=== PATIENT | male | born 1980 | race Caucasian/White ===

== ENCOUNTER 2017-08-26 16:59 | Emergency (ER) | payer SELFPAY ==
[~2017-08-26] VITALS: Ht 193 cm; Wt 111.1 kg
[~2017-08-26 16:59] MED LIST: ALBU0.632 IH; CLIN-62 PO; CODE-54 PO; DOXY-233 PO; DOXY100C2 PO; HYDR-3583 PO; HYDR1TAB PO; PIRB14AE4 IH
--- OUTSIDE RECORDS SUMMARY | 2017-08-26 17:05 | XMS REPORT ---
Author Author HERIBERTO BRO [facility] Address [address] [place] [address] Care Team Providers Care Sales Department Clerk Name Role Phone HERIBERTO BRO Unavailable PROBLEMS Type Condition ICD9-CM Code [id number] Code Onset Dates Condition Status SNOMED Code Problem Uncontrolled type 2 diabetes mellitus without complication, without long-term current use of insulin E11.65 Active 493049707 Problem Diabetes type 2, uncontrolled E11.65 Active 860817167 Problem Diabetes type 2, controlled E11.9 Active 28437146 Problem Hypertension, benign I10 Active 30918510 Problem Hyperlipemia, mixed E78.2 Active 842090249 ALLERGIES Substance Reaction Event Type Date Status Penicillin V Potassium Unknown Drug Allergy October, Active SOCIAL HISTORY Never Assessed PLAN OF CARE Activity Details Follow Up 4 Weeks Reason:dm2 ooc VITAL SIGNS Height 76 in 2016-10-26 Weight 230 lbs 2016-10-26 Temperature 98.3 degrees Fahrenheit 2016-10-26 Heart Rate 74 bpm 2016-10-26 Respiratory Rate 18 2016-10-26 BMI 27.99 kg/m2 2016-10-26 Blood pressure systolic 126 mmHg 2016-10-26 Blood pressure diastolic 68 mmHg 2016-10-26 MEDICATIONS Medication Instructions Dosage Frequency Start Date End Date Duration Status MetFORMIN HCl ER 500 mg Orally twice a day 2 tablets 12h Sep, 30 day(s) Active Proventil HFA 108 (90 Base) MCG/ACT Inhalation 4 times a day 2 puffs as needed 6h Jul, Active Glucocard Expression Test 1 In Vitro Once a day test blood sugar 24h October Active RESULTS Name Result Date Reference Range A1C (IN HOUSE) 2016-10-26 A1C IN HOUSE 13.5 4.3 - 5.6 % Previous A1c 12.5 Lot [id number] Exp date 06/2018 MICROALBUMIN, URINE (IN HOUSE) 2016-10-26 MICROALBUMIN normal Lot # [id number] Exp date 09/2017 Clarity clear Color orange ALB 10 CRE 100 A:C (IN HOUSE) <30 Control + Control Lot # Exp date PROCEDURES Procedure Date Ordered Result Body Site GLYCATED HEMOGLOBIN TEST October 26, 2016 MICROALBUMIN, SEMIQUANT October 26, 2016 IMMUNIZATIONS No Known Immunizations MEDICAL (GENERAL) HISTORY Type Description Date Medical History diabetes Medical History asthma Hospitalization History pneumonia 1990
--- OUTSIDE RECORDS SUMMARY | 2017-08-26 17:05 | XMS REPORT ---
Author Author HERIBERTO BRO Organization [employer] Address Unknown Phone Unavailable Care Team Providers Care Dry Cell Sealer Name Role Phone HERIBERTO BRO CP Unavailable Allergies, Adverse Reactions, Alerts Substance Reaction Event Type Penicillin V Potassium Info Not Available Drug Allergy Problems Problem Type Condition Code Onset Dates Condition Status Problem Diabetes type 2, controlled E11.9 Active Problem Hyperlipemia, mixed E78.2 Active Problem Hypertension, benign I10 Active Assessment Diabetes type 2, controlled E11.9 Active Assessment Hypertension, benign I10 Active Medications Medication Code System Code Instructions Start Date End Date Status Dosage Proventil HFA [facility] [address]-08 108 (90 Base) MCG/ACT Inhalation 4 times a day Jul 08, 2015 2 puffs as needed Procedures Procedure Coding System Code Date Office Visit, Est Pt., Level 3 CPT-4 48859 Jul 08, 2015 Vital Signs Date/Time: Jul 08, 2015 Temperature 97.5 F Weight 263 lbs Height 76 in BMI 32.01 Index Blood Pressure Diastolic 84 mmHg Blood Pressure Systolic 132 mmHg Cardiac Monitoring Heart Rate 84 bpm Results No Known Results Summary Purpose [employer] Submission
--- OUTSIDE RECORDS SUMMARY | 2017-08-26 17:06 | XMS REPORT ---
Author Author HERIBERTO BRO Organization [employer] Address Unknown Phone Unavailable Care Team Providers Care Bed Control Specialist Name Role Phone HERIBERTO BRO CP Unavailable Allergies, Adverse Reactions, Alerts Substance Reaction Event Type Penicillin V Potassium Info Not Available Drug Allergy Problems Problem Type Condition Code Onset Dates Condition Status Problem Hypertension, benign I10 Active Problem Diabetes type 2, controlled E11.9 Active Problem Diabetes type 2, uncontrolled E11.65 Active Problem Hyperlipemia, mixed E78.2 Active Assessment Diabetes type 2, uncontrolled E11.65 Active Medications Medication Code System Code Instructions Start Date End Date Status Dosage MetFORMIN HCl ER [facility] [address]-52 500 MG Orally twice a day October 03, 2015 2 tablets Proventil HFA [facility] [address]-48 108 (90 Base) MCG/ACT Inhalation 4 times a day Jul 08, 2015 2 puffs as needed Procedures Procedure Coding System Code Date GLYCATED HEMOGLOBIN TEST CPT-4 39523 October 03, 2015 MICROALBUMIN, SEMIQUANT CPT-4 53801 October 03, 2015 Office Visit, Est Pt., Level 3 CPT-4 51800 October 03, 2015 Vital Signs Date/Time: October 03, 2015 Temperature 98.0 F Weight 254.1 lbs Height 76 in BMI 30.93 Index Blood Pressure Diastolic 80 mmHg Blood Pressure Systolic 112 mmHg Cardiac Monitoring Heart Rate 72 bpm Results No Known Results Summary Purpose [employer] Submission
--- OUTSIDE RECORDS SUMMARY | 2017-08-26 17:06 | XMS REPORT ---
Author HERIBERTO Zavala Organization [employer] Address Unknown Phone Unavailable Care Team Providers Care Laboratory Analyst Name Role Phone HERIBERTO BRO CP Unavailable Allergies No Known Allergies Problems Problem Type Condition Code Onset Dates Condition Status Problem Hypertension, benign I10 Active Problem Diabetes type 2, controlled E11.9 Active Problem Diabetes type 2, uncontrolled E11.65 Active Problem Hyperlipemia, mixed E78.2 Active Medications No Known Medications Results No Known Results Summary Purpose [employer] Submission
[2017-08-26] MEDS ORDERED: METF1000 PO (17:14)
[2017-08-26] MEDS ORDERED: NS IV 1000 ML 1,000 ML IV SCH (17:45)
--- NOTE | 2017-08-26 17:48 | ED Abdominal Pain ---
General Chief Complaint: Abdominal/GI Problems Stated Complaint: L SIDE PAIN Nursing Triage Note: C/O OF L-SIDE PAIN THAT STARTED 2 NIGHTS AGO. WORSE AFTER EATING ET WORSE LAST NIGHT. PATIENT STATED HE VOMITTED SOME LAST NIGHT. Sepsis Screen: No Definite Risk History of Present Illness Date Seen by Provider: Aug 26, 2017 Time Seen by Provider: 17:45 Initial Comments Patient is a 37-year-old male presents to the emergency room with left upper quadrant abdominal pain, nausea, vomiting that started 2 days ago. Patient is not nauseated today and has not vomited since yesterday. Timing/Duration: 1-2 Days Severity/Quality: Mild Location: [facility] Radiation: No Radiation Modifying Factors: Worsens With Eating Associated Symptoms: Nausea/Vomiting Allergies and Home Medications Allergies Coded Allergies: Penicillins (Unverified Allergy, Mild, 01/29/09) Home Medications Albuterol Sulfate 0.63 Mg/3 Ml Vial.neb, 1 EACH IH Q4HR PRN Prescribed by: GUTIERREZ PHAN on 07/16/12 141 Doxycycline Hyclate 100 Mg Capsule, 1 EACH PO BID FOR INFECTION Prescribed by: GUTIERREZ PHAN on 07/16/12 1414 Metformin HCl 1,000 Mg Tablet, 1,000 MG PO BID, (Reported) Naproxen Sodium 550 Mg Tablet, 550 MG PO BID Prescribed by: WALTER NAVARRETE on 08/26/171910 Patient Home Medication List Home Medication List Reviewed: Yes Review of Systems Constitutional: no symptoms reported, see HPI EENTM: No Symptoms Reported, See HPI Respiratory: No Symptoms Reported, See HPI Cardiovascular: No Symptoms Reported Gastrointestinal: Abdominal Pain, Nausea, Vomiting Genitourinary: No Symptoms Reported, See HPI Musculoskeletal: no symptoms reported, see HPI Skin: no symptoms reported, see HPI Psychiatric/Neurological: No Symptoms Reported, See HPI Endocrine: No Symptoms Reported, See HPI Hematologic/Lymphatic: No Symptoms Reported, See HPI Past Ctotyof-Wojfzp-Lvizao Hx Patient Social History Alcohol Use: Denies Use Recreational Drug Use: No Smoking Status: Current Everyday Smoker Type Used: Cigarettes Recent Foreign Travel: No Contact w/Someone Who Travel: No Recent Infectious Disease Expo: No Recent Hopitalizations: No Seasonal Allergies Seasonal Allergies: No Surgeries History of Surgeries: No Respiratory Respiratory Disorders: Asthma Cardiovascular History of Cardiac Disorders: No Neurological History of Neurological Disord: Yes (BELLS PALSY) Genitourinary History of Genitourinary Disor: No Gastrointestinal History of Gastrointestinal Di: No Musculoskeletal History of Musculoskeletal Dis: Yes Musculoskeletal Disorders: Chronic Back Pain Endocrine History of Endocrine Disorders: Yes Endocrine Disorders: Diabetes, Non-Insulin dep Are Your Blood Sugars Over 250: Yes HEENT History of HEENT Disorders: No Cancer History of Cancer: No Psychosocial History of Psychiatric Problem: Yes Behavioral Health Disorders: Depression Integumentary History of Skin or Integumenta: No Blood Transfusions History of Blood Disorders: No Adverse Reaction to a Blood Tr: No Physical Exam Vital Signs VS - Last 72 Hours, by Label 08/26/17 08/26/17 17:08 18:45 Temp 97.7 97.7 Pulse 81 Resp 18 B/P (MAP) 120/74 (89) Pulse Ox 98 O2 Delivery Room Air Capillary Refill : Less Than 3 Seconds General Appearance: no apparent distress HEENT: PERRL/EOMI Neck: non-tender, full range of motion Respiratory: lungs clear, normal breath sounds, no respiratory distress, no accessory muscle use Cardiovascular: normal peripheral pulses, regular rate, rhythm, no edema, no gallop Gastrointestinal: normal bowel sounds, soft, tenderness (left upper quadrant) Extremities: normal range of motion, normal inspection Back: normal inspection Pelvic: normal external exam Neurologic/Psychiatric: product engineering manager II-XII nml as tested, alert, normal mood/affect, oriented x 3 Skin: normal color Progress/Results/Core Measures Results/Orders Lab Results Laboratory Tests Test 08/26/17 17:42 08/26/17 18:14 Range/Units Urine Color YELLOW Urine Clarity CLEAR Urine pH 7 5-9 Urine Specific [place] 1.010 L 1.016-1.022 Urine Protein NEGATIVE NEGATIVE Urine Glucose (UA) 4+ H NEGATIVE Urine Ketones NEGATIVE NEGATIVE Urine Nitrite NEGATIVE NEGATIVE Urine Bilirubin NEGATIVE NEGATIVE Urine Urobilinogen NORMAL NORMAL MG/DL Urine Leukocyte Esterase NEGATIVE NEGATIVE Urine RBC (Auto) NEGATIVE NEGATIVE Urine RBC NONE /HPF Urine WBC NONE /HPF Urine Squamous Epithelial Cells RARE /HPF Urine Crystals NONE /LPF Urine Bacteria NONE /HPF Urine Casts NONE /LPF Urine Mucus NEGATIVE /LPF Urine Culture Indicated NO White Blood Count 7.7 4.3-11.0 10^3/uL Red Blood Count 5.56 4.35-5.85 10^6/uL Hemoglobin 17.7 13.3-17.7 G/DL Hematocrit 48 40-54 % Mean Corpuscular Volume 86 80-99 FL Mean Corpuscular Hemoglobin 32 25-34 PG Mean Corpuscular Hemoglobin Concent 37 H 32-36 G/DL Red Cell Distribution Width 12.9 10.0-14.5 % Platelet Count 195 130-400 10^3/uL Mean Platelet Volume 10.7 H 7.4-10.4 FL Neutrophils (%) (Auto) 55 42-75 % Lymphocytes (%) (Auto) 33 12-44 % Monocytes (%) (Auto) 9 0-12 % Eosinophils (%) (Auto) 2 0-10 % Basophils (%) (Auto) 1 0-10 % Neutrophils # (Auto) 4.2 1.8-7.8 X 10^3 Lymphocytes # (Auto) 2.5 1.0-4.0 X 10^3 Monocytes # (Auto) 0.7 0.0-1.0 X 10^3 Eosinophils # (Auto) 0.2 0.0-0.3 10^3/uL Basophils # (Auto) 0.1 0.0-0.1 10^3/uL Sodium Level 134 L 135-145 MMOL/L Potassium Level 3.8 3.6-5.0 MMOL/L Chloride Level 100 98-107 MMOL/L Carbon Dioxide Level 28 21-32 MMOL/L Anion Gap 6 5-14 MMOL/L Blood Urea Nitrogen 14 7-18 MG/DL Creatinine 0.71 0.60-1.30 MG/DL Estimat Glomerular Filtration Rate > 60 BUN/Creatinine Ratio 20 Glucose Level 208 H 70-105 MG/DL Calcium Level 9.8 8.5-10.1 MG/DL Total Bilirubin 0.6 0.1-1.0 MG/DL Aspartate Amino Transf (AST/SGOT) 14 5-34 U/L Alanine Aminotransferase (ALT/SGPT) 22 0-55 U/L Alkaline Phosphatase 58 40-136 U/L Total Protein 6.9 6.4-8.2 GM/DL Albumin 4.1 3.2-4.5 GM/DL Lipase 34 8-78 U/L My Orders Orders - WALTER NAVARRETE [employer] Cbc With Automated Diff (08/26/17 17:42) Comprehensive Metabolic Panel (08/26/17 17:42) Saline Lock/Iv-Start (08/26/17 17:42) Ns Iv 1000 Ml (Sodium Chloride 0.9%) (08/26/17 17:45) Lipase (08/26/17 17:42) Ua Culture If Indicated (08/26/17 17:42) Ct Abdomen/Pelvis W (08/26/17 17:53) Fentanyl Injection (Sublimaze Injection (08/26/17 18:00) Iohexol Injection (Omnipaque 350 Mg/Ml 1 (08/26/17 18:15) Ns (Ivpb) (Sodium Chloride 0.9%) (08/26/17 18:15) Medications Given in ED Current Medications Medications Dose Ordered Sig/Nelli Route Start Time Stop Time Status Last Admin Dose Admin Fentanyl Citrate 50 mcg ONCE ONCE IVP 08/26/17 18:00 08/26/17 18:01 DC 08/26/17 18:45 50 MCG Iohexol 100 ml ONCE ONCE IV 08/26/17 18:15 08/26/17 18:16 DC 08/26/17 18:22 100 ML Sodium Chloride 250 ml ONCE ONCE IV 08/26/17 18:15 08/26/17 18:16 DC 08/26/17 18:23 80 ML Vital Signs/I&O Vital Sign - Last 12Hours 08/26/17 08/26/17 17:08 18:45 Temp 97.7 97.7 Pulse 81 Resp 18 B/P (MAP) 120/74 (89) Pulse Ox 98 O2 Delivery Room Air Blood Pressure Mean: 89 Departure Impression Impression: Primary Impression: Costochondral pain Disposition: 01 HOME, SELF-CARE Condition: Stable/Unchanged Departure-Patient Inst. Decision time for Depature: 19:08 Referrals: [facility] (PCP/Family) Primary Care Physician Patient Instructions: Costochondritis Add. Discharge Instructions: Take medications as directed. Follow-up with [facility] in 1 week if no improvement. Return back to the emergency room for worsening symptoms. All discharge instructions reviewed with patient and/or family. Voiced understanding. Scripts Naproxen Sodium (Anaprox Ds) 550 Mg Tablet 550 MG PO BID for Pain for 7 Days, #14 TAB Prov: WALTER NAVARRETE APRN 08/26/17 Work/School Note: Work Release Form Date Seen in the Emergency Department: Aug 26, 2017 Return to Work: Aug 28, 2017 Restrictions: No Restrictions WALTER NAVARRETE APRN Aug 26, 2017 17:48
[2017-08-26] MEDS ORDERED: fentaNYL INJECTION 100 MCG/2 ML AMP IVP ONE (18:00)
[2017-08-26] MEDS ORDERED: IOHEXOL 350 MG/ML 100 ML (OMNIPAQUE 350) VIAL IV ONE (18:15)
[2017-08-26] MEDS ORDERED: NS 250 ML (IVPB) BAG IV ONE (18:15)
[2017-08-26 18:23] LABS: BASOPHILS # (AUTO) 0.1 10^3/uL (0.0-0.1); BASOPHILS % (AUTO) 1 % (0-10); EOSINOPHILS # (AUTO) 0.2 10^3/uL (0.0-0.3); EOSINOPHILS % (AUTO) 2 % (0-10); HEMATOCRIT 48 % (40-54); HEMOGLOBIN 17.7 G/DL (13.3-17.7); LYMPHOCYTES # (AUTO) 2.5 X 10^3 (1.0-4.0); LYMPHOCYTES % (AUTO) 33 % (12-44); MEAN CORPUSCULAR HEMOGLOBIN 32 PG (25-34); MEAN CORPUSCULAR HGB CONC 37 G/DL (32-36); MEAN CORPUSCULAR VOLUME 86 FL (80-99); MEAN PLATELET VOLUME 10.7 FL (7.4-10.4); MONOCYTES # (AUTO) 0.7 X 10^3 (0.0-1.0); MONOCYTES % (AUTO) 9 % (0-12); NEUTROPHILS # (AUTO) 4.2 X 10^3 (1.8-7.8); NEUTROPHILS % (AUTO) 55 % (42-75); PLATELET COUNT 195 10^3/uL (130-400); RED BLOOD COUNT 5.56 10^6/uL (4.35-5.85); RED CELL DISTRIBUTION WIDTH 12.9 % (10.0-14.5); WHITE BLOOD COUNT 7.7 10^3/uL (4.3-11.0)
[2017-08-26 18:24] LABS: BILIRUBIN,URINE NEGATIVE (NEGATIVE); CLARITY,URINE CLEAR; COLOR,URINE YELLOW; GLUCOSE, URINE (UA) 4+ (NEGATIVE); KETONES,URINE NEGATIVE (NEGATIVE); LEUKOCYTE ESTERASE ,URINE NEGATIVE (NEGATIVE); NITRITE,URINE NEGATIVE (NEGATIVE); PH,URINE 7 (5-9); PROTEIN,URINE NEGATIVE (NEGATIVE); UROBILINOGEN,URINE NORMAL (NORMAL)
[2017-08-26 18:33] LABS: SQUAMOUS EPITHELIAL CELL,UR RARE /HPF
--- NOTE | 2017-08-26 18:45 | Diagnostic Imaging Report ---
PROCEDURE: CT abdomen and pelvis with contrast. TECHNIQUE: Multiple contiguous axial images were obtained through the abdomen and pelvis after administration of intravenous contrast. INDICATION: Left-sided abdominal pain for 24 hours. COMPARISON: 04/30/2007 FINDINGS: There is minimal atelectasis in the lingula, otherwise the lung bases are clear. The heart is normal in size. There is no pericardial effusion. No focal hepatic lesions are seen. The spleen is unremarkable. The pancreas appears normal. The adrenal glands are normal. There is a prominent right extrarenal pelvis, which appears increased since 2006; however, no obstructing calculi are seen. Density in the inferior right kidney may represent a nonobstructing stone versus early excretion of contrast. The left kidney is unremarkable. The bowel loops are nondistended. There is no evidence of obstruction. The appendix is normal. Mild to moderate stool is seen throughout the colon. No free fluid or free air is identified. No significant adenopathy is appreciated. There is mild bladder wall thickening, please correlate with urinalysis. No acute osseous abnormality is seen. IMPRESSION: 1. Mild prominence of the right extrarenal pelvis, appears increased since 2006, however no obstructing renal calculi are seen. Mild bladder wall thickening, please correlate with urinalysis. 2. No evidence of bowel obstruction. No appendicitis. Dictated by: Dictated on workstation # [id number]
[2017-08-26 18:49] LABS: ALANINE AMINOTRANSFERASE 22 U/L (0-55); ALBUMIN 4.1 GM/DL (3.2-4.5); ALKALINE PHOSPHATASE 58 U/L (40-136); BILIRUBIN,TOTAL 0.6 MG/DL (0.1-1.0); BUN/CREATININE RATIO 20; CALCIUM 9.8 MG/DL (8.5-10.1); CARBON DIOXIDE 28 MMOL/L (21-32); CHLORIDE 100 MMOL/L (98-107); CREATININE SERUM 0.71 MG/DL (0.60-1.30); GFR ESTIMATED > 60; GLUCOSE 208 MG/DL (70-105); LIPASE 34 U/L (8-78); POTASSIUM 3.8 MMOL/L (3.6-5.0); SODIUM 134 MMOL/L (135-145); TOTAL PROTEIN 6.9 GM/DL (6.4-8.2)
[2017-08-26] MEDS ORDERED: NAPR-1070 PO (19:11)
[2017-08-26 19:30] VITALS: BP 122/80
== END 2017-08-26 19:30 | disposition home or self-care (01) ==
LOC: EDUNIT# 16:59 → ER 17:01
DX: R07.1 Chest pain on breathing (principal); J45.909 Unspecified asthma, uncomplicated; G51.0 Bell's palsy; E11.9 Type 2 diabetes mellitus without complications; F32.9 Major depressive disorder, single episode, unspecified; F17.210 Nicotine dependence, cigarettes, uncomplicated; Z88.0 Allergy status to penicillin; Z79.84 Long term (current) use of oral hypoglycemic drugs; Z79.51 Long term (current) use of inhaled steroids
CPT/HCPCS: 36415; 74177; 80053; 81000; 83690; 85025; 96374

== ENCOUNTER 2018-03-29 17:15 | Emergency (ER) | payer SELFPAY ==
[~2018-03-29] VITALS: Ht 193 cm; Wt 113.4 kg
[~2018-03-29 17:15] MED LIST changes: +METF-399 PO; +NAPR-1070 PO
[2018-03-29 18:26] LABS: BASOPHILS # (AUTO) 0.1 10^3/uL (0.0-0.1); BASOPHILS % (AUTO) 1 % (0-10); EOSINOPHILS # (AUTO) 0.2 10^3/uL (0.0-0.3); EOSINOPHILS % (AUTO) 4 % (0-10); HEMATOCRIT 45 % (40-54); HEMOGLOBIN 16.3 G/DL (13.3-17.7); LYMPHOCYTES # (AUTO) 2.4 X 10^3 (1.0-4.0); LYMPHOCYTES % (AUTO) 40 % (12-44); MEAN CORPUSCULAR HEMOGLOBIN 31 PG (25-34); MEAN CORPUSCULAR HGB CONC 36 G/DL (32-36); MEAN CORPUSCULAR VOLUME 84 FL (80-99); MEAN PLATELET VOLUME 11.6 FL (7.4-10.4); MONOCYTES # (AUTO) 0.6 X 10^3 (0.0-1.0); MONOCYTES % (AUTO) 10 % (0-12); NEUTROPHILS # (AUTO) 2.7 X 10^3 (1.8-7.8); NEUTROPHILS % (AUTO) 45 % (42-75); PLATELET COUNT 190 10^3/uL (130-400); RED BLOOD COUNT 5.33 10^6/uL (4.35-5.85); RED CELL DISTRIBUTION WIDTH 12.8 % (10.0-14.5)
--- NOTE | 2018-03-29 18:28 | ED Abdominal Pain ---
General Chief Complaint: Abdominal/GI Problems Stated Complaint: LLQ PAIN Source of Information: Patient, Spouse Exam Limitations: No Limitations History of Present Illness Date Seen by Provider: Mar 29, 2018 Time Seen by Provider: 18:12 Initial Comments Patient presents to ER by private chief complaint that he is having left lower quadrant abdominal pain started out small last night and is progressively getting worse. It's constant but waxes and wanes in severity from 7-10. He describes it as feeling a sharp stabbing motion. Left lower quadrant not radiating anywhere. He says he is diabetic and does not take metformin and glimepiride as prescribed and does not check his blood sugars regularly but a few weeks ago his blood sugars 300. He claims he has urinary frequency but no dysuria, fevers or chills. He's had some nausea and vomited twice today. No history of abdominal surgeries no other significant medical problems and is aware of. Denies a history of pancreatitis or urinary stones. Last bowel movement was earlier today loose nonbloody diarrhea. He took 800 mg of Profen twice a day with the last dose being between 4 and 5:00, approximately an hour and a half ago. Allergies and Home Medications Allergies Coded Allergies: Penicillins (Unverified Allergy, Mild, 01/29/09) Home Medications Albuterol Sulfate 0.63 Mg/3 Ml Vial.neb, 1 EACH IH Q4HR PRN Prescribed by: GUTIERREZ PHAN on 07/16/12 141 Doxycycline Hyclate 100 Mg Capsule, 1 EACH PO BID FOR INFECTION Prescribed by: GUTIERREZ PHAN on 07/16/12 141 Insulin Determir 1,000 Units/10 Ml Soln, 15 UNITS SQ DAILY Prescribed by: RIGOBERTO GONZALES on 03/29/182025 Metformin HCl 1,000 Mg Tablet, 1,000 MG PO BID, (Reported) Naproxen Sodium 550 Mg Tablet, 550 MG PO BID Prescribed by: WALTER NAVARRETE on 08/26/171910 Ondansetron 4 Mg Tab.rapdis, 4 MG PO Q6H PRN for NAUSEA/VOMITING Prescribed by: RIGOBERTO GONZALES on 03/29/182025 Patient Home Medication List Home Medication List Reviewed: Yes Review of Systems Review of Systems Constitutional: No chills, No diaphoresis, No fever EENTM: No Blurred Vision, No Double Vision Respiratory: Denies Cough, Denies Shortness of Air Cardiovascular: Denies Chest Pain, Denies Lightheadedness Gastrointestinal: Denies Abdomen Distended; Abdominal Pain; Denies Blood Streaked Stools, Denies Constipated; Diarrhea, Nausea, Poor Appetite, Poor Fluid Intake; Denies Rectal Bleeding; Vomiting Genitourinary: Denies Burning; Frequency Musculoskeletal: No back pain, No joint pain Skin: No pruritus, No rash Psychiatric/Neurological: Denies Headache, Denies Numbness Past Hbzaivu-Hbofte-Ylyfek Hx Patient Social History Alcohol Use: Denies Use Recreational Drug Use: No Smoking Status: Current Everyday Smoker Type Used: Cigarettes Recent Foreign Travel: No Contact w/Someone Who Travel: No Recent Hopitalizations: No Seasonal Allergies Seasonal Allergies: No Past Medical History Surgeries: No Asthma Cardiac: No Neurological: Yes (BELLS PALSY) Genitourinary: No Gastrointestinal: No Musculoskeletal: Yes Chronic Back Pain Endocrine: Yes Diabetes, Non-Insulin dep HEENT: No Cancer: No Psychosocial: Yes Depression Integumentary: No Blood Disorders: No Adverse Reaction/Blood Tranf: No Physical Exam Vital Signs Vital Signs - First Documented 03/29/18 17:49 Temp 98.3 Pulse 74 Resp 16 B/P (MAP) 105/66 (79) Pulse Ox 96 O2 Delivery Room Air Capillary Refill : Height/Weight/BMI Height: 6'4" Weight: 245lbs. oz. 111.702704yz; 42.60 BMI Method:Stated General Appearance: WD/WN, mild distress HEENT: PERRL/EOMI, normal ENT inspection, pharynx normal (Oropharynx is dry) Neck: non-tender, supple, normal inspection Respiratory: chest non-tender, lungs clear, normal breath sounds, no respiratory distress, no accessory muscle use Cardiovascular: normal peripheral pulses, regular rate, rhythm, no edema Peripheral Pulses: 2+ Radial Pulses (R), 2+ Radial Pulses (L) Gastrointestinal: normal bowel sounds, no organomegaly, no pulsatile mass, guarding, tenderness (Left lower quadrant and left upper quadrant as well as some tenderness in the midepigastric region.), other Extremities: normal range of motion, normal capillary refill Neurologic/Psychiatric: alert, normal mood/affect, oriented x 3 Skin: normal color, warm/dry Progress/Results/Core Measures Results/Orders Lab Results Laboratory Tests Test 03/29/18 18:00 03/29/18 19:10 Range/Units White Blood Count 6.0 4.3-11.0 10^3/uL Red Blood Count 5.33 4.35-5.85 10^6/uL Hemoglobin 16.3 13.3-17.7 G/DL Hematocrit 45 40-54 % Mean Corpuscular Volume 84 80-99 FL Mean Corpuscular Hemoglobin 31 25-34 PG Mean Corpuscular Hemoglobin Concent 36 32-36 G/DL Red Cell Distribution Width 12.8 10.0-14.5 % Platelet Count 190 130-400 10^3/uL Mean Platelet Volume 11.6 H 7.4-10.4 FL Neutrophils (%) (Auto) 45 42-75 % Lymphocytes (%) (Auto) 40 12-44 % Monocytes (%) (Auto) 10 0-12 % Eosinophils (%) (Auto) 4 0-10 % Basophils (%) (Auto) 1 0-10 % Neutrophils # (Auto) 2.7 1.8-7.8 X 10^3 Lymphocytes # (Auto) 2.4 1.0-4.0 X 10^3 Monocytes # (Auto) 0.6 0.0-1.0 X 10^3 Eosinophils # (Auto) 0.2 0.0-0.3 10^3/uL Basophils # (Auto) 0.1 0.0-0.1 10^3/uL Sodium Level 132 L 135-145 MMOL/L Potassium Level 4.3 3.6-5.0 MMOL/L Chloride Level 101 98-107 MMOL/L Carbon Dioxide Level 19 L 21-32 MMOL/L Anion Gap 12 5-14 MMOL/L Blood Urea Nitrogen 11 7-18 MG/DL Creatinine 0.95 0.60-1.30 MG/DL Estimat Glomerular Filtration Rate > 60 BUN/Creatinine Ratio 12 Glucose Level 539 *H 70-105 MG/DL Calcium Level 9.2 8.5-10.1 MG/DL Corrected Calcium 9.2 8.5-10.1 MG/DL Magnesium Level 2.0 1.8-2.4 MG/DL Total Bilirubin 0.5 0.1-1.0 MG/DL Aspartate Amino Transf (AST/SGOT) 15 5-34 U/L Alanine Aminotransferase (ALT/SGPT) 31 0-55 U/L Alkaline Phosphatase 76 40-136 U/L Total Protein 7.1 6.4-8.2 GM/DL Albumin 4.0 3.2-4.5 GM/DL Triglycerides Level 384 H <150 MG/DL Lipase 15 8-78 U/L Urine Color YELLOW Urine Clarity CLEAR Urine pH 5 5-9 Urine Specific [place] 1.015 L 1.016-1.022 Urine Protein NEGATIVE NEGATIVE Urine Glucose (UA) 4+ H NEGATIVE Urine Ketones NEGATIVE NEGATIVE Urine Nitrite NEGATIVE NEGATIVE Urine Bilirubin NEGATIVE NEGATIVE Urine Urobilinogen NORMAL NORMAL MG/DL Urine Leukocyte Esterase NEGATIVE NEGATIVE Urine RBC (Auto) NEGATIVE NEGATIVE Urine RBC NONE /HPF Urine WBC RARE /HPF Urine Crystals NONE /LPF Urine Bacteria NEGATIVE /HPF Urine Casts NONE /LPF Urine Mucus NEGATIVE /LPF Urine Culture Indicated NO Urine Opiates Screen NEGATIVE NEGATIVE Urine Oxycodone Screen NEGATIVE NEGATIVE Urine Methadone Screen NEGATIVE NEGATIVE Urine Propoxyphene Screen NEGATIVE NEGATIVE Urine Barbiturates Screen NEGATIVE NEGATIVE Ur Tricyclic Antidepressants Screen NEGATIVE NEGATIVE Urine Phencyclidine Screen NEGATIVE NEGATIVE Urine Amphetamines Screen NEGATIVE NEGATIVE Urine Methamphetamines Screen NEGATIVE NEGATIVE Urine Benzodiazepines Screen NEGATIVE NEGATIVE Urine Cocaine Screen NEGATIVE NEGATIVE Urine Cannabinoids Screen NEGATIVE NEGATIVE My Orders Orders - RIGOBERTO GONZALES Cbc With Automated Diff (03/29/18 18:19) Comprehensive Metabolic Panel (03/29/18 18:19) Drug Screen Stat (Urine) (03/29/18 18:19) Lipase (03/29/18 18:19) Magnesium (03/29/18 18:19) Ua Culture If Indicated (03/29/18 18:19) Saline Lock/Iv-Start (03/29/18 18:19) Ns Iv 1000 Ml (Sodium Chloride 0.9%) (03/29/18 18:19) Fentanyl Injection (Sublimaze Injection (03/29/18 18:30) Ondansetron Injection (Zofran Injectio (03/29/18 18:30) Triglycerides (03/29/18 18:28) Ct Abdomen/Pelvis W (03/29/18 18:29) Iohexol Injection (Omnipaque 350 Mg/Ml 1 (03/29/18 18:45) Ns (Ivpb) (Sodium Chloride 0.9%) (03/29/18 18:45) Insulin (Regular) Human (Humulin R (Per (10/23/18 20:15) Medications Given in ED Current Medications Medications Dose Ordered Sig/Nelli Route Start Time Stop Time Status Last Admin Dose Admin Fentanyl Citrate 50 mcg ONCE ONCE IVP 03/29/18 18:30 03/29/18 18:31 DC 03/29/18 18:35 50 MCG Insulin Human Regular 10 unit ONCE ONCE SC 03/29/18 20:15 03/29/18 20:16 DC 03/29/18 20:17 10 UNIT Iohexol 100 ml ONCE ONCE IV 03/29/18 18:45 03/29/18 18:50 DC 03/29/18 19:21 100 ML Ondansetron HCl 4 mg ONCE ONCE IVP 03/29/18 18:30 03/29/18 18:31 DC 03/29/18 18:35 4 MG Sodium Chloride 250 ml ONCE ONCE IV 03/29/18 18:45 03/29/18 18:50 DC 03/29/18 19:21 80 ML Vital Signs/I&O 03/29/18 17:49 Temp 98.3 Pulse 74 Resp 16 B/P (MAP) 105/66 (79) Pulse Ox 96 O2 Delivery Room Air Progress Progress Note #1: Time: 18:30 Progress Note Patient recently had NSAIDs so we will start with fentanyl for his discomfort, Zofran for his nausea and 2 L of fluid which would be about 20 mL/kg bolus based on an estimated weight of 240 pounds. Concerns include things such as hyperglycemia, diverticulitis or even pancreatitis since he's having some tenderness in his midepigastric region but they could also be due to his recent vomiting. Check a triglyceride level and get a CT of the abdomen and pelvis with contrast IV. Progress Note #2: Time: 20:41 Progress Note Nursing did some rate teaching on how to drop insulin and give subcutaneous. 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 There is no primary care doctor on-call that we can talk to vitajony so we have asked him to insist on being seen this week. Diagnostic Imaging Diagonstic Imaging: CT (with contrast) Plain Films/CT/US/NM/MRI: abdomen, pelvis Comments NAME: JAELYNTRIXIE [facility] REC#: [id number] PHYSICIAN: RIGOBERTO GONZALES MD CC: BYRON ROY MD; RIGOBERTO GONZALES Page 2 of 2 RADIOLOGY REPORT VIA [facility], [facility]. [place], [place] CC: BYRON ROY MD; RIGOBERTO GONZALES Page 1 of 1 RADIOLOGY REPORT NAME: TRIXIE CHRISTY MED REC#: [id number] PT STATUS: REG ER : 1980 PHYSICIAN: RIGOBERTO GONZALES MD ADMIT DATE: 03/29/18/ER Signed Date of Exam: 03/29/18 CT ABDOMEN/PELVIS W PROCEDURE: CT abdomen and pelvis with contrast. TECHNIQUE: Multiple contiguous axial images were obtained through the abdomen and pelvis after administration of intravenous contrast. INDICATION: Left lower quadrant pain with nausea, vomiting and diarrhea. Comparison is made with prior CT from 08/26/2017. The lung bases are clear. No discrete liver mass is identified. The gallbladder is contracted. The pancreas and spleen are unremarkable. No adrenal mass is identified. Small nonobstructing calculus lower pole right kidney is again seen. Extrarenal pelvis on the right is again noted. No definite ureteral calculi are detected. The aorta is nonaneurysmal. Small and large bowel loops are normal caliber. The appendix is visualized and unremarkable. No inflammatory changes in the left lower quadrant are identified. No fluid collection or free air seen. The bladder is unremarkable. IMPRESSION: 1. A tiny nonobstructing right renal calculus. CT of the abdomen and pelvis is otherwise unremarkable. No acute feature is detected. Dictated by: Dictated on workstation # [id number] Dict: 03/29/181934 Trans: 03/29/181940 Interpreted by: BYRNO ROY MD Electronically signed by: BYRON ROY MD 03/29/181940 Reviewed: Reviewed by Me Departure Impression Primary Impression: Diabetes type 2, uncontrolled Qualified Codes: E11.65 - Type 2 diabetes mellitus with hyperglycemia Additional Impression: Gastroenteritis and colitis, viral Disposition: 01 HOME, SELF-CARE Condition: Stable Departure-Patient Inst. Decision time for Depature: 20:25 Referrals: [facility] (PCP/Family) Primary Care Physician Patient Instructions: [id number], Hyperglycemia, Adult (DC) Add. Discharge Instructions: Fluids. Use the nausea medicine one tablet every 6 hours as needed if you are going to vomit. A bland diet consisting of food such as bananas, rice, applesauce and toast. Follow up with your primary care provider either this week or early next week. Obtain a glucometer and start taking blood sugar first thing in the morning while you're fasting and then 2 hours after the largest meal of the day. scouring pads supervisor the syringes and Levemir and start taking 15 units after you take your morning blood sugar. All discharge instructions reviewed with patient and/or family. Voiced understanding. Scripts Syring W-Ndl,Disp,Insul,0.5 ml (Insulin Syringe) 1 Each Disp.syrin EACH MC DAILY for Abdominal Pain, #100 0 Refills Prov: RIGOBERTO GONZALES 03/29/18 Insulin Determir (Levemir) 1,000 Units/10 Ml Soln 15 UNITS SQ DAILY for 30 Days, #1 EA 0 Refills Prov: RIGOBERTO GONZALES 03/29/18 Ondansetron (Ondansetron Odt) 4 Mg Tab.rapdis 4 MG PO Q6H PRN for NAUSEA/VOMITING, #8 TAB 0 Refills Prov: RIGOBERTO GONZALES 03/29/18 Work/School Note: Work Release Form Date Seen in the Emergency Department: Mar 29, 2018 Return to Work: Mar 31, 2018 Restrictions: No Restrictions Copy Copies To 1: JAMILA HARRY TITUS J Mar 29, 2018 18:28
[2018-03-29] MEDS ORDERED: fentaNYL INJECTION 100 MCG/2 ML AMP IVP ONE (18:30)
[2018-03-29] MEDS ORDERED: ONDANSETRON 4 MG/2 ML (SDV) Z0FRAN IVP ONE (18:30)
[2018-03-29] MEDS: NS IV 1000 ML 1,000 ML IV SCH ×2 (18:35→19:50)
[2018-03-29 18:40] LABS: ALANINE AMINOTRANSFERASE 31 U/L (0-55); ALKALINE PHOSPHATASE 76 U/L (40-136); BILIRUBIN,TOTAL 0.5 MG/DL (0.1-1.0); BUN/CREATININE RATIO 12; CALCIUM 9.2 MG/DL (8.5-10.1); CARBON DIOXIDE 19 MMOL/L (21-32); CHLORIDE 101 MMOL/L (98-107); CREATININE SERUM 0.95 MG/DL (0.60-1.30); GFR ESTIMATED > 60; LIPASE 15 U/L (8-78); POTASSIUM 4.3 MMOL/L (3.6-5.0); SODIUM 132 MMOL/L (135-145); TOTAL PROTEIN 7.1 GM/DL (6.4-8.2)
[2018-03-29 18:44] LABS: GLUCOSE 539 MG/DL (70-105)
[2018-03-29] MEDS ORDERED: IOHEXOL 350 MG/ML 100 ML (OMNIPAQUE 350) VIAL IV ONE (18:45)
[2018-03-29] MEDS ORDERED: NS 250 ML (IVPB) BAG IV ONE (18:45)
[2018-03-29 19:25] LABS: BILIRUBIN,URINE NEGATIVE (NEGATIVE); CLARITY,URINE CLEAR; COLOR,URINE YELLOW; GLUCOSE, URINE (UA) 4+ (NEGATIVE); KETONES,URINE NEGATIVE (NEGATIVE); LEUKOCYTE ESTERASE ,URINE NEGATIVE (NEGATIVE); NITRITE,URINE NEGATIVE (NEGATIVE); PH,URINE 5 (5-9); PROTEIN,URINE NEGATIVE (NEGATIVE); UROBILINOGEN,URINE NORMAL (NORMAL)
[2018-03-29 19:35] LABS: BACTERIA,URINE NEGATIVE /HPF; WBC,URINE RARE /HPF
--- NOTE | 2018-03-29 19:42 | Diagnostic Imaging Report ---
PROCEDURE: CT abdomen and pelvis with contrast. TECHNIQUE: Multiple contiguous axial images were obtained through the abdomen and pelvis after administration of intravenous contrast. INDICATION: Left lower quadrant pain with nausea, vomiting and diarrhea. Comparison is made with prior CT from 08/26/2017. The lung bases are clear. No discrete liver mass is identified. The gallbladder is contracted. The pancreas and spleen are unremarkable. No adrenal mass is identified. Small nonobstructing calculus lower pole right kidney is again seen. Extrarenal pelvis on the right is again noted. No definite ureteral calculi are detected. The aorta is nonaneurysmal. Small and large bowel loops are normal caliber. The appendix is visualized and unremarkable. No inflammatory changes in the left lower quadrant are identified. No fluid collection or free air seen. The bladder is unremarkable. IMPRESSION: 1. A tiny nonobstructing right renal calculus. CT of the abdomen and pelvis is otherwise unremarkable. No acute feature is detected. Dictated by: Dictated on workstation # [id number]
[2018-03-29 19:45] LABS: AMPHETAMINE SCREEN, URINE NEGATIVE (NEGATIVE); BARBITURATE SCREEN URINE NEGATIVE (NEGATIVE); BENZODIAZEPINES SCREEN URINE NEGATIVE (NEGATIVE); CANNABINOID SCREEN, URINE NEGATIVE (NEGATIVE); COCAINE SCREEN URINE NEGATIVE (NEGATIVE); METHADONE STAT NEGATIVE (NEGATIVE); METHAMPHETAMINE SCREEN URINE S NEGATIVE (NEGATIVE); OPIATE SCREEN URINE NEGATIVE (NEGATIVE); OXYCODONE STAT NEGATIVE (NEGATIVE); PROPOXYPHENE STAT NEGATIVE (NEGATIVE); TRICYCLIC ANTIDEPRESSANTS SCRE NEGATIVE (NEGATIVE)
[2018-03-29] MEDS ORDERED: inSUlin (REGULAR) HUMAN 1 UNIT/0.01 ML (CHARGE PER UNIT) SC ONE (20:15)
[2018-03-29] MEDS ORDERED: INSU100V5 SQ (20:26)
[2018-03-29] MEDS ORDERED: SYRI-820 MC (20:26)
[2018-03-29] MEDS ORDERED: ONDA4TAB11 PO (20:26)
[2018-03-29 21:00] VITALS: BP 123/73
== END 2018-03-29 21:00 | disposition home or self-care (01) ==
LOC: EDUNIT# 17:15 → ER 17:17
DX: A08.4 Viral intestinal infection, unspecified (principal); E11.65 Type 2 diabetes mellitus with hyperglycemia; J45.909 Unspecified asthma, uncomplicated; F32.9 Major depressive disorder, single episode, unspecified; F17.210 Nicotine dependence, cigarettes, uncomplicated; Z88.0 Allergy status to penicillin
CPT/HCPCS: 36415; 74177; 80053; 80306; 81000; 83690; 83735; 84478; 85025

== ENCOUNTER 2018-12-27 19:13 | Emergency (ER) | payer SELFPAY ==
[~2018-12-27] VITALS: Ht 193 cm; Wt 113.4 kg
[~2018-12-27 19:13] MED LIST changes: +INSU100V5 SQ; +ONDA4TAB11 PO; +SYRI-820 MC
[2018-12-27] MEDS ORDERED: GLYB2.5T4 PO (19:25)
--- NOTE | 2018-12-27 19:27 | ED Abdominal Pain ---
General Stated Complaint: ABD PAIN Source of Information: Patient Exam Limitations: No Limitations History of Present Illness Date Seen by Provider: Dec 27, 2018 Time Seen by Provider: 19:24 Initial Comments To ER per private vehicle from home with reports of left lower quadrant abdominal pain onset this morning. No dysuria that he has had urinary frequency for a few days now. No constipation or diarrhea. No fever chills nausea or vomiting. He is a type II diabetic managed with glyburide and metformin. He has not been able to find his glucometer for several months. Primary care is to call [facility]. Denies testicular or penile pain Timing/Duration: 12 Hours Severity/Quality: Moderate (rates pain 7 out of 10) Location: LLQ Associated Symptoms: No Fever/Chills, No Nausea/Vomiting Allergies and Home Medications Allergies Coded Allergies: Penicillins (Unverified Allergy, Mild, 01/29/09) Home Medications Metformin HCl 1,000 Mg Tablet, 1,000 MG PO BID, (Reported) Patient Home Medication List Home Medication List Reviewed: Yes Review of Systems Review of Systems Constitutional: see HPI EENTM: No Symptoms Reported Respiratory: No Symptoms Reported Cardiovascular: No Symptoms Reported Gastrointestinal: See HPI, Abdominal Pain Genitourinary: No Symptoms Reported Musculoskeletal: no symptoms reported Skin: no symptoms reported Psychiatric/Neurological: No Symptoms Reported Endocrine: No Symptoms Reported Hematologic/Lymphatic: No Symptoms Reported Past Bglfcgg-Uwamsx-Hhnvgb Hx Patient Social History Type Used: Cigarettes 2nd Hand Smoke Exposure: Yes Recent Foreign Travel: No Contact w/Someone Who Travel: No Recent Hopitalizations: No Seasonal Allergies Seasonal Allergies: No Past Medical History Surgeries: No Asthma Cardiac: No Neurological: Yes (BELLS PALSY) Genitourinary: No Gastrointestinal: No Musculoskeletal: Yes Chronic Back Pain Endocrine: Yes Diabetes, Non-Insulin dep HEENT: No Cancer: No Psychosocial: Yes Depression Integumentary: No Blood Disorders: No Adverse Reaction/Blood Tranf: No Physical Exam Vital Signs Vital Signs - First Documented 12/27/18 19:17 Temp 98.1 Pulse 81 Resp 18 B/P (MAP) 125/80 (95) Pulse Ox 97 O2 Delivery Room Air Capillary Refill : Height/Weight/BMI Height: 6'4.00" Weight: 250lbs. oz. 113.132363sq; 42.60 BMI Method:Stated General Appearance: WD/WN, no apparent distress HEENT: PERRL/EOMI, normal ENT inspection Respiratory: no respiratory distress, no accessory muscle use Cardiovascular: regular rate, rhythm, no murmur Gastrointestinal: normal bowel sounds, soft, tenderness Extremities: normal range of motion, non-tender Neurologic/Psychiatric: alert, normal mood/affect, oriented x 3 Skin: normal color, warm/dry Progress/Results/Core Measures Results/Orders Lab Results Laboratory Tests Test 12/27/18 19:20 12/27/18 19:23 12/27/18 19:35 Range/Units White Blood Count 9.0 4.3-11.0 10^3/uL Red Blood Count 5.41 4.35-5.85 10^6/uL Hemoglobin 16.7 13.3-17.7 G/DL Hematocrit 45 40-54 % Mean Corpuscular Volume 84 80-99 FL Mean Corpuscular Hemoglobin 31 25-34 PG Mean Corpuscular Hemoglobin Concent 37 H 32-36 G/DL Red Cell Distribution Width 13.7 10.0-14.5 % Platelet Count 209 130-400 10^3/uL Mean Platelet Volume 11.3 H 7.4-10.4 FL Neutrophils (%) (Auto) 58 42-75 % Lymphocytes (%) (Auto) 31 12-44 % Monocytes (%) (Auto) 9 0-12 % Eosinophils (%) (Auto) 2 0-10 % Basophils (%) (Auto) 1 0-10 % Neutrophils # (Auto) 5.2 1.8-7.8 X 10^3 Lymphocytes # (Auto) 2.8 1.0-4.0 X 10^3 Monocytes # (Auto) 0.8 0.0-1.0 X 10^3 Eosinophils # (Auto) 0.2 0.0-0.3 10^3/uL Basophils # (Auto) 0.1 0.0-0.1 10^3/uL Sodium Level 135 135-145 MMOL/L Potassium Level 3.4 L 3.6-5.0 MMOL/L Chloride Level 102 98-107 MMOL/L Carbon Dioxide Level 19 L 21-32 MMOL/L Anion Gap 14 5-14 MMOL/L Blood Urea Nitrogen 7 7-18 MG/DL Creatinine 0.88 0.60-1.30 MG/DL Estimat Glomerular Filtration Rate > 60 BUN/Creatinine Ratio 8 Glucose Level 367 H 70-105 MG/DL Calcium Level 9.6 8.5-10.1 MG/DL Corrected Calcium 9.3 8.5-10.1 MG/DL Total Bilirubin 0.5 0.1-1.0 MG/DL Aspartate Amino Transf (AST/SGOT) 14 5-34 U/L Alanine Aminotransferase (ALT/SGPT) 23 0-55 U/L Alkaline Phosphatase 77 40-136 U/L Total Protein 7.4 6.4-8.2 GM/DL Albumin 4.4 3.2-4.5 GM/DL Beta-Hydroxybutyrate (Chem panel) 0.47 H 0.00-0.27 MMOL/L Glucometer 339 H 70-110 MG/DL Urine Color YELLOW Urine Clarity CLEAR Urine pH 6 5-9 Urine Specific [place] 1.015 L 1.016-1.022 Urine Protein 1+ H NEGATIVE Urine Glucose (UA) 4+ H NEGATIVE Urine Ketones 2+ H NEGATIVE Urine Nitrite POSITIVE H NEGATIVE Urine Bilirubin NEGATIVE NEGATIVE Urine Urobilinogen NORMAL NORMAL MG/DL Urine Leukocyte Esterase NEGATIVE NEGATIVE Urine RBC (Auto) NEGATIVE NEGATIVE Urine RBC NONE /HPF Urine WBC RARE /HPF Urine Crystals NONE /LPF Urine Bacteria TRACE /HPF Urine Casts NONE /LPF Urine Mucus NEGATIVE /LPF Urine Culture Indicated NO My Orders Orders - WALTER NAVARRETE APRN Cbc With Automated Diff (12/27/18 19:22) Comprehensive Metabolic Panel (12/27/18 19:22) Beta Hydroxybutyrate (12/27/18 19:22) Ua Culture If Indicated (12/27/18 19:22) Ed Iv/Invasive Line Start (12/27/18 19:22) Ct Abd/Pelvis Wo(Kidney Stone) (12/27/18 19:22) Accucheck Stat ONCE (12/27/18 19:22) Lactated Ringers (Lr 1000 Ml Iv Solution (12/27/18 19:30) Ketorolac Injection (Toradol Injection) (12/27/18 19:30) Fentanyl Injection (Sublimaze Injection (12/27/18 19:30) Levofloxacin Tablet (Levaquin Tablet) (12/27/18 20:30) Lactated Ringers (Lr 1000 Ml Iv Solution (12/27/18 20:30) Urine Culture (12/27/18 20:27) Medications Given in ED Current Medications Medications Dose Ordered Sig/Nelli Route Start Time Stop Time Status Last Admin Dose Admin Fentanyl Citrate 50 mcg ONCE ONCE IVP 12/27/18 19:30 12/27/18 19:31 DC 12/27/18 19:33 50 MCG Ketorolac Tromethamine 15 mg ONCE ONCE IVP 12/27/18 19:30 12/27/18 19:31 DC 12/27/18 19:33 15 MG Vital Signs/I&O 12/27/18 19:17 Temp 98.1 Pulse 81 Resp 18 B/P (MAP) 125/80 (95) Pulse Ox 97 O2 Delivery Room Air Departure Communication (Admissions) NAME: TRIXIE CHRISTY [facility] REC#: [id number] PT STATUS: REG ER : 1980 PHYSICIAN: WALTER NAVARRETE HOUSE WORKER ADMIT DATE: 12/27/18/ER Draft Date of Exam:12/27/18 CT ABD/PELVIS WO(KIDNEY STONE) PROCEDURE: CT urinary tract, rule out kidney stone. TECHNIQUE: Multiple contiguous axial images were obtained through the abdomen and pelvis without the use of intravenous contrast. Auto Exposure Controls were utilized during the CT exam to meet ALARA standards for radiation dose reduction. INDICATION: Left abdominal pain. COMPARISON: Multiple priors, most recent performed on 03/29/2018. FINDINGS: Absence of intravenous contrast decreases sensitivity for detection of lymphadenopathy, focal lesions and vascular pathology. The lung bases are clear and the visualized heart is normal in size. There is diffuse low-attenuation of the hepatic parenchyma, with focal areas of sparing adjacent to the gallbladder fossa, likely representing hepatic steatosis. No focal hepatic lesion is demonstrated. The spleen, pancreas, gallbladder, and adrenal glands are unremarkable. The kidneys are symmetric in size. There is a 4 mm calculus in the lower pole collecting system of the right kidney, also seen previously. There is unchanged fullness in the collecting system and extrarenal pelvis on the right, without jocelin hydronephrosis noted. There is no renal calculus or hydronephrosis on the left. The visualized ureters are normal. The stomach and duodenum are normal. The small bowel and colon are normal in course and caliber, without evidence of wall thickening or obstruction. The appendix is normal. No pneumoperitoneum, abdominal free fluid, or loculated collection. No lymphadenopathy is appreciated. There is minimal atherosclerotic calcification involving the abdominal aorta, without aneurysmal dilatation. The bladder is normal. The prostate gland is not enlarged. The abdominal wall is unremarkable. No acute osseous abnormality is identified. IMPRESSION: Nonobstructing right lower pole renal calculus. No acute abdominal or pelvic pathology is identified. There has been no significant change from prior. Hepatic steatosis. Dictated on workstation # [id number] Dict: 12/27/181939 Trans: 12/27/181947 [facility] [id number] Interpreted by: DANIELLA MEJIA DO Electronically signed by: Impression Primary Impression: LLQ abdominal pain Additional Impressions: Urinary tract infection Qualified Codes: N30.00 - Acute cystitis without hematuria Hyperglycemia Disposition: HOME, SELF-CARE Condition: Stable Departure-Patient Inst. Decision time for Depature: 20:33 Referrals: [facility] (PCP/Family) Primary Care Physician Patient Instructions: Urinary Tract Infection, Adult (DC) Add. Discharge Instructions: 1. Medication as directed 2. Call your primary care provider next week for recheck. Return to ER for any worsening. Scripts Cefuroxime Axetil (Cefuroxime) 250 Mg Tablet 250 MG PO BID, #10 TAB Prov: WALTER NAVARRETE HOUSE WORKER 12/27/18 WALTER NAVARRETE HOUSE WORKER Dec 27, 2018 19:27
[2018-12-27 19:29] LABS: BASOPHILS # (AUTO) 0.1 10^3/uL (0.0-0.1); BASOPHILS % (AUTO) 1 % (0-10); EOSINOPHILS # (AUTO) 0.2 10^3/uL (0.0-0.3); EOSINOPHILS % (AUTO) 2 % (0-10); HEMATOCRIT 45 % (40-54); HEMOGLOBIN 16.7 G/DL (13.3-17.7); LYMPHOCYTES # (AUTO) 2.8 X 10^3 (1.0-4.0); LYMPHOCYTES % (AUTO) 31 % (12-44); MEAN CORPUSCULAR HEMOGLOBIN 31 PG (25-34); MEAN CORPUSCULAR HGB CONC 37 G/DL (32-36); MEAN CORPUSCULAR VOLUME 84 FL (80-99); MEAN PLATELET VOLUME 11.3 FL (7.4-10.4); MONOCYTES # (AUTO) 0.8 X 10^3 (0.0-1.0); MONOCYTES % (AUTO) 9 % (0-12); NEUTROPHILS # (AUTO) 5.2 X 10^3 (1.8-7.8); NEUTROPHILS % (AUTO) 58 % (42-75); PLATELET COUNT 209 10^3/uL (130-400); RED CELL DISTRIBUTION WIDTH 13.7 % (10.0-14.5)
[2018-12-27] MEDS ORDERED: fentaNYL INJECTION 100 MCG/2 ML AMP IVP ONE (19:30)
[2018-12-27] MEDS ORDERED: KETOROLAC 30 MG/ML VIAL IVP ONE (19:30)
[2018-12-27] MEDS ORDERED: LACTATED RINGERS 1,000 ML IV SCH (19:30)
[2018-12-27 19:43] LABS: BILIRUBIN,URINE NEGATIVE (NEGATIVE); CLARITY,URINE CLEAR; COLOR,URINE YELLOW; GLUCOSE, URINE (UA) 4+ (NEGATIVE); KETONES,URINE 2+ (NEGATIVE); LEUKOCYTE ESTERASE ,URINE NEGATIVE (NEGATIVE); NITRITE,URINE POSITIVE (NEGATIVE); PH,URINE 6 (5-9); PROTEIN,URINE 1+ (NEGATIVE); UROBILINOGEN,URINE NORMAL (NORMAL)
[2018-12-27 19:48] LABS: ALANINE AMINOTRANSFERASE 23 U/L (0-55); ALBUMIN 4.4 GM/DL (3.2-4.5); BILIRUBIN,TOTAL 0.5 MG/DL (0.1-1.0); BUN/CREATININE RATIO 8; CALCIUM 9.6 MG/DL (8.5-10.1); CARBON DIOXIDE 19 MMOL/L (21-32); CREATININE SERUM 0.88 MG/DL (0.60-1.30); GFR ESTIMATED > 60; GLUCOSE 367 MG/DL (70-105); TOTAL PROTEIN 7.4 GM/DL (6.4-8.2)
--- NOTE | 2018-12-27 19:49 | Diagnostic Imaging Report ---
PROCEDURE: CT urinary tract, rule out kidney stone. TECHNIQUE: Multiple contiguous axial images were obtained through the abdomen and pelvis without the use of intravenous contrast. Auto Exposure Controls were utilized during the CT exam to meet ALARA standards for radiation dose reduction. INDICATION: Left abdominal pain. COMPARISON: Multiple priors, most recent performed on 03/29/2018. FINDINGS: Absence of intravenous contrast decreases sensitivity for detection of lymphadenopathy, focal lesions and vascular pathology. The lung bases are clear and the visualized heart is normal in size. There is diffuse low-attenuation of the hepatic parenchyma, with focal areas of sparing adjacent to the gallbladder fossa, likely representing hepatic steatosis. No focal hepatic lesion is demonstrated. The spleen, pancreas, gallbladder, and adrenal glands are unremarkable. The kidneys are symmetric in size. There is a 4 mm calculus in the lower pole collecting system of the right kidney, also seen previously. There is unchanged fullness in the collecting system and extrarenal pelvis on the right, without jocelin hydronephrosis noted. There is no renal calculus or hydronephrosis on the left. The visualized ureters are normal. The stomach and duodenum are normal. The small bowel and colon are normal in course and caliber, without evidence of wall thickening or obstruction. The appendix is normal. No pneumoperitoneum, abdominal free fluid, or loculated collection. No lymphadenopathy is appreciated. There is minimal atherosclerotic calcification involving the abdominal aorta, without aneurysmal dilatation. The bladder is normal. The prostate gland is not enlarged. The abdominal wall is unremarkable. No acute osseous abnormality is identified. IMPRESSION: Nonobstructing right lower pole renal calculus. No acute abdominal or pelvic pathology is identified. There has been no significant change from prior. Hepatic steatosis. Dictated by: Dictated on workstation # [id number]
[2018-12-27 20:02] LABS: ALKALINE PHOSPHATASE 77 U/L (40-136); CHLORIDE 102 MMOL/L (98-107); POTASSIUM 3.4 MMOL/L (3.6-5.0); SODIUM 135 MMOL/L (135-145)
[2018-12-27 20:20] LABS: BACTERIA,URINE TRACE /HPF; WBC,URINE RARE /HPF
[2018-12-27] MEDS ORDERED: LEVOFLOXACIN 500 MG TAB (LEVAQUIN) PO ONE (20:30)
[2018-12-27] MEDS: LACTATED RINGERS 1,000 ML IV SCH ×2 (20:34→20:40)
[2018-12-27] MEDS ORDERED: CEFU250T80 PO (20:35)
[2018-12-27 21:11] VITALS: BP 100/51
== END 2018-12-27 21:16 | disposition home or self-care (01) ==
LOC: EDUNIT# 19:13 → ER 19:14
DX: N39.0 Urinary tract infection, site not specified (principal); E11.65 Type 2 diabetes mellitus with hyperglycemia; J45.909 Unspecified asthma, uncomplicated; F32.9 Major depressive disorder, single episode, unspecified; Z79.84 Long term (current) use of oral hypoglycemic drugs; Z88.0 Allergy status to penicillin; Z77.22 Contact with and (suspected) exposure to environmental tobacco smoke (acute) (chronic)
CPT/HCPCS: 36415; 74176; 80053; 81000; 82010; 82962; 85025; 87088; 96361; 96374; 96375

== ENCOUNTER 2019-01-06 18:27 | Emergency (ER) | payer SELFPAY ==
[~2019-01-06] VITALS: Ht 193 cm; Wt 113.4 kg
[~2019-01-06 18:27] MED LIST changes: +CEFU250T80 PO; +GLYB2.5T4 PO
--- NOTE | 2019-01-06 18:43 | NUR ---
pt here by self alert gcs 15. pt c/o dental pain upper x 1 day getting worse. pain rating 8. says " abscess". right zygoma area slightly red and with moderate swelling. no acute sighns of dypsnea noted. done avinash pt at 1848.
--- NOTE | 2019-01-06 19:04 | ED EENT ---
History of Present Illness General Chief Complaint: Dental Problems/Pain Stated Complaint: DENTAL PAIN Nursing Triage Note: dental pain x 1 day History of Present Illness Date Seen by Provider: Jan 06, 2019 Time Seen by Provider: 18:45 Initial Comments 38-year-old male presents for 24 hours of dental pain. He's been taking Tylenol and ibuprofen intermittently with no assistance in his pain. He was treated here approximately one week ago and prescribed Ceftin for UTI and renal calculi, he did not take the antibiotic. He has a long-standing history of dental problems, however he is not been treated by [facility] because his diabetes has not been well-controlled. He recently resumed taking his diabetes medicine as followed by Charlie Corado APRN. Timing/Duration: yesterday Location: mouth, dental Prearrival Treatment: over the counter meds Associated Symptoms: denies symptoms Allergies and Home Medications Allergies Coded Allergies: Penicillins (Unverified Allergy, Mild, 01/29/09) Home Medications Cefuroxime Axetil 250 Mg Tablet, 250 MG PO BID Prescribed by: WALTER NAVARRETE on 12/27/182034 Cephalexin 500 Mg Tablet, 500 MG PO QID Prescribed by: SARI MCKEON on 01/06/191904 Metformin HCl 1,000 Mg Tablet, 1,000 MG PO BID, (Reported) Nystatin 100,000 Unit/1 Ml Oral.susp, 4 ML PO QID Swish medicine and swallow Prescribed by: SARI MCKEON on 01/06/191904 Tramadol HCl 50 Mg Tablet, 50 MG PO Q8H PRN for PAIN Prescribed by: SARI MCKENO on 01/06/191904 Patient Home Medication List Home Medication List Reviewed: Yes Review of Systems Review of Systems Constitutional: no symptoms reported, see HPI Mouth: see HPI, pain, swelling All Other Systems Reviewed Negative Unless Noted: Yes Past Jysbfnu-Egqejz-Gkzpvj Hx Past Med/Social Hx: Reviewed Nursing Past Med/Soc Hx Patient Social History Alcohol Use: Denies Use Recreational Drug Use: No Smoking Status: Current Everyday Smoker Type Used: Cigarettes 2nd Hand Smoke Exposure: Yes Recent Foreign Travel: No Contact w/Someone Who Travel: No Recent Infectious Disease Expo: No Recent Hopitalizations: No Physical Abuse: No Sexual Abuse: No Immunizations Up To Date Tetanus Booster (TDap): Unknown Seasonal Allergies Seasonal Allergies: No Past Medical History Surgeries: No Respiratory: Yes Asthma Cardiac: No Neurological: Yes (BELLS PALSY) Genitourinary: No Gastrointestinal: No Musculoskeletal: Yes Chronic Back Pain Endocrine: Yes Diabetes, Non-Insulin dep HEENT: No Cancer: No Psychosocial: Yes Depression Integumentary: No Blood Disorders: No Adverse Reaction/Blood Tranf: No Physical Exam Vital Signs Vital Signs - First Documented 01/06/19 18:43 Temp 97.7 Pulse 80 Resp 12 B/P (MAP) 113/86 (95) Pulse Ox 98 O2 Delivery Room Air Height, Weight, BMI Height: 6'4.00" Weight: 250lbs. oz. 113.218245xc; 42.60 BMI Method:Stated General Appearance: WD/WN, no apparent distress Eyes: bilateral eye normal inspection, bilateral eye PERRL, bilateral eye EOMI Ears: bilateral ear auricle normal, bilateral ear canal normal, bilateral ear TM normal Nose: normal inspection; No discharge Mouth/Throat: dental tenderness (throughout upper and lower, but increased pain in the right upper), mandibular swelling, maxillary swelling, pharynx swelling; No tonsillar exudate, No uvula swelling; other (thrush present on the hard and soft palate as well as posterior pharynx) Neck: full range of motion, supple, normal inspection, lymphadenopathy (R), lymphadenopathy (L) Cardiovascular: normal peripheral pulses, regular rate, rhythm Respiratory: chest non-tender, lungs clear, normal breath sounds Neurologic/Psychiatric: no motor/sensory deficits, alert, normal mood/affect, oriented x 3 Skin: normal color, warm/dry Progress/Results/Core Measures Results/Orders My Orders Orders - SARI MCKEON Tramadol Tablet (Ultram Tablet) (01/06/19 19:15) Medications Given in ED Current Medications Medications Dose Ordered Sig/Nelli Route Start Time Stop Time Status Last Admin Dose Admin Tramadol HCl 50 mg ONCE ONCE PO 01/06/19 19:15 01/06/19 19:16 DC 01/06/19 19:29 50 MG Vital Signs/I&O 01/06/19 18:43 Temp 97.7 Pulse 80 Resp 12 B/P (MAP) 113/86 (95) Pulse Ox 98 O2 Delivery Room Air Blood Pressure Mean: 95 Departure Impression Primary Impression: Pain, dental Additional Impressions: Chronic dental caries extending to dentine Thrush, oral Disposition: 01 HOME, SELF-CARE Condition: Improved Departure-Patient Inst. Decision time for Depature: 18:00 Referrals: [facility] (PCP/Family) Primary Care Physician Patient Instructions: Tooth Decay, Adult (DC), Dental Pain (DC), Thrush (DC) Add. Discharge Instructions: Take medication as prescribed. Apply topical oral pain relief (oragel or similar options) Follow-up with your primary care provider or the walk-in clinic at [facility]. Alternate between ibuprofen 600 mg and Tylenol 650 g every 4 hours for pain. If your pain is not managed by above, he may take Ultram 1 tablet every 8 hours. Schedule appt with a dentist. Return to emergency department for new, urgent health care needs. All discharge instructions reviewed with patient and/or family. Voiced understanding. Scripts Nystatin (Nystatin) 100,000 Unit/1 Ml Oral.susp 4 ML PO QID for 7 Days, #140 ML 0 Refills Swish medicine and swallow Prov: SARI MCKEON 01/06/19 Tramadol HCl (Tramadol HCl) 50 Mg Tablet 50 MG PO Q8H PRN for PAIN, #15 TAB 0 Refills Prov: SARI MCKEON 01/06/19 Cephalexin (Cephalexin) 500 Mg Tablet 500 MG PO QID, #20 TAB 0 Refills Prov: SARI MCKEON 01/06/19 SARI MCKEON Jan 06, 2019 19:04
[2019-01-06] MEDS ORDERED: TRAM50TA2 PO (19:05)
[2019-01-06] MEDS ORDERED: NYST1000 PO (19:05)
[2019-01-06] MEDS ORDERED: CEPH500T PO (19:05)
[2019-01-06 19:29] VITALS: BP 113/86
--- NOTE | 2019-01-06 19:29 | NUR ---
D/C INSTRCUTIONS TO PT. TOLD TO READ ALL PAPERS. SCRIPT PAPER AND FAX. PT LEFT AMBULATORY BY SELF. PT KNOWS F/U. I WENT OVER THE HANDTYPED BY INFORMATION ON THE CHART. PT HAD NO IV. PT REQUESTED WORK RELEASE. DENIES BY
== END 2019-01-06 19:29 | disposition home or self-care (01) ==
LOC: EDUNIT# 18:27 → ER 18:28
DX: K02.9 Dental caries, unspecified (principal); B37.0 Candidal stomatitis; E11.9 Type 2 diabetes mellitus without complications; G51.0 Bell's palsy; J45.909 Unspecified asthma, uncomplicated; F32.9 Major depressive disorder, single episode, unspecified; F17.210 Nicotine dependence, cigarettes, uncomplicated; Z88.0 Allergy status to penicillin; Z79.84 Long term (current) use of oral hypoglycemic drugs
CPT/HCPCS: 99283

== ENCOUNTER 2019-03-10 00:42 | Emergency (ER) | payer SELFPAY ==
[~2019-03-10] VITALS: Ht 193 cm; Wt 118.2 kg
[~2019-03-10 00:42] MED LIST changes: +CEPH500T PO; +NYST1000 PO; +TRAM50TA2 PO
[2019-03-10] MEDS ORDERED: CLINDAMYCIN 150 MG (CLEOCIN) CAP PO ONE (02:00)
[2019-03-10] MEDS ORDERED: KETOROLAC 30 MG/ML VIAL IM ONE (02:00)
[2019-03-10] MEDS ORDERED: TRAM-42 PO (02:03)
[2019-03-10] MEDS ORDERED: CLIN300C11 PO (02:03)
--- NOTE | 2019-03-10 02:03 | ED General ---
General Chief Complaint: Dental Problems/Pain Stated Complaint: DENTAL PAIN Nursing Triage Note: C/O DENTAL PAIN ON LEFT SIDE X 3 DAYS Nursing Sepsis Screen: No Definite Risk Source of Information: Patient Exam Limitations: No Limitations History of Present Illness Date Seen by Provider: Mar 10, 2019 Time Seen by Provider: 00:55 Initial Comments This 39-year-old man presents to the emergency room with complaints of right- sided lower dental pain for the past 3 days. He is working on establishing with [facility] dental but does not yet have an appointment. He is afebrile. Patient is also noted to be hyperglycemic. He has not been taking his medications and has been drinking regular soda. Allergies and Home Medications Allergies Coded Allergies: Penicillins (Unverified Allergy, Mild, 01/29/09) Home Medications Cefuroxime Axetil 250 Mg Tablet, 250 MG PO BID Prescribed by: WALTER NAVARRETE on 12/27/182034 Cephalexin 500 Mg Tablet, 500 MG PO QID Prescribed by: SARI MCKEON on 01/06/191904 Clindamycin HCl 300 Mg Capsule, 300 MG PO QID Prescribed by: CHER VIGIL on 03/10/19202 Metformin HCl 1,000 Mg Tablet, 1,000 MG PO BID, (Reported) Nystatin 100,000 Unit/1 Ml Oral.susp, 4 ML PO QID Swish medicine and swallow Prescribed by: SARI MCKEON on 01/06/191904 Tramadol HCl 50 Mg Tablet, 50 MG PO Q8H PRN for PAIN Prescribed by: SARI MCKEON on 01/06/191904 Tramadol HCl 50 Mg Tablet, 50 MG PO QID Prescribed by: CHER VIGIL on 03/10/19202 Patient Home Medication List Home Medication List Reviewed: Yes Review of Systems Review of Systems Constitutional: no symptoms reported EENTM: see HPI Respiratory: no symptoms reported Cardiovascular: no symptoms reported Gastrointestinal: no symptoms reported Genitourinary: no symptoms reported Musculoskeletal: no symptoms reported Skin: no symptoms reported Psychiatric/Neurological: No Symptoms Reported Hematologic/Lymphatic: No Symptoms Reported Past Ohnzbup-Ozxwvu-Djfeii Hx Past Med/Social Hx: Reviewed Nursing Past Med/Soc Hx Patient Social History Alcohol Use: Denies Use Recreational Drug Use: Yes (1 PPD) Drug of Choice: "WEED" Type Used: Cigarettes 2nd Hand Smoke Exposure: Yes Recent Foreign Travel: No Contact w/Someone Who Travel: No Recent Infectious Disease Expo: No Recent Hopitalizations: No Physical Abuse: No Sexual Abuse: No Mistreated: No Fear: No Immunizations Up To Date Tetanus Booster (TDap): Unknown Seasonal Allergies Seasonal Allergies: No Past Medical History Surgeries: No Respiratory: Yes Asthma Cardiac: No Neurological: Yes (BELLS PALSY) Genitourinary: No Gastrointestinal: No Musculoskeletal: Yes Chronic Back Pain Endocrine: Yes Diabetes, Non-Insulin dep HEENT: No Cancer: No Psychosocial: Yes Depression Integumentary: No Blood Disorders: No Adverse Reaction/Blood Tranf: No Physical Exam Vital Signs Vital Signs - First Documented 03/10/19 00:55 Temp 36.4 Pulse 73 Resp 16 B/P (MAP) 137/92 (107) Pulse Ox 96 Capillary Refill : Less Than 3 Seconds Height, Weight, BMI Height: 6'4.00" Weight: 250lbs. oz. 113.644077nl; 31.00 BMI Method:Stated General Appearance: No Apparent Distress, WD/WN HEENT: PERRL/EOMI, Normal ENT Inspection, Other (Extensive dental decay with gingivitis and caries. Inflammation and tenderness noted along the gingiva of the right lower and upper teeth. There was a tiny abscess on the right upper gums that easily ruptured when palpated.) Neck: Normal Inspection Respiratory: Lungs Clear, Normal Breath Sounds, No Accessory Muscle Use Cardiovascular: Regular Rate, Rhythm, No Murmur Extremity: Normal Inspection Neurologic/Psychiatric: Alert, Oriented x3, No Motor/Sensory Deficits, Normal Mood/Affect Skin: Normal Color, Warm/Dry Progress/Results/Core Measures Suspected Sepsis Recent Fever Within 48 Hours: No Infection Criteria Present: None New/Unexplained Altered Menta: No Sepsis Screen: No Definite Risk SIRS Temperature: Pulse: 73 Respiratory Rate: 16 Blood Pressure 137 /92 Mean: 107 Results/Orders Lab Results Laboratory Tests Test 03/10/19 01:24 Range/Units Glucometer 401 *H 70-110 MG/DL My Orders Orders - CHER JACK MD Tramadol Tablet (Ultram Tablet) (03/10/19 02:00) Clindamycin Capsule (Cleocin Capsule) (03/10/19 02:00) Ketorolac Injection (Toradol Injection) (03/10/19 02:00) Medications Given in ED Current Medications Medications Dose Ordered Sig/Nelli Route Start Time Stop Time Status Last Admin Dose Admin Clindamycin HCl 450 mg ONCE ONCE PO 03/10/19 02:00 03/10/19 02:01 DC 03/10/19 02:00 450 MG Ketorolac Tromethamine 30 mg ONCE ONCE IM 03/10/19 02:00 03/10/19 02:01 DC 03/10/19 02:00 30 MG Tramadol HCl 50 mg ONCE ONCE PO 03/10/19 02:00 03/10/19 02:01 DC 03/10/19 02:00 50 MG Vital Signs/I&O 03/10/19 03/10/19 00:55 02:09 Temp 36.4 Pulse 73 78 Resp 16 20 B/P (MAP) 137/92 (107) 128/87 (107) Pulse Ox 96 95 Capillary Refill : Less Than 3 Seconds Blood Pressure Mean: 107 Point of Care Testing Finger Stick Blood Glucose: 401 Blood Glucose Action Taken: rn notified Progress Note : Progress Note Patient was given a Toradol injection and Ultram for pain. Antibiotic therapy was started with clindamycin. Patient has a penicillin allergy. Patient was strongly advised to control his carbohydrate intake, brush his teeth, take his medications, and generally care for himself better. Departure Impression Primary Impression: Dental decay Additional Impressions: Acute gingivitis Pain, dental Hyperglycemia Disposition: HOME, SELF-CARE Condition: Improved Departure-Patient Inst. Decision time for Depature: 01:55 Referrals: [facility] (PCP/Family) Primary Care Physician Patient Instructions: Tooth Decay, Adult (DC) Add. Discharge Instructions: Drink plenty of water. [place] your teeth gently with a soft bristle toothbrush twice daily. Rinse afterward with antiseptic mouthwash if tolerated. Complete your antibiotics as prescribed. Drink plenty of water. Do not drink sugary beverages. Eat a low carbohydrate low sugar diet. Take metformin as prescribed. Follow-up with a primary care provider soon as possible. Return to care if symptoms are worsening. For pain you may take ibuprofen up to 600 mg every 6 hours and Tylenol (acetaminophen) up to 1000 mg every 6 hours as needed. For more severe pain not controlled by dusr-ejx-meyryng medications you may use Ultram as prescribed. All discharge instructions reviewed with patient and/or family. Voiced understan funmilayo. Scripts Tramadol HCl (Ultram) 50 Mg Tablet 50 MG PO QID, #10 TAB Prov: CHER JACK MD 03/10/19 Clindamycin HCl (Clindamycin HCl) 300 Mg Capsule 300 MG PO QID, #40 CAP Prov: CHER JACK MD 03/10/19 CHER JACK MD Mar 10, 2019 02:03
[2019-03-10 02:09] VITALS: BP 128/87
== END 2019-03-10 02:10 | disposition home or self-care (01) ==
LOC: EDUNIT# 00:42 → ER 00:44
DX: K02.9 Dental caries, unspecified (principal); K05.00 Acute gingivitis, plaque induced; E11.65 Type 2 diabetes mellitus with hyperglycemia; J45.909 Unspecified asthma, uncomplicated; G51.0 Bell's palsy; F32.9 Major depressive disorder, single episode, unspecified; Z88.0 Allergy status to penicillin; Z79.84 Long term (current) use of oral hypoglycemic drugs
CPT/HCPCS: 82962

== ENCOUNTER 2019-11-11 10:27 | Emergency (ER) | payer SELFPAY ==
[~2019-11-11] VITALS: Ht 193 cm; Wt 105.0 kg
[~2019-11-11 10:27] MED LIST changes: +CLIN300C11 PO; +TRAM-42 PO; -TRAM50TA2 PO; +TRM50T PO
[2019-11-11 10:30] VITALS: BP 121/80
[2019-11-11] MEDS ORDERED: TRAM-42 PO (10:46)
[2019-11-11] MEDS ORDERED: CLIN300C11 PO (10:46)
--- NOTE | 2019-11-11 10:47 | ED EENT ---
History of Present Illness General Chief Complaint: Dental Problems/Pain Stated Complaint: DENTAL PAIN Nursing Triage Note: PT CO OF DENTAL PAIN IN L LOWER JAW STATES STARTE YESTERDAY Source: patient Exam Limitations: no limitations History of Present Illness Date Seen by Provider: Nov 11, 2019 Time Seen by Provider: 10:44 Initial Comments To ER with left lower dental pain began yesterday. Timing/Duration: abrupt Severity: moderate Location: dental Prearrival Treatment: no prearrival treatment Associated Symptoms: denies symptoms Allergies and Home Medications Allergies Coded Allergies: Penicillins (Unverified Allergy, Mild, 01/29/09) Home Medications Cefuroxime Axetil 250 Mg Tablet, 250 MG PO BID Prescribed by: WALTER NAVARRETE on 12/27/182034 Cephalexin 500 Mg Tablet, 500 MG PO QID Prescribed by: SARI MCKEON on 01/06/191904 Clindamycin HCl 300 Mg Capsule, 300 MG PO QID Prescribed by: CHER VIGIL on 03/10/19202 Metformin HCl 1,000 Mg Tablet, 1,000 MG PO BID, (Reported) Nystatin 100,000 Unit/1 Ml Oral.susp, 4 ML PO QID Swish medicine and swallow Prescribed by: SARI MCKEON on 01/06/191904 Tramadol HCl 50 Mg Tablet, 50 MG PO Q8H PRN for PAIN Prescribed by: SARI MCKEON on 01/06/191904 Tramadol HCl 50 Mg Tablet, 50 MG PO QID Prescribed by: CHER VIGIL on 03/10/19 020 Patient Home Medication List Home Medication List Reviewed: Yes Review of Systems Review of Systems Constitutional: see HPI Eyes: No Symptoms Reported Ears: No Symptoms Reported Nose: no symptoms reported Mouth: see HPI Throat: no symptoms reported Respiratory: no symptoms reported Cardiovascular: no symptoms reported Musculoskeletal: no symptoms reported Skin: no symptoms reported Past Pbmavmf-Muvacr-Jkajfl Hx Patient Social History Alcohol Use: Denies Use Recreational Drug Use: No Drug of Choice: "WEED" Smoking Status: Current Everyday Smoker Type Used: Cigarettes 2nd Hand Smoke Exposure: Yes Recent Foreign Travel: No Contact w/Someone Who Travel: No Recent Infectious Disease Expo: No Recent Hopitalizations: No Physical Abuse: No Sexual Abuse: No Immunizations Up To Date Tetanus Booster (TDap): Unknown Seasonal Allergies Seasonal Allergies: No Past Medical History Surgeries: No Respiratory: Yes Asthma Cardiac: No Neurological: Yes (BELLS PALSY) Genitourinary: No Gastrointestinal: No Musculoskeletal: Yes Chronic Back Pain Endocrine: Yes Diabetes, Non-Insulin dep HEENT: No Cancer: No Psychosocial: Yes Depression Integumentary: No Blood Disorders: No Adverse Reaction/Blood Tranf: No Physical Exam Vital Signs Vital Signs - First Documented 11/11/19 10:30 Temp 36.4 Pulse 82 Resp 18 B/P (MAP) 121/80 (94) Pulse Ox 99 Height, Weight, BMI Height: 6'4.00" Weight: 250lbs. oz. 113.816615ql; 28.00 BMI Method:Stated General Appearance: WD/WN, no apparent distress Eyes: bilateral eye normal inspection, bilateral eye PERRL, bilateral eye EOMI Ears: bilateral ear auricle normal, bilateral ear canal normal, bilateral ear TM normal Mouth/Throat: other (multiple fractured and carious teeth left mandible) Neck: non-tender, full range of motion Respiratory: no respiratory distress, no accessory muscle use Neurologic/Psychiatric: alert, normal mood/affect, oriented x 3 Skin: normal color, warm/dry Progress/Results/Core Measures Results/Orders Vital Signs/I&O 11/11/19 10:30 Temp 36.4 Pulse 82 Resp 18 B/P (MAP) 121/80 (94) Pulse Ox 99 Blood Pressure Mean: 94 Departure Impression Primary Impression: Pain, dental Disposition: 01 HOME, SELF-CARE Condition: Stable Departure-Patient Inst. Decision time for Depature: 10:45 Referrals: [facility] (PCP) Primary Care Physician HERIBERTO BRO (Family) Primary Care Physician Patient Instructions: Dental Pain (DC) Scripts Clindamycin HCl (Clindamycin HCl) 300 Mg Capsule 300 MG PO TID, #21 CAP Prov: WALTER NAVARRETE ORIENTAL RUG REPAIRER 11/11/19 WALTER NAVARRETE APRN Nov 11, 2019 10:47
== END 2019-11-11 11:10 | disposition home or self-care (01) ==
LOC: EDUNIT# 10:27 → ER 10:28
DX: K08.89 Other specified disorders of teeth and supporting structures (principal); E11.9 Type 2 diabetes mellitus without complications; G51.0 Bell's palsy; F17.210 Nicotine dependence, cigarettes, uncomplicated; Z88.0 Allergy status to penicillin; Z79.84 Long term (current) use of oral hypoglycemic drugs
CPT/HCPCS: 99282

== ENCOUNTER 2019-12-06 09:05 | Emergency (ER) | payer SELFPAY ==
[~2019-12-06] VITALS: Ht 193 cm; Wt 104.5 kg
--- NOTE | 2019-12-06 09:15 | ED EENT ---
History of Present Illness General Chief Complaint: Dental Problems/Pain Stated Complaint: DENTAL PAIN Source: patient Exam Limitations: no limitations History of Present Illness Date Seen by Provider: Dec 06, 2019 Time Seen by Provider: 09:14 Initial Comments 39-year-old male presents with left lower jaw and dental pain. Patient has some minor swelling in his left lower jaw. Patient has very poor dentation and thinks he has a tooth infection. Patient reports he's had a dental abscess in a different area before. Patient sees [facility] for his dentist. He denies any fevers, chills Allergies and Home Medications Allergies Coded Allergies: Penicillins (Unverified Allergy, Mild, 01/29/09) clindamycin (Verified Adverse Reaction, Unknown, 12/06/19) NAUSEA AND RASH Home Medications Cefuroxime Axetil 250 Mg Tablet, 250 MG PO BID Prescribed by: WALTER NAVARRETE on 12/27/182034 Cephalexin 500 Mg Tablet, 500 MG PO QID Prescribed by: SARI MCKEON on 01/06/191904 Clindamycin HCl 300 Mg Capsule, 300 MG PO QID Prescribed by: CHER VIGIL on 03/10/19 020 Clindamycin HCl 300 Mg Capsule, 300 MG PO TID Prescribed by: WALTER NAVARRETE on 11/11/19 1046 Metformin HCl 1,000 Mg Tablet, 1,000 MG PO BID, (Reported) Nystatin 100,000 Unit/1 Ml Oral.susp, 4 ML PO QID Swish medicine and swallow Prescribed by: SARI MCKEON on 01/06/191904 Sulfamethoxazole/Trimethoprim 1 Each Tablet, 1 EACH PO BID Prescribed by: LU YOUNGER on 12/06/19 0935 Tramadol HCl 50 Mg Tablet, 50 MG PO Q8H PRN for PAIN Prescribed by: SARI MCKEON on 01/06/191904 Tramadol HCl 50 Mg Tablet, 50 MG PO QID Prescribed by: CHER VIGIL on 03/10/19 020 Tramadol HCl 50 Mg Tablet, 50 MG PO Q6H PRN for PAIN-MODERATE (5-7) Prescribed by: WALTER NAVARRETE on 11/11/19 1047 Patient Home Medication List Home Medication List Reviewed: Yes Review of Systems Review of Systems Constitutional: No chills, No fever Ears: No Symptoms Reported Nose: no symptoms reported Mouth: see HPI Respiratory: No cough, No short of breath Cardiovascular: No chest pain Gastrointestinal: No abdominal pain, No nausea, No vomiting Musculoskeletal: no symptoms reported Skin: no symptoms reported Past Zbfzbqn-Namykp-Tjqepd Hx Past Med/Social Hx: Reviewed Nursing Past Med/Soc Hx Patient Social History Drug of Choice: "WEED" Type Used: Cigarettes 2nd Hand Smoke Exposure: Yes Recent Foreign Travel: No Contact w/Someone Who Travel: No Recent Hopitalizations: No Immunizations Up To Date Tetanus Booster (TDap): Unknown Seasonal Allergies Seasonal Allergies: No Past Medical History Surgeries: No Respiratory: Yes Asthma Cardiac: No Neurological: Yes (BELLS PALSY) Genitourinary: No Gastrointestinal: No Musculoskeletal: Yes Chronic Back Pain Endocrine: Yes Diabetes, Non-Insulin dep HEENT: No Cancer: No Psychosocial: Yes Depression Integumentary: No Blood Disorders: No Adverse Reaction/Blood Tranf: No Physical Exam Vital Signs Vital Signs - First Documented 12/06/19 09:09 Temp 36.4 Pulse 97 Resp 18 B/P (MAP) 135/85 (102) Pulse Ox 97 O2 Delivery Room Air Height, Weight, BMI Height: 6'4.00" Weight: 250lbs. oz. 113.681521gt; 28.00 BMI Method:Stated General Appearance: no apparent distress Mouth/Throat: dental tenderness (mild swelling and induration in the left jaw but no palpable abscess), other Neck: non-tender, supple Cardiovascular: normal peripheral pulses, regular rate, rhythm Respiratory: lungs clear, normal breath sounds Gastrointestinal: non tender, soft Neurologic/Psychiatric: alert, oriented x 3 Progress/Results/Core Measures Results/Orders My Orders Orders - LU YOUNGER DO Ketorolac Injection (Toradol Injection) (12/06/19 09:28) Vital Signs/I&O 12/06/19 12/06/19 09:09 10:13 Temp 36.4 Pulse 97 86 Resp 18 18 B/P (MAP) 135/85 (102) 118/81 Pulse Ox 97 96 O2 Delivery Room Air Departure Impression Primary Impression: Dental abscess Additional Impression: Dental caries Disposition: 01 HOME, SELF-CARE Condition: Stable Departure-Patient Inst. Referrals: [facility] (PCP) Primary Care Physician HERIBERTO BRO (Family) Primary Care Physician Patient Instructions: Tooth Abscess (DC), Dental Pain (DC) Scripts Sulfamethoxazole/Trimethoprim (Bactrim Ds Tablet) 1 Each Tablet 1 EACH PO BID, #20 TAB Prov: LU YOUNGER DO 12/06/19 LU YOUNGER DO Dec 06, 2019 09:15
[2019-12-06] MEDS ORDERED: KETOROLAC 60 MG/2 ML VIAL IM STA (09:28)
[2019-12-06] MEDS ORDERED: SULF1TAB35 PO (09:35)
[2019-12-06 10:13] VITALS: BP 118/81
== END 2019-12-06 10:13 | disposition home or self-care (01) ==
LOC: EDUNIT# 09:05 → ER 09:06
DX: K04.7 Periapical abscess without sinus (principal); K02.9 Dental caries, unspecified; E11.9 Type 2 diabetes mellitus without complications; F32.9 Major depressive disorder, single episode, unspecified; Z79.84 Long term (current) use of oral hypoglycemic drugs
CPT/HCPCS: 96372; 99284

== ENCOUNTER 2019-12-24 11:11 | Emergency (ER) | payer SELFPAY ==
[~2019-12-24] VITALS: Ht 193 cm; Wt 104.5 kg
[~2019-12-24 11:11] MED LIST changes: +SULF1TAB35 PO
[2019-12-24 11:15] VITALS: BP 119/82
[2019-12-24] MEDS ORDERED: MELO15TA14 PO (11:28)
[2019-12-24] MEDS ORDERED: CEFU500T63 PO (11:28)
[2019-12-24] MEDS ORDERED: LIDO20SO23 MM (11:28)
--- NOTE | 2019-12-24 11:28 | ED EENT ---
History of Present Illness General Chief Complaint: Dental Problems/Pain Stated Complaint: DENTAL PAIN Source: patient History of Present Illness Date Seen by Provider: Dec 24, 2019 Time Seen by Provider: 11:20 Initial Comments PT ARRIVES VIA POV FROM HOME STATES HE WOKE UP AT 0400 THIS AM WITH DENTAL PAIN--LEFT LOWER MOLAR AREA HAS HAD PROBLEMS WITH THIS TOOTH IN THE PAST, BUT HAS NOT BEEN TO DENTIST IN MANY YEARS. NO SWELLING OF FACE/JAW NO FEVER MULTIPLE ER VISITS IN PAST FOR THIS. LAST VISIT 12/06/19 AND GIVEN RX FOR BACTRIM--PAIN IN SAME AREA. ALSO HERE 11/11/19 FOR SAME--PAIN IN SAME AREA, GIVEN RX FOR CLINDAMYCIN AND TRAMADOL PT HAS NOT ATTEMPTED TO SEE DENTIST AFTER EITHER OF THESE VISITS PCP: [facility] Allergies and Home Medications Allergies Coded Allergies: Penicillins (Unverified Allergy, Mild, 01/29/09) clindamycin (Verified Adverse Reaction, Unknown, 12/06/19) NAUSEA AND RASH Home Medications Cefuroxime Axetil 250 Mg Tablet, 250 MG PO BID Prescribed by: WALTER NAVARRETE on 12/27/182034 Cefuroxime Axetil 500 Mg Tablet, 500 MG PO BID Prescribed by: GUTIERREZ PHAN on 12/24/19 1128 Cephalexin 500 Mg Tablet, 500 MG PO QID Prescribed by: SARI MCKEON on 01/06/191904 Clindamycin HCl 300 Mg Capsule, 300 MG PO QID Prescribed by: CHER VIGIL on 03/10/19 0203 Clindamycin HCl 300 Mg Capsule, 300 MG PO TID Prescribed by: WALTER NAVARRETE on 11/11/19 1046 Lidocaine HCl 15 Ml Solution, 1-2 ML MM [id number] Prescribed by: GUTIERREZ PHAN on 12/24/19 1128 Meloxicam 15 Mg Tablet, 15 MG PO DAILY Prescribed by: GUTIERREZ PHAN on 12/24/19 1128 Metformin HCl 1,000 Mg Tablet, 1,000 MG PO BID, (Reported) Nystatin 100,000 Unit/1 Ml Oral.susp, 4 ML PO QID Swish medicine and swallow Prescribed by: SARI MCKEON on 01/06/191904 Sulfamethoxazole/Trimethoprim 1 Each Tablet, 1 EACH PO BID Prescribed by: LU YOUNGER on 12/06/19 0935 Tramadol HCl 50 Mg Tablet, 50 MG PO Q8H PRN for PAIN Prescribed by: SARI MCKEON on 01/06/19 1905 Tramadol HCl 50 Mg Tablet, 50 MG PO QID Prescribed by: CHER VIGIL on 03/10/19 0203 Tramadol HCl 50 Mg Tablet, 50 MG PO Q6H PRN for PAIN-MODERATE (5-7) Prescribed by: WALTER NAVARRETE on 11/11/19 1047 Patient Home Medication List Home Medication List Reviewed: Yes Review of Systems Review of Systems Constitutional: no symptoms reported Mouth: see HPI Past Lurroae-Lisjtd-Edlyhl Hx Past Med/Social Hx: Reviewed and Corrections made Patient Social History Alcohol Use: Occasionally Uses Recreational Drug Use: Yes (THC) Drug of Choice: "WEED" Smoking Status: Current Everyday Smoker (1 PPD) Type Used: Cigarettes 2nd Hand Smoke Exposure: Yes Recent Foreign Travel: No Contact w/Someone Who Travel: No Recent Hopitalizations: No Immunizations Up To Date Tetanus Booster (TDap): Unknown Seasonal Allergies Seasonal Allergies: No Past Medical History Surgeries: No Respiratory: Yes Asthma Cardiac: No Neurological: Yes (BELLS PALSY) Genitourinary: No Gastrointestinal: No Musculoskeletal: Yes Chronic Back Pain Endocrine: Yes Diabetes, Non-Insulin dep HEENT: Yes (CHRONIC DENTAL ISSUES/CARIES) Cancer: No Psychosocial: Yes Depression Integumentary: No Blood Disorders: No Adverse Reaction/Blood Tranf: No Physical Exam Vital Signs Vital Signs - First Documented 12/24/19 11:15 Temp 36.9 Pulse 85 Resp 18 B/P (MAP) 119/82 (94) Pulse Ox 98 O2 Delivery Room Air Height, Weight, BMI Height: 6'4.00" Weight: 250lbs. oz. 113.475063yz; 28.00 BMI Method:Stated General Appearance: WD/WN, no apparent distress Eyes: bilateral eye normal inspection Mouth/Throat: other (EXTENSIVE DENTAL DECAY WITH NEARLY ALL TEETH DECAYED DOWN TO GUMS. LEFT LOWER 2ND/3RD MOLAR AREA TENDER, WITH MILD LOCAL GUM INFLAMMATION/SWELLING. NO OBVIOUS ABSCESS. NO SWELLING TO FACE OR JAW. 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 Referrals: [facility] (PCP/Family) Primary Care Physician Patient Instructions: Tooth Decay, Adult (DC) Add. Discharge Instructions: WARM [place]ES FREQUENTLY FOLLOW UP WITH [facility] THIS WEEK FOR FURTHER CARE All discharge instructions reviewed with patient and/or family. Voiced und erstanding. Scripts Meloxicam (Mobic) 15 Mg Tablet 15 MG PO DAILY, #10 TAB Prov: GUTIERREZ PHAN DO 12/24/19 Lidocaine HCl (Lidocaine HCl Viscous) 15 Ml Solution 1-2 ML MM [id number], #120 ML Prov: GUTIERREZ PHAN DO 12/24/19 Cefuroxime Axetil (Cefuroxime) 500 Mg Tablet 500 MG PO BID, #20 TAB Prov: GUTIERREZ PHAN DO 12/24/19 GUTIERREZ PHAN DO Dec 24, 2019 11:28
== END 2019-12-24 11:37 | disposition home or self-care (01) ==
LOC: EDUNIT# 11:11 → ER 11:12
DX: K02.9 Dental caries, unspecified (principal); E11.9 Type 2 diabetes mellitus without complications; G51.0 Bell's palsy; G89.29 Other chronic pain; M54.9 Dorsalgia, unspecified; F17.210 Nicotine dependence, cigarettes, uncomplicated; Z88.0 Allergy status to penicillin; Z88.1 Allergy status to other antibiotic agents; Z79.84 Long term (current) use of oral hypoglycemic drugs; Z79.891 Long term (current) use of opiate analgesic
CPT/HCPCS: 99282

== ENCOUNTER 2020-02-20 13:49 | Emergency (ER) | payer SELFPAY ==
[~2020-02-20] VITALS: Ht 193 cm; Wt 99.4 kg
[~2020-02-20 13:49] MED LIST changes: +CEFU500T63 PO; +LIDO20SO23 MM; +MELO15TA14 PO
[2020-02-20] MEDS ORDERED: LACTATED RINGERS 1,000 ML IV ONE (14:20)
--- NOTE | 2020-02-20 14:27 | ED Back Pain ---
General Chief Complaint: Back Problems Stated Complaint: BACK/SIDE PAIN Nursing Triage Note: AMBULATED TO ROOM 03 WITH COMPLAINTS OF LEFT FLANK PAIN STARTING ON WEDNESDAY. Nursing Sepsis Screen: No Definite Risk Source of Information: Patient Exam Limitations: No Limitations History of Present Illness Date Seen by Provider: Feb 20, 2020 Time Seen by Provider: 14:11 Initial Comments Patient presents to ER by private conveyance with 2 days progressively worsening left flank pain starting from his back radiating forward. No dysuria or hematuria. No nausea or vomiting. Last dose of ibuprofen 600 mg about 6 hours ago which took the edge off. No fevers chills cough or shortness of air. He has a history of kidney stones seen on incidental imaging but never having passed one. He is diabetic and takes metformin occasionally. Says his last A1c was 14. Follows with [facility] for primary care. Uses allergy to penicillin is that he got a bad rash when he was a kid. His allergy to clindamycin was that it gave him nausea. Allergies and Home Medications Allergies Coded Allergies: Penicillins (Unverified Allergy, Mild, 01/29/09) clindamycin (Verified Adverse Reaction, Unknown, 12/06/19) NAUSEA AND RASH Home Medications Cefuroxime Axetil 250 Mg Tablet, 250 MG PO BID Prescribed by: WALTER NAVARRETE on 12/27/182034 Cefuroxime Axetil 500 Mg Tablet, 500 MG PO BID Prescribed by: GUTIERREZ PHAN on 12/24/191127 Cephalexin 500 Mg Tablet, 500 MG PO QID Prescribed by: SARI MCKEON on 01/06/191904 Clindamycin HCl 300 Mg Capsule, 300 MG PO QID Prescribed by: CHER VIGIL on 03/10/19 0203 Clindamycin HCl 300 Mg Capsule, 300 MG PO TID Prescribed by: WALTER NAVARRETE on 11/11/19 1046 Lidocaine HCl 15 Ml Solution, 1-2 ML MM [id number] Prescribed by: GUTIERREZ PHAN on 12/24/19 112 Meloxicam 15 Mg Tablet, 15 MG PO DAILY Prescribed by: GUTIERREZ PHAN on 12/24/19 112 Metformin HCl 1,000 Mg Tablet, 1,000 MG PO BID, (Reported) Nystatin 100,000 Unit/1 Ml Oral.susp, 4 ML PO QID Swish medicine and swallow Prescribed by: SARI MCKEON on 01/06/191904 Sulfamethoxazole/Trimethoprim 1 Each Tablet, 1 EACH PO BID Prescribed by: LU YOUNGER on 12/06/19 0935 Tramadol HCl 50 Mg Tablet, 50 MG PO Q8H PRN for PAIN Prescribed by: SARI MCKEON on 01/06/19 190 Tramadol HCl 50 Mg Tablet, 50 MG PO QID Prescribed by: CHER VIGIL on 03/10/19 0203 Tramadol HCl 50 Mg Tablet, 50 MG PO Q6H PRN for PAIN-MODERATE (5-7) Prescribed by: WALTER NAVARRETE on 11/11/19 1047 Patient Home Medication List Home Medication List Reviewed: Yes Review of Systems Constitutional: No chills, No diaphoresis EENTM: No ear discharge, No ear pain Respiratory: No cough, No short of breath Cardiovascular: No chest pain, No edema Gastrointestinal: No abdominal pain, No nausea, No vomiting Genitourinary: No dysuria, No hematuria Musculoskeletal: see HPI, back pain; No joint pain All Other Systems Reviewed Negative Unless Noted: Yes Past Jcamobx-Ggyxao-Qsoimp Hx Patient Social History Alcohol Use: Denies Use Recreational Drug Use: Yes Drug of Choice: "WEED" Smoking Status: Current Everyday Smoker Type Used: Cigarettes (one pack per day) 2nd Hand Smoke Exposure: Yes Recent Foreign Travel: No Contact w/Someone Who Travel: No Recent Infectious Disease Expo: No Recent Hopitalizations: No Immunizations Up To Date Tetanus Booster (TDap): Unknown Seasonal Allergies Seasonal Allergies: No Past Medical History Surgeries: No Respiratory: Yes Asthma Cardiac: No Neurological: Yes (BELLS PALSY) Genitourinary: No Gastrointestinal: No Musculoskeletal: Yes Chronic Back Pain Endocrine: Yes Diabetes, Non-Insulin dep HEENT: Yes (CHRONIC DENTAL ISSUES/CARIES) Cancer: No Psychosocial: Yes Depression Integumentary: No Blood Disorders: No Adverse Reaction/Blood Tranf: No Physical Exam Vital Signs Vital Signs - First Documented 02/20/20 14:10 Temp 37.0 Pulse 99 Resp 16 B/P (MAP) 131/80 (97) Pulse Ox 97 O2 Delivery Room Air Capillary Refill : Less Than 3 Seconds Height, Weight, BMI Height: 6'4.00" Weight: 250lbs. oz. 113.738818ul; 26.00 BMI Method:Stated General Appearance: WD/WN, Moderate Distress HEENT: PERRL/EOMI, Pharynx Normal, Moist Mucous Membranes Neck: Full Range of Motion, Normal Inspection, Non Tender Cardiovascular: Regular Rate, Rhythm, No Edema, Normal Peripheral Pulses Respiratory: Lungs Clear, Normal Breath Sounds, No Accessory Muscle Use, No Respiratory Distress Gastrointestinal: Normal Bowel Sounds, Non Tender, Soft Back: Normal Inspection, No Vertebral Tenderness, CVA Tenderness (L); No CVA Tenderness (R) Extremity: Normal Capillary Refill, Non Tender, No Calf Tenderness Neurologic/Psychiatric: Alert, Oriented x3 Skin: Normal Color, Warm/Dry Progress/Results/Core Measures Results/Orders Lab Results Laboratory Tests Test 02/20/20 14:20 02/20/20 14:30 Range/Units Urine Color YELLOW Urine Clarity CLEAR Urine pH 6.0 5-9 Urine Specific Melissa <=1.005 1.016-1.022 Urine Protein NEGATIVE NEGATIVE Urine Glucose (UA) 3+ H NEGATIVE Urine Ketones NEGATIVE NEGATIVE Urine Nitrite NEGATIVE NEGATIVE Urine Bilirubin NEGATIVE NEGATIVE Urine Urobilinogen 0.2 < = 1.0 MG/DL Urine Leukocyte Esterase NEGATIVE NEGATIVE Urine RBC (Auto) NEGATIVE NEGATIVE Urine RBC RARE /HPF Urine WBC RARE /HPF Urine Crystals NONE /LPF Urine Bacteria NEGATIVE /HPF Urine Casts NONE /LPF Urine Mucus NEGATIVE /LPF Urine Culture Indicated NO Urine Opiates Screen NEGATIVE NEGATIVE Urine Oxycodone Screen NEGATIVE NEGATIVE Urine Methadone Screen NEGATIVE NEGATIVE Urine Propoxyphene Screen NEGATIVE NEGATIVE Urine Barbiturates Screen NEGATIVE NEGATIVE Ur Tricyclic Antidepressants Screen NEGATIVE NEGATIVE Urine Phencyclidine Screen NEGATIVE NEGATIVE Urine Amphetamines Screen NEGATIVE NEGATIVE Urine Methamphetamines Screen NEGATIVE NEGATIVE Urine Benzodiazepines Screen NEGATIVE NEGATIVE Urine Cocaine Screen NEGATIVE NEGATIVE Urine Cannabinoids Screen NEGATIVE NEGATIVE White Blood Count 6.8 4.3-11.0 10^3/uL Red Blood Count 5.30 4.35-5.85 10^6/uL Hemoglobin 16.2 13.3-17.7 G/DL Hematocrit 43 40-54 % Mean Corpuscular Volume 82 80-99 FL Mean Corpuscular Hemoglobin 31 25-34 PG Mean Corpuscular Hemoglobin Concent 37 H 32-36 G/DL Red Cell Distribution Width 12.8 10.0-14.5 % Platelet Count 175 130-400 10^3/uL Mean Platelet Volume 11.1 H 7.4-10.4 FL Neutrophils (%) (Auto) 55 42-75 % Lymphocytes (%) (Auto) 33 12-44 % Monocytes (%) (Auto) 9 0-12 % Eosinophils (%) (Auto) 2 0-10 % Basophils (%) (Auto) 1 0-10 % Neutrophils # (Auto) 3.8 1.8-7.8 X 10^3 Lymphocytes # (Auto) 2.2 1.0-4.0 X 10^3 Monocytes # (Auto) 0.6 0.0-1.0 X 10^3 Eosinophils # (Auto) 0.1 0.0-0.3 10^3/uL Basophils # (Auto) 0.1 0.0-0.1 10^3/uL Sodium Level 131 L 135-145 MMOL/L Potassium Level 4.3 3.6-5.0 MMOL/L Chloride Level 99 98-107 MMOL/L Carbon Dioxide Level 24 21-32 MMOL/L Anion Gap 8 5-14 MMOL/L Blood Urea Nitrogen 12 7-18 MG/DL Creatinine 0.96 0.60-1.30 MG/DL Estimat Glomerular Filtration Rate > 60 BUN/Creatinine Ratio 13 Glucose Level 555 *H 70-105 MG/DL Calcium Level 8.9 8.5-10.1 MG/DL Corrected Calcium 9.1 8.5-10.1 MG/DL Total Bilirubin 0.3 0.1-1.0 MG/DL Aspartate Amino Transf (AST/SGOT) 12 5-34 U/L Alanine Aminotransferase (ALT/SGPT) 16 0-55 U/L Alkaline Phosphatase 73 40-136 U/L Total Protein 6.9 6.4-8.2 GM/DL Albumin 3.8 3.2-4.5 GM/DL Lipase 43 8-78 U/L My Orders Orders - RIGOBERTO GONZALES Ed Iv/Invasive Line Start (02/20/20 14:20) Lactated Ringers (Lr 1000 Ml Iv Solution (02/20/20 14:20) Ketorolac Injection (Toradol Injection) (02/20/20 14:30) Cbc With Automated Diff (02/20/20 14:20) Comprehensive Metabolic Panel (02/20/20 14:20) Drug Screen Stat (Urine) (02/20/20 14:20) Ct Abd/Pelvis Wo(Kidney Stone) (02/20/20 14:20) Insulin Determir (Per Unit) (Levemir (Pe (02/20/20 15:15) Insulin Aspart (Novolog) (Novolog (Charg (02/20/20 15:15) Lipase (02/20/20 15:16) Accucheck Stat ONCE (02/20/20 15:48) Medications Given in ED Current Medications Medications Dose Ordered Sig/Nelli Route Start Time Stop Time Status Last Admin Dose Admin Insulin Aspart 10 unit ONCE ONCE SC 02/20/20 15:15 02/20/20 15:16 DC 02/20/20 15:15 10 UNIT Insulin Detemir 10 unit ONCE ONCE SQ 02/20/20 15:15 02/20/20 15:16 DC 02/20/20 15:15 10 UNIT Ketorolac Tromethamine 30 mg ONCE ONCE IVP 02/20/20 14:30 02/20/20 14:31 DC 02/20/20 14:40 30 MG Lactated Ringer's 1,000 ml @ 0 mls/hr Q0M ONCE IV 02/20/20 14:20 02/20/20 14:24 DC 02/20/20 14:40 1,000 MLS/HR Vital Signs/I&O 02/20/20 14:10 Temp 37.0 Pulse 99 Resp 16 B/P (MAP) 131/80 (97) Pulse Ox 97 O2 Delivery Room Air Blood Pressure Mean: 97 Progress Progress Note #1: Time: 14:27 Progress Note Pulse likely a kidney stone however because of his sec-av-rhmvgpw diabetes pyelonephritis is a possibility. We'll get some urine samples labs give him a liter of fluids since is tachycardic around 100. We'll check drug screen to rule out that as a secondary source of tachycardia. CT of the abdomen and pelvis without IV contrast kidney stone study. Toradol for pain. Progress Note #2: Time: 15:42 Progress Note Patient has pancreatitis likely related to hyperglycemia. We have given him 10 units of Levemir and 10 units of NovoLog. Blood sugar 555 initially. Were going to repeat one now. His lipase is normal and his labs are otherwise unremarkable. His pain seemed to be significantly improved and his nausea is controlled with Zofran. We could have him follow up outpatient with primary care and some pain and nausea medicines. Repeat blood sugar 490. We'll talk to his primary care team to arrange close outpatient follow-up. We discussed this option with the patient and he is perfectly fine with this. He is now having no significant nausea and says his pain is nearly gone. Diagnostic Imaging Diagonstic Imaging: CT Plain Films/CT/US/NM/MRI: abdomen, pelvis Comments NAME: TRIXIE [facility]RISTY [facility] REC#: [id number] PT STATUS: REG ER : 1980 PHYSICIAN: RIGOBERTO GONZALES MD ADMIT DATE: 02/20/20/ER Draft Date of Exam:02/20/20 CT ABD/PELVIS WO(KIDNEY STONE) PROCEDURE: CT urinary tract, rule out kidney stone. TECHNIQUE: Multiple contiguous axial images were obtained through the abdomen and pelvis without the use of intravenous contrast. Auto Exposure Controls were utilized during the CT exam to meet ALARA standards for radiation dose reduction. INDICATION: Left flank pain. COMPARISON: Comparison is made with prior CT from 12/27/2018. FINDINGS: The lung bases are clear. The liver is unremarkable. Gallbladder is contracted and appears to contain a small stone. There is no biliary ductal dilatation identified. There is some very mild inflammatory stranding adjacent to the pancreatic tail. No fluid collection is seen. Spleen is unremarkable. No adrenal mass is detected. Small nonobstructing calculus in lower pole of right kidney is again noted measuring 4 mm in size. There is a tiny nonobstructing calculus in lower pole of left kidney. Both ureters are normal in course and caliber. No ureteral calculi or hydronephrosis is seen. No bladder calculi are detected. The aorta is non-aneurysmal. The colon does contain moderate stool suggesting constipation. Small bowel loops are normal caliber. There is no obstruction. Appendix is visualized and unremarkable. There is no free fluid or fluid collection detected. Prostate is unremarkable. IMPRESSION: 1. Bilateral nonobstructing nephrolithiasis. No ureteral calculi or hydronephrosis is detected. 2. Cholelithiasis. 3. Mild inflammatory stranding adjacent to the pancreatic body and tail. This may be secondary to pancreatitis. Correlation with amylase and lipase levels would be useful. No other significant abnormality is identified. Dictated on workstation # [id number] Dict: 02/20/20 1503 Trans: 02/20/20 1511 [facility] [id number] Interpreted by: BYRON ROY MD Electronically signed by: Reviewed: Reviewed by Me Consults : Consulting Physician: A Departure Communication (PCP) Discussed the case with Dr. Silveira coning machine operator for . She says she can get a prescription sent over to up off the care for him to fruit or nut picker as well as have scheduling call him for follow-up. Impression Primary Impression: Acute pancreatitis Qualified Codes: K85.90 - Acute pancreatitis without necrosis or infection, unspecified Additional Impression: Diabetes type 2, uncontrolled Qualified Codes: E11.65 - Type 2 diabetes mellitus with hyperglycemia Disposition: HOME, SELF-CARE Condition: Improved Departure-Patient Inst. Decision time for Depature: 15:52 Referrals: [facility] (PCP/Family) Primary Care Physician Patient Instructions: Diabetes Type 2 (DC), Pancreatitis (DC) Add. Discharge Instructions: Dr. Silveira from has called some insulin into the pharmacy for you to fruit or nut picker and take from [facility]. Ondansetron one tablet under the tongue every 6 hours as necessary for nausea or vomiting. Someone from scheduling should be calling you to set up an appointment for follow-up. If you have pain you may take Tylenol 650 mg every 6 hours. Ibuprofen 600 mg every 6 hours as necessary. Take Prilosec 40 mg daily to reduce the acid. If you still have breakthrough pain then you may take one tablet of tramadol every 6 hours as necessary. Make sure you are drinking plenty of fluids. Return to the ER if your symptoms are unmanageable or you have other worrisome concerns. All discharge instructions reviewed with patient and/or family. Voiced understanding. Scripts Ondansetron (Ondansetron Odt) 4 Mg Tab.rapdis 4 MG PO Q6H PRN for NAUSEA/VOMITING, #12 TAB 0 Refills Prov: RIGOBERTO GONZALES 02/20/20 Pantoprazole Sodium (Pantoprazole Sodium) 40 Mg Tablet. 40 MG PO DAILY for 14 Days, #14 TAB 0 Refills Prov: RIGOBERTO GONZALES 02/20/20 RIGOBERTO GONZALES Feb 20, 2020 14:27
[2020-02-20 14:28] LABS: BILIRUBIN,URINE NEGATIVE (NEGATIVE); CLARITY,URINE CLEAR; COLOR,URINE YELLOW; GLUCOSE, URINE (UA) 3+ (NEGATIVE); KETONES,URINE NEGATIVE (NEGATIVE); LEUKOCYTE ESTERASE ,URINE NEGATIVE (NEGATIVE); NITRITE,URINE NEGATIVE (NEGATIVE); PROTEIN,URINE NEGATIVE (NEGATIVE)
[2020-02-20] MEDS ORDERED: KETOROLAC 30 MG/ML VIAL IVP ONE (14:30)
[2020-02-20 14:35] LABS: BACTERIA,URINE NEGATIVE /HPF; RBC,URINE RARE /HPF; WBC,URINE RARE /HPF
[2020-02-20 14:39] LABS: AMPHETAMINE SCREEN, URINE NEGATIVE (NEGATIVE); BARBITURATE SCREEN URINE NEGATIVE (NEGATIVE); BENZODIAZEPINES SCREEN URINE NEGATIVE (NEGATIVE); CANNABINOID SCREEN, URINE NEGATIVE (NEGATIVE); COCAINE SCREEN URINE NEGATIVE (NEGATIVE); METHADONE STAT NEGATIVE (NEGATIVE); METHAMPHETAMINE SCREEN URINE S NEGATIVE (NEGATIVE); OPIATE SCREEN URINE NEGATIVE (NEGATIVE); OXYCODONE STAT NEGATIVE (NEGATIVE); PROPOXYPHENE STAT NEGATIVE (NEGATIVE); TRICYCLIC ANTIDEPRESSANTS SCRE NEGATIVE (NEGATIVE)
[2020-02-20 14:44] LABS: BASOPHILS # (AUTO) 0.1 10^3/uL (0.0-0.1); BASOPHILS % (AUTO) 1 % (0-10); EOSINOPHILS # (AUTO) 0.1 10^3/uL (0.0-0.3); EOSINOPHILS % (AUTO) 2 % (0-10); HEMATOCRIT 43 % (40-54); HEMOGLOBIN 16.2 G/DL (13.3-17.7); LYMPHOCYTES # (AUTO) 2.2 X 10^3 (1.0-4.0); LYMPHOCYTES % (AUTO) 33 % (12-44); MEAN CORPUSCULAR HEMOGLOBIN 31 PG (25-34); MEAN CORPUSCULAR HGB CONC 37 G/DL (32-36); MEAN CORPUSCULAR VOLUME 82 FL (80-99); MEAN PLATELET VOLUME 11.1 FL (7.4-10.4); MONOCYTES # (AUTO) 0.6 X 10^3 (0.0-1.0); MONOCYTES % (AUTO) 9 % (0-12); NEUTROPHILS # (AUTO) 3.8 X 10^3 (1.8-7.8); NEUTROPHILS % (AUTO) 55 % (42-75); PLATELET COUNT 175 10^3/uL (130-400); WHITE BLOOD COUNT 6.8 10^3/uL (4.3-11.0)
[2020-02-20 14:55] LABS: ALBUMIN 3.8 GM/DL (3.2-4.5); CHLORIDE 99 MMOL/L (98-107); POTASSIUM 4.3 MMOL/L (3.6-5.0); SODIUM 131 MMOL/L (135-145)
[2020-02-20 14:56] LABS: CALCIUM 8.9 MG/DL (8.5-10.1)
[2020-02-20 14:58] LABS: TOTAL PROTEIN 6.9 GM/DL (6.4-8.2)
[2020-02-20 14:59] LABS: BILIRUBIN,TOTAL 0.3 MG/DL (0.1-1.0); CARBON DIOXIDE 24 MMOL/L (21-32)
[2020-02-20 15:01] LABS: ALKALINE PHOSPHATASE 73 U/L (40-136); CREATININE SERUM 0.96 MG/DL (0.60-1.30); GFR ESTIMATED > 60
[2020-02-20 15:02] LABS: BUN/CREATININE RATIO 13
[2020-02-20 15:04] LABS: ALANINE AMINOTRANSFERASE 16 U/L (0-55)
[2020-02-20 15:07] LABS: GLUCOSE 555 MG/DL (70-105)
--- NOTE | 2020-02-20 15:09 | NUR ---
TO ROOM FLUIDS INFUSING TALKING ON CELL PHONE
--- NOTE | 2020-02-20 15:12 | Diagnostic Imaging Report ---
PROCEDURE: CT urinary tract, rule out kidney stone. TECHNIQUE: Multiple contiguous axial images were obtained through the abdomen and pelvis without the use of intravenous contrast. Auto Exposure Controls were utilized during the CT exam to meet ALARA standards for radiation dose reduction. INDICATION: Left flank pain. COMPARISON: Comparison is made with prior CT from 12/27/2018. FINDINGS: The lung bases are clear. The liver is unremarkable. Gallbladder is contracted and appears to contain a small stone. There is no biliary ductal dilatation identified. There is some very mild inflammatory stranding adjacent to the pancreatic tail. No fluid collection is seen. Spleen is unremarkable. No adrenal mass is detected. Small nonobstructing calculus in lower pole of right kidney is again noted measuring 4 mm in size. There is a tiny nonobstructing calculus in lower pole of left kidney. Both ureters are normal in course and caliber. No ureteral calculi or hydronephrosis is seen. No bladder calculi are detected. The aorta is non-aneurysmal. The colon does contain moderate stool suggesting constipation. Small bowel loops are normal caliber. There is no obstruction. Appendix is visualized and unremarkable. There is no free fluid or fluid collection detected. Prostate is unremarkable. IMPRESSION: 1. Bilateral nonobstructing nephrolithiasis. No ureteral calculi or hydronephrosis is detected. 2. Cholelithiasis. 3. Mild inflammatory stranding adjacent to the pancreatic body and tail. This may be secondary to pancreatitis. Correlation with amylase and lipase levels would be useful. No other significant abnormality is identified. Dictated by: Dictated on workstation # [id number]
[2020-02-20] MEDS ORDERED: inSUlin ASPART (NovoLOG) 1 UNIT/0.01 ML (CHARGE PER UNIT) SC ONE (15:15)
[2020-02-20] MEDS ORDERED: ONDA4TAB11 PO (15:55)
[2020-02-20] MEDS ORDERED: PANT40TA3 PO (15:55)
[2020-02-20] MEDS ORDERED: TRM50T PO (15:55)
[2020-02-20 16:11] VITALS: BP 134/94
== END 2020-02-20 16:11 | disposition home or self-care (01) ==
LOC: EDUNIT# 13:49 → ER 13:52
DX: K85.90 Acute pancreatitis without necrosis or infection, unspecified (principal); E11.65 Type 2 diabetes mellitus with hyperglycemia; F17.210 Nicotine dependence, cigarettes, uncomplicated; Z79.84 Long term (current) use of oral hypoglycemic drugs; Z88.0 Allergy status to penicillin; Z88.1 Allergy status to other antibiotic agents
CPT/HCPCS: 36415; 74176; 80053; 80306; 81000; 82962; 83690; 85025

== ENCOUNTER 2020-07-06 03:04 | Emergency (ER) | payer SELFPAY ==
[~2020-07-06] VITALS: Ht 193 cm; Wt 113.4 kg
[~2020-07-06 03:04] MED LIST changes: -CLIN300C11 PO; +CLIN300C12 PO; +PANT40TA52 PO
--- NOTE | 2020-07-06 03:35 | NUR ---
PT UNABLE TO VOID AT THIS TIME.
[2020-07-06] MEDS ORDERED: KETOROLAC 30 MG/ML VIAL IVP ONE (03:45)
[2020-07-06] MEDS ORDERED: LACTATED RINGERS 1,000 ML IV ONE (03:45)
[2020-07-06] MEDS ORDERED: ONDANSETRON 4 MG/2 ML (SDV) Z0FRAN IVP ONE (03:45)
[2020-07-06 03:51] LABS: BASOPHILS # (AUTO) 0.1 10^3/uL (0.0-0.1); BASOPHILS % (AUTO) 1 % (0-10); EOSINOPHILS # (AUTO) 0.2 10^3/uL (0.0-0.3); EOSINOPHILS % (AUTO) 2 % (0-10); HEMATOCRIT 48 % (40-54); HEMOGLOBIN 16.7 g/dL (13.3-17.7); LYMPHOCYTES # (AUTO) 1.9 10^3/uL (1.0-4.0); LYMPHOCYTES % (AUTO) 15 % (12-44); MEAN CORPUSCULAR HEMOGLOBIN 30 pg (25-34); MEAN CORPUSCULAR HGB CONC 35 g/dL (32-36); MEAN CORPUSCULAR VOLUME 86 fL (80-99); MEAN PLATELET VOLUME 10.3 fL (9.0-12.2); MONOCYTES # (AUTO) 1.1 10^3/uL (0.0-1.0); MONOCYTES % (AUTO) 9 % (0-12); NEUTROPHILS # (AUTO) 9.4 10^3/uL (1.8-7.8); NEUTROPHILS % (AUTO) 74 % (42-75); PLATELET COUNT 241 10^3/uL (130-400); WHITE BLOOD COUNT 12.8 10^3/uL (4.3-11.0)
[2020-07-06 04:18] LABS: ALBUMIN 4.6 GM/DL (3.2-4.5); CHLORIDE 102 MMOL/L (98-107); SODIUM 138 MMOL/L (135-145)
[2020-07-06 04:19] LABS: AMYLASE 64 U/L (25-125); CALCIUM 9.4 MG/DL (8.5-10.1)
[2020-07-06 04:20] LABS: GLUCOSE 231 MG/DL (70-105); TOTAL PROTEIN 8.1 GM/DL (6.4-8.2)
[2020-07-06 04:21] LABS: CARBON DIOXIDE 23 MMOL/L (21-32)
[2020-07-06 04:22] LABS: BILIRUBIN,TOTAL 0.6 MG/DL (0.1-1.0)
[2020-07-06 04:24] LABS: ALKALINE PHOSPHATASE 68 U/L (40-136); CREATININE SERUM 0.99 MG/DL (0.60-1.30); GFR ESTIMATED > 60
[2020-07-06 04:25] LABS: BUN/CREATININE RATIO 16
[2020-07-06 04:27] LABS: ALANINE AMINOTRANSFERASE 19 U/L (0-55)
[2020-07-06 04:28] LABS: LIPASE 24 U/L (8-78)
[2020-07-06] MEDS ORDERED: NS IV 1000 ML 1,000 ML IV SCH ×2 (04:45)
--- NOTE | 2020-07-06 05:00 | ED GI ---
General Chief Complaint: Back Problems Stated Complaint: VOMITING, RT SIDE BACK PAIN Nursing Triage Note: right flank pain, n/v x90 min [employer]. Sepsis Screen: No Definite Risk Source of Information: Patient History of Present Illness Date Seen by Provider: Jul 06, 2020 Time Seen by Provider: 03:30 Initial Comments PT ARRIVES VIA POV FROM HOME C/O RIGHT FLANK PAIN AND RIGHT ABDOMINAL PAIN --WOKE HIM UP 1 HOUR AGO C/O NAUSEA AND VOMITING, VOMITED X 3, NOW DRY HEAVES NO DIARRHEA NO FEVER/CHILLS NO URINARY SYMPTOMS HAD KIDNEY STONE IN PAST, DID NOT FOLLOW UP PCP: [facility] [place] Allergies and Home Medications Allergies Coded Allergies: Penicillins (Unverified Allergy, Mild, 01/29/09) clindamycin (Verified Adverse Reaction, Unknown, 12/06/19) NAUSEA AND RASH Home Medications Cefuroxime Axetil 250 Mg Tablet, 250 MG PO BID Prescribed by: WALTER NAVARRETE on 12/27/182034 Cefuroxime Axetil 500 Mg Tablet, 500 MG PO BID Prescribed by: GUTIERREZ PHAN on 12/24/19 112 Cephalexin 500 Mg Tablet, 500 MG PO QID Prescribed by: SARI MCKEON on 01/06/191904 Clindamycin HCl 300 Mg Capsule, 300 MG PO QID Prescribed by: CHER VIGIL on 03/10/19 0203 Clindamycin HCl 300 Mg Capsule, 300 MG PO TID Prescribed by: WALTER NAVARRETE on 11/11/19 1046 Hydrocodone/Acetaminophen 1 Each Tablet, 1-2 EACH PO Q4-6 HOURS PRN for PAIN Prescribed by: GUTIERREZ PHAN on 07/06/20 0513 Lidocaine HCl 15 Ml Solution, 1-2 ML MM [id number] Prescribed by: GUTIERREZ PHAN on 12/24/19 1128 Meloxicam 15 Mg Tablet, 15 MG PO DAILY Prescribed by: GUTIERREZ PHAN on 12/24/19 1128 Metformin HCl 1,000 Mg Tablet, 1,000 MG PO BID, (Reported) Nystatin 100,000 Unit/1 Ml Oral.susp, 4 ML PO QID Swish medicine and swallow Prescribed by: SARI MCKEON on 01/06/191904 Ondansetron 4 Mg Tab.rapdis, 4 MG PO Q6H PRN for NAUSEA/VOMITING Prescribed by: RIGOBERTO GONZALES on 02/20/20 1555 Ondansetron 8 Mg Tab.rapdis, 8 MG PO Q6H Prescribed by: GUTIERREZ PHAN on 07/06/20 05 Pantoprazole Sodium 40 Mg Tablet.dr, 40 MG PO DAILY Prescribed by: RIGOBERTO GONZALES on 02/20/20 1555 Sulfamethoxazole/Trimethoprim 1 Each Tablet, 1 EACH PO BID Prescribed by: LU YOUNGER on 12/06/19 0935 Sulfamethoxazole/Trimethoprim 1 Each Tablet, 1 EACH PO BID Prescribed by: GUTIERREZ PHAN on 07/06/20 05 Tamsulosin HCl 0.4 Mg Cap, 0.4 MG PO DAILY Prescribed by: GUTIERREZ PHAN on 07/06/20 05 Tramadol HCl 50 Mg Tablet, 50 MG PO Q8H PRN for PAIN Prescribed by: SARI MCKEON on 01/06/19 1905 Tramadol HCl 50 Mg Tablet, 50 MG PO QID Prescribed by: CHER VIGIL on 03/10/19 0203 Tramadol HCl 50 Mg Tablet, 50 MG PO Q6H PRN for PAIN-MODERATE (5-7) Prescribed by: WALTER NAVARRETE on 11/11/19 1047 Tramadol HCl 50 Mg Tablet, 50 MG PO Q6H PRN for PAIN Prescribed by: RIGOBERTO GONZALES on 02/20/20 1556 Patient Home Medication List Home Medication List Reviewed: Yes Review of Systems Review of Systems Constitutional: no symptoms reported Respiratory: No Symptoms Reported Cardiovascular: No Symptoms Reported Gastrointestinal: See HPI, Abdominal Pain; Denies Constipated, Denies Diarrhea; Nausea, Vomiting Genitourinary: See HPI; Denies Burning, Denies Frequency; Flank Pain; Denies Hematuria, Denies Pain, Denies Urgency Musculoskeletal: see HPI, back pain Skin: no symptoms reported Psychiatric/Neurological: No Symptoms Reported Endocrine: No Symptoms Reported Past Mjmaxsu-Mxwlej-Xfxrfq Hx Past Med/Social Hx: Reviewed and Corrections made Patient Social History Alcohol Use: Denies Use Drug of Choice: THC Smoking Status: Current Everyday Smoker Type Used: Cigarettes 2nd Hand Smoke Exposure: Yes Recent Infectious Disease Expo: No Recent Hopitalizations: No Substance type: Marijuana Immunizations Up To Date Tetanus Booster (TDap): Unknown Seasonal Allergies Seasonal Allergies: No Past Medical History Surgeries: No Respiratory: Yes Asthma Cardiac: No Neurological: Yes (BELLS PALSY) Neuropathy Genitourinary: Yes Kidney Stones Gastrointestinal: Yes Pancreatitis Musculoskeletal: Yes Chronic Back Pain Endocrine: Yes Diabetes, Non-Insulin dep HEENT: Yes (CHRONIC DENTAL ISSUES/CARIES) Cancer: No Psychosocial: Yes Depression Integumentary: No Blood Disorders: No Adverse Reaction/Blood Tranf: No Physical Exam Vital Signs Vital Signs - First Documented 07/06/20 03:27 Temp 36.7 Pulse 77 Resp 22 B/P (MAP) 130/78 (95) Pulse Ox 100 O2 Delivery Room Air Capillary Refill : Less Than 3 Seconds Height/Weight/BMI Height: 6'4.00" Weight: 250lbs. oz. [id number]; 30.00 BMI Method:Stated General Appearance: WD/WN, other (DRY HEAVING ON ARRIVAL, LOOKS UNCOMFORTABLE) Respiratory: normal breath sounds, no respiratory distress, no accessory muscle use Cardiovascular: regular rate, rhythm, no murmur Gastrointestinal: soft, tenderness (MILD RIGHT FLANK TENDERNESS) Extremities: normal inspection Back: CVA tenderness (R) Neurologic/Psychiatric: no motor/sensory deficits, alert, oriented x 3 Skin: normal color, warm/dry Progress/Results/Core Measures Results/Orders Lab Results Laboratory Tests Test 07/06/20 03:40 07/06/20 04:50 Range/Units White Blood Count 12.8 H 4.3-11.0 10^3/uL Red Blood Count 5.54 H 4.30-5.52 10^6/uL Hemoglobin 16.7 13.3-17.7 g/dL Hematocrit 48 40-54 % Mean Corpuscular Volume 86 80-99 fL Mean Corpuscular Hemoglobin 30 25-34 pg Mean Corpuscular Hemoglobin Concent 35 32-36 g/dL Red Cell Distribution Width 12.4 10.0-14.5 % Platelet Count 241 130-400 10^3/uL Mean Platelet Volume 10.3 9.0-12.2 fL Immature Granulocyte % (Auto) 0 % Neutrophils (%) (Auto) 74 42-75 % Lymphocytes (%) (Auto) 15 12-44 % Monocytes (%) (Auto) 9 0-12 % Eosinophils (%) (Auto) 2 0-10 % Basophils (%) (Auto) 1 0-10 % Neutrophils # (Auto) 9.4 H 1.8-7.8 10^3/uL Lymphocytes # (Auto) 1.9 1.0-4.0 10^3/uL Monocytes # (Auto) 1.1 H 0.0-1.0 10^3/uL Eosinophils # (Auto) 0.2 0.0-0.3 10^3/uL Basophils # (Auto) 0.1 0.0-0.1 10^3/uL Immature Granulocyte # (Auto) 0.1 0.0-0.1 10^3/uL Sodium Level 138 135-145 MMOL/L Potassium Level 4.0 3.6-5.0 MMOL/L Chloride Level 102 98-107 MMOL/L Carbon Dioxide Level 23 21-32 MMOL/L Anion Gap 13 5-14 MMOL/L Blood Urea Nitrogen 16 7-18 MG/DL Creatinine 0.99 0.60-1.30 MG/DL Estimat Glomerular Filtration Rate > 60 BUN/Creatinine Ratio 16 Glucose Level 231 H 70-105 MG/DL Glucometer 213 H 70-110 MG/DL Calcium Level 9.4 8.5-10.1 MG/DL Corrected Calcium 8.5-10.1 MG/DL Total Bilirubin 0.6 0.1-1.0 MG/DL Aspartate Amino Transf (AST/SGOT) 16 5-34 U/L Alanine Aminotransferase (ALT/SGPT) 19 0-55 U/L Alkaline Phosphatase 68 40-136 U/L Total Protein 8.1 6.4-8.2 GM/DL Albumin 4.6 H 3.2-4.5 GM/DL Amylase Level 64 25-125 U/L Lipase 24 8-78 U/L Serum Alcohol < 10 <10 MG/DL Urine Color DARK YELLOW Urine Clarity CLOUDY Urine pH 5.5 5-9 Urine Specific [place] >=1.030 1.016-1.022 Urine Protein 1+ H NEGATIVE Urine Glucose (UA) 2+ H NEGATIVE Urine Ketones NEGATIVE NEGATIVE Urine Nitrite NEGATIVE NEGATIVE Urine Bilirubin 1+ H NEGATIVE Urine Urobilinogen 0.2 < = 1.0 MG/DL Urine Leukocyte Esterase NEGATIVE NEGATIVE Urine RBC (Auto) 3+ H NEGATIVE Urine RBC 50-100 H /HPF Urine WBC 2-5 /HPF Urine Squamous Epithelial Cells RARE /HPF Urine Crystals NONE /LPF Urine Bacteria TRACE /HPF Urine Casts NONE /LPF Urine Mucus NEGATIVE /LPF Urine Culture Indicated NO Urine Opiates Screen NEGATIVE NEGATIVE Urine Oxycodone Screen NEGATIVE NEGATIVE Urine Methadone Screen NEGATIVE NEGATIVE Urine Propoxyphene Screen NEGATIVE NEGATIVE Urine Barbiturates Screen NEGATIVE NEGATIVE Ur Tricyclic Antidepressants Screen NEGATIVE NEGATIVE Urine Phencyclidine Screen NEGATIVE NEGATIVE Urine Amphetamines Screen NEGATIVE NEGATIVE Urine Methamphetamines Screen NEGATIVE NEGATIVE Urine Benzodiazepines Screen NEGATIVE NEGATIVE Urine Cocaine Screen NEGATIVE NEGATIVE Urine Cannabinoids Screen POSITIVE H NEGATIVE My Orders Orders - GUTIERREZ PHAN DO Ed Iv/Invasive Line Start (07/06/20 03:31) Monitor-Rhythm Ecg Trace Only (07/06/20 03:31) Alcohol (07/06/20 03:31) Amylase (07/06/20 03:31) Cbc With Automated Diff (07/06/20 03:31) Comprehensive Metabolic Panel (07/06/20 03:31) Drug Screen Stat (Urine) (07/06/20 03:31) Lipase (07/06/20 03:31) Ua Culture If Indicated (07/06/20 03:31) Ondansetron Injection (Zofran Injectio (07/06/20 03:45) Ed Iv/Invasive Line Start (07/06/20 03:31) Lactated Ringers (Lr 1000 Ml Iv Solution (07/06/20 03:45) Ketorolac Injection (Toradol Injection) (07/06/20 03:45) Accucheck Stat ONCE (07/06/20 03:31) Ct Abd/Pelvis Wo(Kidney Stone) (07/06/20 04:16) Abdomen/Kub 1view (07/06/20 04:16) Ed Iv/Invasive Line Start (07/06/20 04:33) Ns Iv 1000 Ml (Sodium Chloride 0.9%) (07/06/20 04:45) Ed Iv/Invasive Line Start (07/06/20 04:43) Ns Iv 1000 Ml (Sodium Chloride 0.9%) (07/06/20 04:45) Tamsulosin Capsule (Flomax Capsule) (07/06/20 05:15) Rx-Hydrocodone/Apap 5-325 Mg (Rx-Vicodin (07/06/20 05:45) Rx-Ondansetron Po (Rx-Zofran Po) (07/06/20 05:38) Medications Given in ED Vital Signs/I&O 07/06/20 07/06/20 03:27 05:45 Temp 36.7 36.5 Pulse 77 65 Resp 22 16 B/P (MAP) 130/78 (95) 121/74 (95) Pulse Ox 100 99 O2 Delivery Room Air Room Air Blood Pressure Mean: 95 FSBG Bedside Testing Finger Stick Blood Glucose: 213 Progress Progress Note : Progress Note GIVEN IV FLUIDS, ZOFRAN AND TORADOL WITH RESOLUTION OF SYMPTOMS Diagnostic Imaging Comments KUB --NO ACUTE PROCESS, PENDING RADIOLOGIST REVIEW CT ABDOMEN/PELVIS--WORSENING RIGHT UPJ OBSTRUCTION DUE TO SMALL 2 MM STONE WITH HYDRONEPHROSIS ON RIGHT--PER [facility] VIA FAX AT 0458 Departure Impression Primary Impression: Right ureteral calculus Additional Impression: NIDDM Disposition: HOME, SELF-CARE Condition: Improved Departure-Patient Inst. Referrals: [facility] (PCP/Family) Primary Care Physician DOMITILA CLEVELAND MD Patient Instructions: Kidney Stones (DC), How to Strain Your Urine Add. Discharge Instructions: LOTS OF CLEAR LIQUIDS--DRINK ENOUGH SO YOU ARE URINATING EVERY 2-3 HOURS WHILE AWAKE STRAIN ALL URINE--RETURN ANY STONES TO DR. CLEVELAND'S OFFICE FOLLOW UP WITH DR. CLEVELAND ON WEDNESDAY FOR FURTHER CARE, RETURN TO ER IF WORSE All discharge instructions reviewed with patient and/or family. Voiced understanding. Scripts Tamsulosin HCl (Flomax) 0.4 Mg Cap 0.4 MG PO DAILY, #10 CAP Prov: IRMA PHANA K DO 07/06/20 Ondansetron (Ondansetron Odt) 8 Mg Tab.rapdis 8 MG PO Q6H, #10 TAB Prov: SYLVESTERIRMAA K DO 07/06/20 Hydrocodone/Acetaminophen (Hydrocodone-Acetamin 5-325 mg) 1 Each Tablet 1-2 EACH PO Q4-6 HOURS PRN for PAIN, #20 TAB Prov: SYLVESTER,GUTIERREZ K DO 07/06/20 Sulfamethoxazole/Trimethoprim (Bactrim Ds Tablet) 1 Each Tablet 1 EACH PO BID, #20 TAB Prov: SYLVESTERGUTIERREZ K DO 07/06/20 SYLVESTERGUTIERREZ K DO Jul 06, 2020 05:00
[2020-07-06] MEDS ORDERED: SULF1TAB35 PO (05:13)
[2020-07-06] MEDS ORDERED: TMSL.4C PO (05:13)
[2020-07-06] MEDS ORDERED: ACHD5005 PO (05:13)
[2020-07-06] MEDS ORDERED: ONDA8TAB13 PO (05:13)
[2020-07-06] MEDS ORDERED: TAMSULOSIN 0.4 MG (FLOMAX) CAP PO SCH (05:15)
[2020-07-06 05:18] LABS: BILIRUBIN,URINE 1+ (NEGATIVE); CLARITY,URINE CLOUDY; COLOR,URINE DARK YELLOW; GLUCOSE, URINE (UA) 2+ (NEGATIVE); KETONES,URINE NEGATIVE (NEGATIVE); LEUKOCYTE ESTERASE ,URINE NEGATIVE (NEGATIVE); NITRITE,URINE NEGATIVE (NEGATIVE); PH,URINE 5.5 (5-9); PROTEIN,URINE 1+ (NEGATIVE)
[2020-07-06 05:31] LABS: AMPHETAMINE SCREEN, URINE NEGATIVE (NEGATIVE); BARBITURATE SCREEN URINE NEGATIVE (NEGATIVE); BENZODIAZEPINES SCREEN URINE NEGATIVE (NEGATIVE); CANNABINOID SCREEN, URINE POSITIVE (NEGATIVE); COCAINE SCREEN URINE NEGATIVE (NEGATIVE); METHADONE STAT NEGATIVE (NEGATIVE); METHAMPHETAMINE SCREEN URINE S NEGATIVE (NEGATIVE); OPIATE SCREEN URINE NEGATIVE (NEGATIVE); OXYCODONE STAT NEGATIVE (NEGATIVE); PROPOXYPHENE STAT NEGATIVE (NEGATIVE); RBC,URINE 50-100 /HPF; TRICYCLIC ANTIDEPRESSANTS SCRE NEGATIVE (NEGATIVE)
[2020-07-06 05:32] LABS: BACTERIA,URINE TRACE /HPF; SQUAMOUS EPITHELIAL CELL,UR RARE /HPF
[2020-07-06] MEDS ORDERED: RX-ONDANSETRON 4 MG ODT (ZOFRAN) PPK #4 PO STA (05:38)
[2020-07-06 05:45] VITALS: BP 121/74
[2020-07-06] MEDS ORDERED: RX-HYDROCODONE/APAP 5/325 MG #4 TAB PK PO PRN (05:45)
--- NOTE | 2020-07-06 06:43 | Diagnostic Imaging Report ---
EXAMINATION: CT Abdomen Pelvis without contrast. TECHNIQUE: Multiple contiguous axial images were obtained through the abdomen and pelvis without the use of intravenous contrast. All CT scans use one or more of the following dose optimizing techniques: automated exposure control, MA and/or KvP adjustment based on a patient size and exam type, or iterative reconstruction. HISTORY: Right flank pain COMPARISON: 02/20/2020 FINDINGS: Limited views of the lower thorax are unremarkable. The liver is normal without focal lesion. There is no biliary ductal dilation. Small stone is present in the gallbladder. Pancreas is normal. Spleen is normal. Adrenal glands are normal. There is moderate right-sided hydronephrosis with transition at the ureteropelvic junction where there is a submillimeter stone. There is a tiny stone in the left kidney as well as the lower pole of the right kidney. No left-sided hydronephrosis. Urinary bladder is normal. Visualized bowel is normal in caliber without obstruction or inflammation. No free fluid or air. No abdominal or pelvic lymphadenopathy. Aorta is normal in caliber without aneurysm. There are no suspicious osseus lesions. IMPRESSION: 1. Moderate right hydronephrosis secondary to a sub-1 mm stone at the ureteropelvic junction. There is no significant disagreement with the preliminary report. Dictated by: Dictated on workstation # [id number]
--- NOTE | 2020-07-06 07:33 | Diagnostic Imaging Report ---
EXAMINATION: Abdomen 1 view HISTORY: Abdomen pain COMPARISON: 04/30/2007 FINDINGS: No dilated loops of large or small bowel. A 3 mm calcification projects over the lower pole of the right kidney. No free air. Lung bases are clear. IMPRESSION: 1. Normal bowel gas pattern. 2. Calcification projecting over the lower pole of the right kidney measuring 3 mm may represent a stone. Dictated by: Dictated on workstation # [id number]
== END 2020-07-06 05:46 | disposition home or self-care (01) ==
LOC: EDUNIT# 03:04 → ER 03:07
DX: N13.2 Hydronephrosis with renal and ureteral calculous obstruction (principal); E11.9 Type 2 diabetes mellitus without complications; G89.29 Other chronic pain; M54.9 Dorsalgia, unspecified; Z88.0 Allergy status to penicillin; Z88.1 Allergy status to other antibiotic agents; Z77.22 Contact with and (suspected) exposure to environmental tobacco smoke (acute) (chronic); Z79.84 Long term (current) use of oral hypoglycemic drugs; Z79.891 Long term (current) use of opiate analgesic
CPT/HCPCS: 74018; 74176; 80053; 80306; 81000; 82150; 82962; 83690; 85025; 93041; 99284; G0480; 36415; 80320

== ENCOUNTER 2020-11-27 10:49 | Emergency (ER) | payer SELFPAY ==
[~2020-11-27] VITALS: Ht 188 cm; Wt 117.9 kg
[~2020-11-27 10:49] MED LIST changes: -DOXY100T2 PO; -RT-ALBUTEROL SULF 2.5 MG/3 ML PRE-MIX VIAL INH ONE
[2020-11-27 11:32] VITALS: BP 119/84
[2020-11-27] MEDS ORDERED: KETOROLAC 60 MG/2 ML VIAL IM ONE (12:00)
[2020-11-27] MEDS ORDERED: DOXY100T2 PO (12:03)
--- NOTE | 2020-11-27 12:04 | ED EENT ---
History of Present Illness General Chief Complaint: Dental Problems/Pain Stated Complaint: ABCESS TOOTH Source: patient Exam Limitations: no limitations History of Present Illness Date Seen by Provider: Nov 27, 2020 Time Seen by Provider: 12:00 Initial Comments This is a well-appearing 40-year-old male who presents to the ER with complaints of left-sided lower dental pain that started approximately 1.5 days ago. States that he has poor dental health and has been working with [facility][1] to get all of his teeth pulled. States he has to achieve better blood glucose control before they will remove his teeth. He denies fever, chills, cough, shortness of breath, nausea, vomiting, diarrhea, abdominal pain. Currently rating pain 7/10. Has take Ibuprofen 400mg last night with minimal relief. Able to eat and drink without difficulty on his right side. Allergies and Home Medications Allergies Coded Allergies: Penicillins (Unverified Allergy, Mild, 01/29/09) clindamycin (Verified Adverse Reaction, Unknown, 12/06/19) NAUSEA AND RASH Home Medications Cefuroxime Axetil 250 Mg Tablet, 250 MG PO BID Prescribed by: WALTER NAVARRETE on 12/27/182034 Cefuroxime Axetil 500 Mg Tablet, 500 MG PO BID Prescribed by: GUTIERREZ PHAN on 12/24/19 112 Cephalexin 500 Mg Tablet, 500 MG PO QID Prescribed by: SARI MCKEON on 01/06/19 1905 Clindamycin HCl 300 Mg Capsule, 300 MG PO QID Prescribed by: CHER VIGIL on 03/10/19 0203 Clindamycin HCl 300 Mg Capsule, 300 MG PO TID Prescribed by: WALTER NAVARRETE on 11/11/19 1046 Doxycycline Hyclate 100 Mg Tablet, 100 MG PO BID Prescribed by: MEAGAN ALMEIDA on 11/27/20 1203 Hydrocodone/Acetaminophen 1 Each Tablet, 1-2 EACH PO Q4-6 HOURS PRN for PAIN Prescribed by: GUTIERREZ PHAN on 07/06/20 0513 Lidocaine HCl 15 Ml Solution, 1-2 ML MM [id number] Prescribed by: GUTIERREZ PHAN on 12/24/19 1128 Meloxicam 15 Mg Tablet, 15 MG PO DAILY Prescribed by: GUTIERREZ PHAN on 12/24/19 1128 Metformin HCl 1,000 Mg Tablet, 1,000 MG PO BID, (Reported) Nystatin 100,000 Unit/1 Ml Oral.susp, 4 ML PO QID Swish medicine and swallow Prescribed by: SARI MCKEON on 01/06/191904 Ondansetron 4 Mg Tab.rapdis, 4 MG PO Q6H PRN for NAUSEA/VOMITING Prescribed by: RIGOBERTO GONZALES on 02/20/20 155 Ondansetron 8 Mg Tab.rapdis, 8 MG PO Q6H Prescribed by: GUTIERREZ PHAN on 07/06/20 05 Pantoprazole Sodium 40 Mg Tablet.dr, 40 MG PO DAILY Prescribed by: RIGOBERTO GONZALES on 02/20/20 155 Sulfamethoxazole/Trimethoprim 1 Each Tablet, 1 EACH PO BID Prescribed by: LU YOUNGER on 12/06/19 0935 Sulfamethoxazole/Trimethoprim 1 Each Tablet, 1 EACH PO BID Prescribed by: GUTIERREZ PHAN on 07/06/20 05 Tamsulosin HCl 0.4 Mg Cap, 0.4 MG PO DAILY Prescribed by: GUTIERREZ PAHN on 07/06/20 05 Tramadol HCl 50 Mg Tablet, 50 MG PO Q8H PRN for PAIN Prescribed by: SARI MCKEON on 01/06/191904 Tramadol HCl 50 Mg Tablet, 50 MG PO QID Prescribed by: CHER VIGIL on 03/10/19 0203 Tramadol HCl 50 Mg Tablet, 50 MG PO Q6H PRN for PAIN-MODERATE (5-7) Prescribed by: WALTER NAVARRETE on 11/11/19 1047 Tramadol HCl 50 Mg Tablet, 50 MG PO Q6H PRN for PAIN Prescribed by: RIGOBERTO GONZALES on 02/20/20 155 Patient Home Medication List Home Medication List Reviewed: Yes Review of Systems Review of Systems Constitutional: no symptoms reported Eyes: No Symptoms Reported Ears: No Symptoms Reported Nose: no symptoms reported Mouth: see HPI Throat: no symptoms reported Respiratory: no symptoms reported Cardiovascular: no symptoms reported Gastrointestinal: no symptoms reported Musculoskeletal: no symptoms reported Skin: no symptoms reported Neurological: No Symptoms Reported Hematologic/Lymphatic: No Symptoms Reported Immunological/Allergic: no symptoms reported Past Nkxcmsz-Sqsixc-Eejagt Hx Patient Social History Drug of Choice: THC Type Used: Cigarettes 2nd Hand Smoke Exposure: Yes Recent Hopitalizations: No Immunizations Up To Date Tetanus Booster (TDap): Unknown Seasonal Allergies Seasonal Allergies: No Past Medical History Surgeries: No Respiratory: Yes Asthma Cardiac: No Neurological: Yes (BELLS PALSY) Neuropathy Genitourinary: Yes Kidney Stones Gastrointestinal: Yes Pancreatitis Musculoskeletal: Yes Chronic Back Pain Endocrine: Yes Diabetes, Non-Insulin dep HEENT: Yes (CHRONIC DENTAL ISSUES/CARIES) Cancer: No Psychosocial: Yes Depression Integumentary: No Blood Disorders: No Adverse Reaction/Blood Tranf: No Physical Exam Vital Signs Vital Signs - First Documented 11/27/20 11:32 Temp 36.5 Pulse 87 Resp 16 B/P (MAP) 119/84 (96) Pulse Ox 96 O2 Delivery Room Air Height, Weight, BMI Height: 6'4.00" Weight: 250lbs. oz. 113.072502pn; 30.00 BMI Method:Stated General Appearance: WD/WN, no apparent distress Eyes: bilateral eye normal inspection, bilateral eye PERRL Ears: bilateral ear auricle normal, bilateral ear canal normal Nose: normal inspection; No discharge Mouth/Throat: No normal mouth inspection (white patches left buccal region ); pharynx normal, dental tenderness (left lower gumline/teeth); No excessive drooling, No mandibular swelling, No maxillary swelling, No trismus; other (Broken, rotted teeth apx #17-22, no gingival swelling) Neck: full range of motion, supple, normal inspection; No lymphadenopathy (R), No lymphadenopathy (L) Cardiovascular: normal peripheral pulses, regular rate, rhythm, no gallop Respiratory: lungs clear, normal breath sounds, no respiratory distress Neurologic/Psychiatric: no motor/sensory deficits, alert, normal mood/affect, oriented x 3 Skin: normal color, warm/dry Progress/Results/Core Measures Results/Orders My Orders Orders - MEAGAN ALMEIDA APRN Ketorolac Injection (Toradol Injection) (11/27/20 12:00) Progress Progress Note : Progress Note Patient examined and in no acute distress. Given Rx. for Doxycycline as he has severe gingival disease with multiple broken/rotted teeth. Has allergies to PCN and Clindamycin. He is to follow up with [facility]. Given Toradol 60mg IM for pain. Reviewed discharge POC and he is agreeable with plan. Departure Impression Primary Impression: Dental caries Disposition: 01 HOME, SELF-CARE Condition: Improved Departure-Patient Inst. Decision time for Depature: 12:09 Referrals: [facility] (PCP) Primary Care Physician ELOY MCCLURE (Family) Primary Care Physician Patient Instructions: Fractured Tooth (DC), Dental Pain Add. Discharge Instructions: Plan: 1. Use warm salt water rinses 3-4x per day. 2. Take antibiotics as directed and complete full course. Avoid direct sunlight while taking as this can cause severe lim. 3. Follow up with [facility] to get a new meter and have your mouth reassessed. 4. Use Tylenol or Ibuprofen as needed for pain. May use Ibuprofen 600mg by mouth every 6 hours. Avoid using for more than a couple days. 5. Return for any new, concerning, or worsening symptoms. All discharge instructions reviewed with patient and/or family. Voiced understanding. Scripts Doxycycline Hyclate (Doxycycline Hyclate) 100 Mg Tablet 100 MG PO BID for 7 Days, #14 TAB 0 Refills Prov: MEAGAN ALMEIDA CLOTH PRESSER 11/27/20 MEAGAN ALMEIDA CLOTH PRESSER Nov 27, 2020 12:04
== END 2020-11-27 12:09 | disposition home or self-care (01) ==
LOC: EDUNIT# 10:49 → ER 10:50
DX: K02.9 Dental caries, unspecified (principal); J45.909 Unspecified asthma, uncomplicated; G89.29 Other chronic pain; M54.9 Dorsalgia, unspecified; E11.9 Type 2 diabetes mellitus without complications; Z77.22 Contact with and (suspected) exposure to environmental tobacco smoke (acute) (chronic); Z79.84 Long term (current) use of oral hypoglycemic drugs; Z79.891 Long term (current) use of opiate analgesic; Z79.899 Other long term (current) drug therapy
CPT/HCPCS: 99284

== ENCOUNTER → 2020-11-27 | Outpatient (CLI) | payer SELFPAY ==
[~2020-11-27] MED LIST changes: +ACHD5005 PO; +DOXY100T2 PO; +GLBR2.5T PO; -GLYB2.5T4 PO; +ONDA8TAB13 PO; +RT-ALBUTEROL SULF 2.5 MG/3 ML PRE-MIX VIAL INH ONE; +TMSL.4C PO
== END ==
LOC: RT 09:30
PROVIDERS: ATTEND Nurse Practitioner Family
DX: J45.20 Mild intermittent asthma, uncomplicated (principal)
CPT/HCPCS: 94060; 94726; 94729

== ENCOUNTER 2021-06-17 18:25 | Inpatient (IN) | payer SELFPAY ==
[~2021-06-17] VITALS: Ht 190 cm; Wt 100.7 kg
[~2021-06-17 18:25] MED LIST changes: +CLIN-144 PO; -CLIN300C12 PO; +DOXY100T2 PO; -SULF1TAB35 PO; +SULF1TAB38 PO
--- NOTE | 2021-06-17 20:37 | ED Lower Extremity ---
General Chief Complaint: Lower Extremity Stated Complaint: LEFT LEG PAIN Nursing Triage Note: pt arrives per POV w/ c/o bilateral foot pain. States that pain stabbing and radiates to calf Source: patient Allergies and Home Medications Allergies Coded Allergies: Penicillins (Unverified Allergy, Mild, 01/29/09) clindamycin (Verified Adverse Reaction, Unknown, 12/06/19) NAUSEA AND RASH Patient Home Medication List Cefuroxime Axetil (Cefuroxime) 250 Mg Tablet, 250 MG PO BID Prescribed by: WALTER NAVARRETE on 12/27/182034 Cefuroxime Axetil (Cefuroxime) 500 Mg Tablet, 500 MG PO BID Prescribed by: GUTIERREZ PHAN on 12/24/19 1128 Cephalexin (Cephalexin) 500 Mg Tablet, 500 MG PO QID Prescribed by: SARI MCKEON on 01/06/19 1905 Clindamycin HCl (Clindamycin HCl) 300 Mg Capsule, 300 MG PO QID Prescribed by: CHER VIGIL on 03/10/19 0203 Clindamycin HCl (Clindamycin HCl) 300 Mg Capsule, 300 MG PO TID Prescribed by: WALTER NAVARRETE on 11/11/19 1046 Doxycycline Hyclate (Doxycycline Hyclate) 100 Mg Tablet, 100 MG PO BID Prescribed by: MEAGAN ALMEIDA on 11/27/20 1203 Glyburide (Glyburide) 2.5 Mg Tablet, Unknown Dose PO, (Reported) Entered as Reported by: KONSTANTIN STALEY on 12/27/18 1925 Hydrocodone/Acetaminophen (Hydrocodone-Acetamin 5-325 mg) 1 Each Tablet, 1-2 EACH PO Q4-6 HOURS PRN for PAIN Prescribed by: GUTIERREZ PHAN on 07/06/20 0513 Lidocaine HCl (Lidocaine HCl Viscous) 15 Ml Solution, 1-2 ML MM [id number] Prescribed by: GUTIERREZ PHAN on 12/24/19 1128 Meloxicam (Mobic) 15 Mg Tablet, 15 MG PO DAILY Prescribed by: GUTIERREZ PHAN on 12/24/19 1128 Metformin HCl (Metformin HCl) 1,000 Mg Tablet, 1,000 MG PO BID, (Reported) Entered as Reported by: CHARI STALEY on 08/26/17 1714 Nystatin (Nystatin) 100,000 Unit/1 Ml Oral.susp, 4 ML PO QID Prescribed by: SARI MCKEON on 01/06/191904 Ondansetron (Ondansetron Odt) 4 Mg Tab.rapdis, 4 MG PO Q6H PRN for NAUSEA/VOMITING Prescribed by: RIGOBERTO GONZALES on 02/20/20 155 Ondansetron (Ondansetron Odt) 8 Mg Tab.rapdis, 8 MG PO Q6H Prescribed by: GUTIERREZ PHAN on 07/06/20 05 Pantoprazole Sodium (Pantoprazole Sodium) 40 Mg Tablet.dr, 40 MG PO DAILY Prescribed by: RIGOBERTO GONZALES on 02/20/20 155 Sulfamethoxazole/Trimethoprim (Bactrim Ds Tablet) 1 Each Tablet, 1 EACH PO BID Prescribed by: LU YOUNGER on 12/06/19 0935 Sulfamethoxazole/Trimethoprim (Bactrim Ds Tablet) 1 Each Tablet, 1 EACH PO BID Prescribed by: GUTIERREZ PHAN on 07/06/20 05 Tamsulosin HCl (Flomax) 0.4 Mg Cap, 0.4 MG PO DAILY Prescribed by: GUTIERREZ PHAN on 07/06/20 05 Tramadol HCl (Tramadol HCl) 50 Mg Tablet, 50 MG PO Q8H PRN for PAIN Prescribed by: SARI MCKEON on 01/06/191904 Tramadol HCl (Ultram) 50 Mg Tablet, 50 MG PO QID Prescribed by: CHER VIGIL on 03/10/19 0203 Tramadol HCl (Ultram) 50 Mg Tablet, 50 MG PO Q6H PRN for PAIN-MODERATE (5-7) Prescribed by: WALTER NAVARRETE on 11/11/19 1047 Tramadol HCl (Tramadol HCl) 50 Mg Tablet, 50 MG PO Q6H PRN for PAIN Prescribed by: RIGOBERTO GONZALES on 02/20/20 155 Past Cbutdtw-Ydlhji-Ftzwhm Hx Immunizations Up To Date Tetanus Booster (TDap): Unknown First/Initial COVID19 Vaccinat: unvaccinated Seasonal Allergies Seasonal Allergies: No Past Medical History Surgeries: No Respiratory: Yes Asthma Cardiac: No Neurological: Yes (BELL[place] PALSY) Neuropathy Genitourinary: Yes Kidney Stones Gastrointestinal: Yes Pancreatitis Musculoskeletal: Yes Chronic Back Pain Endocrine: Yes Diabetes, Non-Insulin dep HEENT: Yes (CHRONIC DENTAL ISSUES/CARIES) Cancer: No Psychosocial: Yes Depression Integumentary: No Blood Disorders: No Adverse Reaction/Blood Tranf: No Physical Exam Vital Signs Vital Signs - First Documented 06/17/21 20:19 Temp 36.5 Pulse 105 Resp 18 B/P (MAP) 112/77 (89) Pulse Ox 98 Capillary Refill : Less Than 3 Seconds Height, Weight, BMI Height: 6'4.00" Weight: 250lbs. oz. 113.244646yp; 28.00 BMI Method:Stated Progress/Results/Core Measures Results/Orders My Orders Orders - GUTIERREZ PHAN DO Cbc With Automated Diff (06/17/21 20:32) Comprehensive Metabolic Panel (06/17/21 20:32) Blood Culture (06/17/21 20:32) Sputum Culture (06/17/21 20:32) Urinalysis (06/17/21 20:32) Urine Culture (06/17/21 20:32) Protime With Inr (06/17/21 20:32) Partial Thromboplastin Time (06/17/21 20:32) Chest 1 View, Ap/Pa Only (06/17/21 20:32) Ed Iv/Invasive Line Start (06/17/21 20:32) Ed Iv/Invasive Line Start (06/17/21 20:32) Vital Signs Adult Sepsis Patie Q15M (06/17/21 20:32) O2 (06/17/21 20:32) Remove Rings In Anticipation O (06/17/21 20:32) Wound Culture (06/17/21 20:32) Lactic Acid Analyzer (06/17/21 20:32) Metronidazole 500mg/100ml Ivpb (Flagyl 5 (06/17/21 20:45) Cefepime Injection (Maxipime Injection) (06/17/21 20:45) Vancomycin Injection (Vancomycin Injecti (06/17/21 20:45) Accucheck Stat ONCE (06/17/21 20:32) Alcohol (06/17/21 20:32) Bnp Tha (06/17/21 20:32) Creatine Kinase (06/17/21 20:32) Creatine Kinase Mb (06/17/21 20:32) Hs C Reactive Protein (06/17/21 20:32) Fibrin Degradation Products (06/17/21 20:32) Drug Screen Stat (Urine) (06/17/21 20:32) Magnesium (06/17/21 20:32) Procalcitonin (Pct) (06/17/21 20:32) Erythrocyte Sedimentation Rate (06/17/21 20:32) Myoglobin Serum (06/17/21 20:32) Foot, Left, 3 Views (06/17/21 20:32) Foot, Right, 3 View (06/17/21 20:32) LDH (06/17/21 20:32) Covid 19 Inhouse Test (06/17/21 20:32) Influenza A And B By Pcr (06/17/21 20:32) Isolation Central Supply Req (06/17/21 20:32) Vital Signs/I&O 06/17/21 20:19 Temp 36.5 Pulse 105 Resp 18 B/P (MAP) 112/77 (89) Pulse Ox 98 Blood Pressure Mean: 89 Departure Departure-Patient Inst. Referrals: [facility] (PCP) Primary Care Physician ELOY MCCLURE (Family) Primary Care Physician GUTIERREZ PHAN DO Jun 17, 2021 20:37
[2021-06-17] MEDS ORDERED: metroNIDAZOLE 500MG/100ML IVPB 100 ML IV ONE (20:45)
[2021-06-17] MEDS ORDERED: CEFEPIME INJECTION 1,000 MG in NS (IVPB) 50 ML IV ONE (20:45)
[2021-06-17] MEDS ORDERED: ENOXAPARIN 100 MG/1 ML (LOVENOX) SYR SC ONE (20:45)
[2021-06-17] MEDS ORDERED: VANCOMYCIN INJECTION 1,000 MG in NS (IVPB) 250 ML IV ONE (20:45)
[2021-06-17 21:04] LABS: BASOPHILS # (AUTO) 0.1 10^3/uL (0.0-0.1); BASOPHILS % (AUTO) 1 % (0-10); EOSINOPHILS # (AUTO) 0.2 10^3/uL (0.0-0.3); EOSINOPHILS % (AUTO) 2 % (0-10); HEMATOCRIT 45 % (40-54); HEMOGLOBIN 15.6 g/dL (13.3-17.7); LYMPHOCYTES # (AUTO) 2.1 10^3/uL (1.0-4.0); LYMPHOCYTES % (AUTO) 19 % (12-44); MEAN CORPUSCULAR HEMOGLOBIN 31 pg (25-34); MEAN CORPUSCULAR HGB CONC 35 g/dL (32-36); MEAN CORPUSCULAR VOLUME 88 fL (80-99); MEAN PLATELET VOLUME 10.3 fL (9.0-12.2); MONOCYTES # (AUTO) 1.2 10^3/uL (0.0-1.0); MONOCYTES % (AUTO) 11 % (0-12); NEUTROPHILS # (AUTO) 7.7 10^3/uL (1.8-7.8); NEUTROPHILS % (AUTO) 68 % (42-75); PLATELET COUNT 254 10^3/uL (130-400); WHITE BLOOD COUNT 11.4 10^3/uL (4.3-11.0)
--- NOTE | 2021-06-17 21:12 | Diagnostic Imaging Report ---
INDICATION: Chest pain COMPARISON: None. FINDINGS: Single view of the chest demonstrates clear lungs bilaterally. The heart is normal. There is no pneumothorax. The osseous structures normal. IMPRESSION: Negative chest. Dictated by: Dictated on workstation # [id number]
[2021-06-17 21:15] LABS: FIBRIN DEGRADATION PRODUCTS 0.54 UG/ML (0.00-0.49)
[2021-06-17 21:26] LABS: ALANINE AMINOTRANSFERASE 15 U/L (0-55); ALBUMIN 4.1 GM/DL (3.2-4.5); ALKALINE PHOSPHATASE 86 U/L (40-136); BILIRUBIN,TOTAL 1.2 MG/DL (0.1-1.0); BUN/CREATININE RATIO 12; CALCIUM 9.4 MG/DL (8.5-10.1); CARBON DIOXIDE 21 MMOL/L (21-32); CHLORIDE 98 MMOL/L (98-107); CREATINE KINASE 92 U/L (30-200); CREATININE SERUM 0.75 MG/DL (0.60-1.30); GFR ESTIMATED 115; GLUCOSE 345 MG/DL (70-105); MAGNESIUM 1.9 MG/DL (1.6-2.4); POTASSIUM 3.7 MMOL/L (3.6-5.0); SODIUM 134 MMOL/L (135-145); TOTAL PROTEIN 7.8 GM/DL (6.4-8.2)
[2021-06-17 21:27] LABS: BILIRUBIN,URINE NEGATIVE (NEGATIVE); CLARITY,URINE CLEAR; COLOR,URINE YELLOW; GLUCOSE, URINE (UA) 3+ (NEGATIVE); KETONES,URINE 1+ (NEGATIVE); LEUKOCYTE ESTERASE ,URINE NEGATIVE (NEGATIVE); NITRITE,URINE NEGATIVE (NEGATIVE); PROTEIN,URINE NEGATIVE (NEGATIVE)
[2021-06-17 21:29] LABS: ERYTHROCYTE SEDIMENTATION RATE 29 MM/HR (0-15)
[2021-06-17 21:36] LABS: AMORPHOUS SEDIMENT,UR RARE AMOR URATES /LPF; BACTERIA,URINE NEGATIVE /HPF; WBC,URINE RARE /HPF
--- NOTE | 2021-06-17 21:42 | Diagnostic Imaging Report ---
INDICATION: Left foot pain COMPARISON: None. FINDINGS: Three views of the left foot demonstrate no fracture or dislocation. Articular surfaces are normal. There is no unexpected radiopaque foreign body. No bony erosion. IMPRESSION: No fracture or dislocation. Dictated by: Dictated on workstation # [id number]
--- NOTE | 2021-06-17 21:43 | Diagnostic Imaging Report ---
INDICATION: Right foot pain. COMPARISON: None. FINDINGS: Two views of the right foot demonstrate no fracture or dislocation. Articular surfaces are normal. No bony erosion seen. No unexpected radiopaque foreign body. IMPRESSION: Negative right foot. Dictated by: Dictated on workstation # [id number]
[2021-06-17 21:45] LABS: CREATINE KINASE MB 2.5 NG/ML (<6.6)
[2021-06-17 21:50] LABS: AMPHETAMINE SCREEN, URINE NEGATIVE (NEGATIVE); BARBITURATE SCREEN URINE NEGATIVE (NEGATIVE); BENZODIAZEPINES SCREEN URINE NEGATIVE (NEGATIVE); CANNABINOID SCREEN, URINE POSITIVE (NEGATIVE); COCAINE SCREEN URINE NEGATIVE (NEGATIVE); METHADONE STAT NEGATIVE (NEGATIVE); METHAMPHETAMINE SCREEN URINE S NEGATIVE (NEGATIVE); OPIATE SCREEN URINE NEGATIVE (NEGATIVE); OXYCODONE STAT NEGATIVE (NEGATIVE); PROPOXYPHENE STAT NEGATIVE (NEGATIVE); TRICYCLIC ANTIDEPRESSANTS SCRE NEGATIVE (NEGATIVE)
[2021-06-18] MEDS ORDERED: NS IV 1000 ML 1,000 ML ONE (01:25)
[2021-06-18] MEDS ORDERED: fentaNYL INJ 100 MCG/2 ML AMP IV PRN (01:30)
[2021-06-18] MEDS ORDERED: ONDANSETRON 4 MG/2 ML (SDV) Z0FRAN IVP PRN (01:30)
[2021-06-18] MEDS: NS IV 1000 ML 1,000 ML IV SCH ×5 (01:36→15:07)
[2021-06-18] MEDS: metroNIDAZOLE 500 MG/100 ML IVPB (PRE-MIX) IV SCH ×2 (01:57→15:05)
[2021-06-18] MEDS: ACETAMINOPHEN 500 MG TAB (TYLENOL) PO PRN ×2 (02:00→09:50)
[2021-06-18] MEDS: VANCOMYCIN 1 GM/NS 250 ML IVPB IV SCH ×4 (03:22→05:06)
[2021-06-18 04:00] VITALS: BP 111/66
[2021-06-18] MEDS: CEFEPIME 1,000 MG/NS 50 ML IVPB IV SCH ×8 (04:31→21:35)
[2021-06-18 05:38] LABS: BASOPHILS # (AUTO) 0.1 10^3/uL (0.0-0.1); BASOPHILS % (AUTO) 1 % (0-10); EOSINOPHILS # (AUTO) 0.2 10^3/uL (0.0-0.3); EOSINOPHILS % (AUTO) 3 % (0-10); HEMATOCRIT 41 % (40-54); HEMOGLOBIN 14.1 g/dL (13.3-17.7); LYMPHOCYTES # (AUTO) 2.3 10^3/uL (1.0-4.0); LYMPHOCYTES % (AUTO) 27 % (12-44); MEAN CORPUSCULAR HEMOGLOBIN 30 pg (25-34); MEAN CORPUSCULAR HGB CONC 34 g/dL (32-36); MEAN CORPUSCULAR VOLUME 88 fL (80-99); MEAN PLATELET VOLUME 10.5 fL (9.0-12.2); MONOCYTES # (AUTO) 0.9 10^3/uL (0.0-1.0); MONOCYTES % (AUTO) 11 % (0-12); NEUTROPHILS # (AUTO) 5.1 10^3/uL (1.8-7.8); NEUTROPHILS % (AUTO) 58 % (42-75); PLATELET COUNT 212 10^3/uL (130-400); WHITE BLOOD COUNT 8.7 10^3/uL (4.3-11.0)
[2021-06-18 05:52] LABS: ALBUMIN 3.4 GM/DL (3.2-4.5); POTASSIUM 3.5 MMOL/L (3.6-5.0)
[2021-06-18 05:53] LABS: CALCIUM 8.6 MG/DL (8.5-10.1)
[2021-06-18 05:54] LABS: TOTAL PROTEIN 6.8 GM/DL (6.4-8.2)
[2021-06-18 05:56] LABS: BILIRUBIN,TOTAL 1.1 MG/DL (0.1-1.0)
[2021-06-18 05:58] LABS: CREATININE SERUM 0.67 MG/DL (0.60-1.30)
[2021-06-18] MEDS: inSUlin ASPART (NovoLOG) 1 UNIT/0.01 ML (CHARGE PER UNIT) SC SCH ×4 (06:08→21:36)
[2021-06-18 08:00] VITALS: BP 118/65
[2021-06-18] MEDS ORDERED: ENOXAPARIN 100 MG/1 ML (LOVENOX) SYR SC NR (09:00)
--- NOTE | 2021-06-18 10:31 | Diagnostic Imaging Report ---
PROCEDURE: US left lower extremity venous. TECHNIQUE: Multiple real-time grayscale images were obtained over the left lower extremity in various projections. Additional duplex Doppler and color Doppler images were also obtained. INDICATION: Nonhealing foot ulcer. FINDINGS: The left common femoral, superficial femoral, popliteal veins and tibial veins demonstrate normal response to compression, augmentation, and Valsalva. There are no abnormal left lower extremity fluid collections or masses. IMPRESSION: No evidence of deep venous thrombosis in the left lower extremity. Dictated by: Dictated on workstation # [id number]
[2021-06-18] MEDS ORDERED: GLIM4TAB56 PO (12:23)
[2021-06-18] MEDS ORDERED: IBUP-2473 PO (12:23)
[2021-06-18] MEDS ORDERED: RT-ALBUINH IH (12:23)
[2021-06-18] MEDS ORDERED: METF-478 PO (12:23)
[2021-06-18] MEDS ORDERED: BUDE10.2 IH (12:23)
[2021-06-18] MEDS ORDERED: ATOR10TA66 PO (12:23)
[2021-06-18] MEDS ORDERED: INSU100I29 SQ (12:23)
[2021-06-18 12:53] VITALS: BP 100/59
[2021-06-18] MEDS: VANCOMYCIN 1250 MG/NS 250 ML IVPB IV SCH ×4 (13:06→19:17)
--- NOTE | 2021-06-18 15:43 | History & Physical ---
HPI History of Present Illness: 41 yo M that presented to ER with worsening redness and pain in LLE. Patient is a known poorly controlled DM that has been off his medications for several months prior to 2 weeks ago. States that he recently reestablished with Marty Reynaga and got restarted on meds. He came into the ER because his whole leg was starting to hurt him. He previously was being seen by Dr Pitt at [facility] for wound care. Source: patient Exam Limitations: no limitations Date seen by provider: Jun 18, 2021 Time Seen by Provider: 11:00 Attending Physician Manoj Gold MD PCP [facility], [facility] Consult Date of Admission Jun 18, 2021 at 00:00 Home Medications Home Medications Reviewed patient Home Medication Reconciliation performed by pharmacy medication reconciliations jewelry technician and/or nursing. Patients Allergies have been reviewed. Allergies Coded Allergies: Penicillins (Unverified Allergy, Mild, 01/29/09) clindamycin (Verified Adverse Reaction, Unknown, 12/06/19) NAUSEA AND RASH OHR-Qzacut-Ltqqit Hx Patient Social History Drug of Choice: THC Smoking Status: Current Everyday Smoker 2nd Hand Smoke Exposure: Yes Recent Hopitalizations: No Alcohol Use?: No Tobacco type used: Cigars Have you traveled recently?: Yes Immunizations Up To Date Tetanus Booster (TDap): Unknown Influenza Vaccine Up-to-Date: No; Not Current First/Initial COVID19 Vaccinat: unvaccinated Past Medical History IDDM with neuropathy HLD Family Medical History Significant Family History: Diabetes Review of Systems ([facility]) Constitutional: No chills, No fever EENTM: no symptoms reported; No nose congestion, No nose pain, No throat pain, No throat swelling Respiratory: no symptoms reported; No cough, No dyspnea on exertion, No short of breath Cardiovascular: no symptoms reported; No chest pain; edema; No palpitations Gastrointestinal: No abdominal pain, No constipation; diarrhea; No loss of appetite, No nausea, No vomiting Genitourinary: no symptoms reported; No dysuria, No frequency, No hematuria Musculoskeletal: joint pain, joint swelling Skin: other (cellulitis LLE) Psychiatric/Neurological: Numbness, Paresthesia Reviewed Test Results Reviewed Test Results Lab Laboratory Tests Test 06/17/21 20:50 06/17/21 21:21 06/17/21 21:22 06/18/21 05:17 Range/Units White Blood Count 11.4 H 8.7 4.3-11.0 10^3/uL Red Blood Count 5.08 4.66 4.30-5.52 10^6/uL Hemoglobin 15.6 14.1 13.3-17.7 g/dL Hematocrit 45 41 40-54 % Mean Corpuscular Volume 88 88 80-99 fL Mean Corpuscular Hemoglobin 31 30 25-34 pg Mean Corpuscular Hemoglobin Concent 35 34 32-36 g/dL Red Cell Distribution Width 12.0 12.2 10.0-14.5 % Platelet Count 254 212 130-400 10^3/uL Mean Platelet Volume 10.3 10.5 9.0-12.2 fL Immature Granulocyte % (Auto) 0 1 % Neutrophils (%) (Auto) 68 58 42-75 % Lymphocytes (%) (Auto) 19 27 12-44 % Monocytes (%) (Auto) 11 11 0-12 % Eosinophils (%) (Auto) 2 3 0-10 % Basophils (%) (Auto) 1 1 0-10 % Neutrophils # (Auto) 7.7 5.1 1.8-7.8 10^3/uL Lymphocytes # (Auto) 2.1 2.3 1.0-4.0 10^3/uL Monocytes # (Auto) 1.2 H 0.9 0.0-1.0 10^3/uL Eosinophils # (Auto) 0.2 0.2 0.0-0.3 10^3/uL Basophils # (Auto) 0.1 0.1 0.0-0.1 10^3/uL Immature Granulocyte # (Auto) 0.1 0.1 0.0-0.1 10^3/uL Erythrocyte Sedimentation Rate 29 H 0-15 MM/HR Prothrombin Time 14.0 12.2-14.7 SEC INR Comment 1.0 0.8-1.4 Activated Partial Thromboplast Time 31 24-35 SEC D-Dimer 0.54 H 0.00-0.49 UG/ML Sodium Level 134 L 135 135-145 MMOL/L Potassium Level 3.7 3.5 L 3.6-5.0 MMOL/L Chloride Level 98 103 98-107 MMOL/L Carbon Dioxide Level 21 21 21-32 MMOL/L Anion Gap 15 H 11 5-14 MMOL/L Blood Urea Nitrogen 9 10 7-18 MG/DL Creatinine 0.75 0.67 0.60-1.30 MG/DL Estimat Glomerular Filtration Rate 115 131 BUN/Creatinine Ratio 12 15 Glucose Level 345 H 321 H 70-105 MG/DL Lactic Acid Level 1.43 0.50-2.00 MMOL/L Calcium Level 9.4 8.6 8.5-10.1 MG/DL Corrected Calcium 9.3 9.1 8.5-10.1 MG/DL Magnesium Level 1.9 1.6-2.4 MG/DL Total Bilirubin 1.2 H 1.1 H 0.1-1.0 MG/DL Aspartate Amino Transf (AST/SGOT) 11 9 5-34 U/L Alanine Aminotransferase (ALT/SGPT) 15 11 0-55 U/L Alkaline Phosphatase 86 70 40-136 U/L Lactate Dehydrogenase 194 125-220 U/L Total Creatine Kinase 92 30-200 U/L Creatine Kinase MB 2.5 <6.6 NG/ML Myoglobin 38.5 10.0-92.0 NG/ML C-Reactive Protein High Sensitivity 8.50 H 0.00-0.50 MG/DL B-Type Natriuretic Peptide < 10.0 <100.0 PG/ML Total Protein 7.8 6.8 6.4-8.2 GM/DL Albumin 4.1 3.4 3.2-4.5 GM/DL Procalcitonin 0.04 <0.10 NG/ML Serum Alcohol < 10 <10 MG/DL Urine Color YELLOW Urine Clarity CLEAR Urine pH 6.0 5-9 Urine Specific [place] 1.020 1.016-1.022 Urine Protein NEGATIVE NEGATIVE Urine Glucose (UA) 3+ H NEGATIVE Urine Ketones 1+ H NEGATIVE Urine Nitrite NEGATIVE NEGATIVE Urine Bilirubin NEGATIVE NEGATIVE Urine Urobilinogen 2.0 < = 1.0 MG/DL Urine Leukocyte Esterase NEGATIVE NEGATIVE Urine RBC (Auto) NEGATIVE NEGATIVE Urine RBC NONE /HPF Urine WBC RARE /HPF Urine Crystals PRESENT H /LPF Urine Amorphous Sediment RARE FIDEILNA URATES H /LPF Urine Bacteria NEGATIVE /HPF Urine Casts NONE /LPF Urine Mucus NEGATIVE /LPF Urine Culture Indicated NO Urine Opiates Screen NEGATIVE NEGATIVE Urine Oxycodone Screen NEGATIVE NEGATIVE Urine Methadone Screen NEGATIVE NEGATIVE Urine Propoxyphene Screen NEGATIVE NEGATIVE Urine Barbiturates Screen NEGATIVE NEGATIVE Ur Tricyclic Antidepressants Screen NEGATIVE NEGATIVE Urine Phencyclidine Screen NEGATIVE NEGATIVE Urine Amphetamines Screen NEGATIVE NEGATIVE Urine Methamphetamines Screen NEGATIVE NEGATIVE Urine Benzodiazepines Screen NEGATIVE NEGATIVE Urine Cocaine Screen NEGATIVE NEGATIVE Urine Cannabinoids Screen POSITIVE H NEGATIVE Influenza Type A (RT-PCR) Not Detected Not Detecte Influenza Type B (RT-PCR) Not Detected Not Detecte SARS-CoV-2 RNA (RT-PCR) Not Detected Not Detecte Test 06/18/21 06:02 06/18/21 11:58 Range/Units Glucometer 360 H 250 H 70-110 MG/DL Physical Exam-(CHC) Physical Exam Vital Signs VS - Last 72 Hours, by Label 06/17/21 06/18/21 06/18/21 06/18/21 20:19 00:45 01:35 04:00 Temp 36.5 36.6 Pulse 105 102 86 Resp 18 20 B/P (MAP) 112/77 (89) 111/66 (81) Pulse Ox 98 97 O2 Delivery Room Air Room Air 06/18/21 06/18/21 06/18/21 06/18/21 07:00 08:00 08:00 12:53 Temp 35.6 36.7 Pulse 89 84 75 Resp 18 18 B/P (MAP) 118/65 (82) 100/59 (73) Pulse Ox 97 97 O2 Delivery Room Air Room Air Room Air 06/18/21 12:54 Pulse 84 Capillary Refill : Less Than 3 Seconds General Appearance: WD/WN, no apparent distress HEENT: PERRL/EOMI Neck: non-tender, full range of motion, supple Respiratory: chest non-tender, lungs clear, normal breath sounds, no respiratory distress, no accessory muscle use Cardiovascular: normal peripheral pulses, regular rate, rhythm, no murmur Gastrointestinal: normal bowel sounds, non tender; No guarding, No rebound, No tenderness Extremities: normal range of motion, pedal edema (1+ pitting edema LLE), swelling, other (Left foot with erythema and ttp up to mid thigh on LLE) Neurologic/Psychiatric: sculpture instructor II-XII nml as tested, alert, normal mood/affect, oriented x 3 Lymphatic: no adenopathy Assessment/Plan Assessment/Plan Admission Status: Inpatient Order (span 2 midnights) Reason for Inpatient Admission: Dilma needs IV anti biotics and consultation as he is high risk of developing sepsis and osteomyelitis (1) Cellulitis Status: Acute Assessment & Plan: - Started on IV antibiotics, Doppler neg for DVT Qualifiers: Qualified Codes: L03.116 - Cellulitis of left lower limb (2) Diabetic foot ulcer Status: Acute Assessment & Plan: - Wound consult placed Qualifiers: Qualified Codes: E11.621 - Type 2 diabetes mellitus with foot ulcer; L97.521 - Non-pressure chronic ulcer of other part of left foot limited to breakdown of skin (3) Insulin dependent diabetes mellitus with complications Status: Chronic Assessment & Plan: - A1c pending, home insulin restarted, SSI, Accucheck ACHS, add daily ASA (4) 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
[2021-06-18 16:00] VITALS: BP 120/71
[2021-06-18] MEDS: ASPIRIN E.C. 81 MG (ECOTRIN) TAB PO SCH (16:43)
--- NOTE | 2021-06-18 17:30 | Wound Care Assessment ---
Wound Care Assessment Date Seen by Provider: Jun 18, 2021 Time Seen by Provider: 17:22 Chief Complaint Bilateral diabetic foot ulcers HPI This pleasant 41 yo CM presents to the hospital with bilateral diabetic foot ulcers. He states that he has had poor diabetic control for some time (pre-admit FSBS >300). FSBS quite elevated upon admit. He has been struggling with bilateral 5th MTH DFU on the plantar surface for >1 [address] has [address] Dr[address] Pitt in the past. In the last 2 weeks he has noted an increase in pain, redness and swelling. Upon admit, he was started appropriately on Vanc, Flagyl and Cefepime. Culture was obtained prior to initiation of antibiotic therapy. See his wound assessment below. In addition to his poorly control type 2 diabetes, he is a 26 pack year smoker and also smokes marijuana. We discussed the effects of smoking on wound healing at length. Vick has elevated CRP (consistent with infectio n). When looking at his wound initially I was unable to probe with Q tip much. But after removal of bullae with use of forceps I was able to probe from the ulcer on the plantar surface all the way to the wound on the anterior surface. There was purulent drainage with fluctuance noted anteriorly as well. Bilateral plain films without evidence of osteomyelitis. I do have significant concern for deep space infection on the left. I do think surgical consult is warranted for their opinion on need for I&D. I do think despite Vick's age, arterial evaluation is warranted with his risk factors and the cyanosis noted at his left 5th digit as well. I will order arterial dopplers bilaterally. Consult with Dr. Alvarado or Carlos would be warranted if abnormal. Low threshold for checking MRI if patient fails to improve. Past Medical History: Admits Diabetes Type II Smoking Status: Current Everyday Smoker (1ppd for 26 years) Recreational Drug Use: Yes (Marijuana) Review of Systems Neurological: Numbness (diabetic neuropathy) Exam Vital Signs Date Time Temp Pulse Resp B/P (MAP) Pulse Ox O2 Delivery O2 Flow Rate FiO2 06/18/21 16:00 36.2 74 18 120/71 (87) 97 Room Air Capillary Refill : Less Than 3 Seconds General Appearance: WD/WN, no apparent distress, obese Neck: full range of motion Respiratory: no respiratory distress, no accessory muscle use Extremities: normal range of motion, pedal edema Neurologic/Psychiatric: alert, normal mood/affect, oriented x 3 Skin: warm/dry Skin Problem Location: lower extremities Skin Character: abscess (Left anterior foot (overlying 5th MTH)), bullous (Bull ae deroofed), drainage (foul smelling, purulent drainage (copious)), erythema (Anterior foot), other (Cyanotic discoloration of left 5th digit) Wound assessment: 1. WG3 Left 5MTH diabetic foot ulcer: The epithelialization is none, there is tunneling from the plantar surface at the 5MTH to the anterior surface of the foot with forceps, drainage is large and purulent with foul smell, granulation is none, necrotic is large with slough and eschar, the margins show epibole. There is a cyanotic discoloration to the 5th digit upon deroofing of the bullae that is concerning for underlying arterial disease. There is significant erythema, edema and induration in periwound. 0.5x0.5x3.0cm. (Measurements for the plantar wound extending depth all the way to anterior wound) 2. WG2 R. 5MTH diabetic foot ulcer: The epithelialization is none, There is no tunneling or undermining. Drainage is large and serosanguinous. Granulation is none, necrotic is large and slough, the wound margins show epibole. 0.5x0.5x1.0cm. Signficant callosity in the periwound Results Laboratory Tests 06/17/21 20:50: White Blood Count 11.4H, Red Blood Count 5.08, Hemoglobin 15.6, Hematocrit 45, Mean Corpuscular Volume 88, Mean Corpuscular Hemoglobin 31, Mean Corpuscular H emoglobin Concent 35, Red Cell Distribution Width 12.0, Platelet Count 254, Mean Platelet Volume 10.3, Immature Granulocyte % (Auto) 0, Neutrophils (%) (Auto) 68, Lymphocytes (%) (Auto) 19, Monocytes (%) (Auto) 11, Eosinophils (%) (Auto) 2, Basophils (%) (Auto) 1, Neutrophils # (Auto) 7.7, Lymphocytes # (Auto) 2.1, Monocytes # (Auto) 1.2H, Eosinophils # (Auto) 0.2, Basophils # (Auto) 0.1, Immature Granulocyte # (Auto) 0.1, Erythrocyte Sedimentation Rate 29H, Prothro mbin Time 14.0, INR Comment 1.0, Activated Partial Thromboplast Time 31, D-Dimer 0.54H, Sodium Level 134L, Potassium Level 3.7, Chloride Level 98, Carbon Dioxide Level 21, Anion Gap 15H, Blood Urea Nitrogen 9, Creatinine 0.75, Estimat Glomerular Filtration Rate 115, BUN/Creatinine Ratio 12, Glucose Level 345H, Lactic Acid Level 1.43, Calcium Level 9.4, Corrected Calcium 9.3, Magnesium Level 1.9, Total Bilirubin 1.2H, Aspartate Amino Transf (AST/SGOT) 11, Alanine Aminotransferase (ALT/SGPT) 15, Alkaline Phosphatase 86, Lactate Dehydrogenase 194, Total Creatine Kinase 92, Creatine Kinase MB 2.5, Myoglobin 38.5, C- Reactive Protein High Sensitivity 8.50H, B-Type Natriuretic Peptide < 10.0, Total Protein 7.8, Albumin 4.1, Procalcitonin 0.04, Serum Alcohol < 10 06/17/21 21:21: Urine Color YELLOW, Urine Clarity CLEAR, Urine pH 6.0, Urine Specific [place] 1.020, Urine Protein NEGATIVE, Urine Glucose (UA) 3+H, Urine Ketones 1+H, Urine Nitrite NEGATIVE, Urine Bilirubin NEGATIVE, Urine Urobilinogen 2.0, Urine Leukocyte Esterase NEGATIVE, Urine RBC (Auto) NEGATIVE, Urine RBC NONE, Urine WBC RARE, Urine Crystals PRESENTH, Urine Amorphous Sediment RARE FIDELINA URATESH, Urine Bacteria NEGATIVE, Urine Casts NONE, Urine Mucus NEGATIVE, Urine Culture Indicated NO, Urine Opiates Screen NEGATIVE, Urine Oxycodone Screen NEGATIVE, Urine Methadone Screen NEGATIVE, Urine Propoxyphene Screen NEGATIVE, Urine Barbiturates Screen NEGATIVE, Ur Tricyclic Antidepressants Screen NEGATIVE, Urine Phencyclidine Screen NEGATIVE, Urine Amphetamines Screen NEGATIVE, Urine Methamphetamines Screen NEGATIVE, Urine Benzodiazepines Screen NEGATIVE, Urine Cocaine Screen NEGATIVE, Urine Cannabinoids Screen POSITIVEH 06/17/21 21:22: Influenza Type A (RT-PCR) Not Detected, Influenza Type B (RT-PCR) Not Detected, SARS-CoV-2 RNA (RT-PCR) Not Detected 06/18/21 05:17: White Blood Count 8.7, Red Blood Count 4.66, Hemoglobin 14.1, Hematocrit 41, Mean Corpuscular Volume 88, Mean Corpuscular Hemoglobin 30, Mean Corpuscular Hemoglobin Concent 34, Red Cell Distribution Width 12.2, Platelet Count 212, Mean Platelet Volume 10.5, Immature Granulocyte % (Auto) 1, Neutrophils (%) (Auto) 58, Lymphocytes (%) (Auto) 27, Monocytes (%) (Auto) 11, Eosinophils (%) (Auto) 3, Basophils (%) (Auto) 1, Neutrophils # (Auto) 5.1, Lymphocytes # (Auto) 2.3, Monocytes # (Auto) 0.9, Eosinophils # (Auto) 0.2, Basophils # (Auto) 0.1, Immature Granulocyte # (Auto) 0.1, Sodium Level 135, Potassium Level 3.5L, Chloride Level 103, Carbon Dioxide Level 21, Anion Gap 11, Blood Urea Nitrogen 10, Creatinine 0.67, Estimat Glomerular Filtration Rate 131, BUN/Creatinine Ratio 15, Glucose Level 321H, Calcium Level 8.6, Corrected Calcium 9.1, Total Bilirubin 1.1H, Aspartate Amino Transf (AST/SGOT) 9, Alanine Aminotransferase (ALT/SGPT) 11, Alkaline Phosphatase 70, Total Protein 6.8, Albumin 3.4 06/18/21 06:02: Glucometer 360H 06/18/21 11:58: Glucometer 250H 06/18/21 16:52: Glucometer 223H Microbiology 06/17/21 Gram Stain, Resulted Pending 06/17/21 Wound Culture - Preliminary, Resulted Strep, Beta Hemolytic Group B Microbiology 06/17/21 Gram Stain, Resulted Pending 06/17/21 Wound Culture - Preliminary, Resulted Strep, Beta Hemolytic Group B Assessment/Plan/Dx Assessment: 1. Suspected Abscess with Deep Space Infection of left foot 2. Cellulitis left foot 3. Young Grade 3 diabetic foot ulcer left 5th metatarsal head 4. Young grade 2 diabetic foot ulcer right 5th metatarsal head 5. Poorly controlled DM2 Plan: 1. Agree with wound cultures, broad spectrum IV antibiotics (to transition to targeted therapy when sensitivities allow) 2. Agree with surgical consult to assess need for I&D vs. more aggressive debridement/amputation 3. Agree with need for improved glycemic control (defer to primary's capable hands) 4. Arterial ultrasound bilateral to rule out vascular compromise. Consult cardiology as indicated pending results. 5. Smoking Cessation advised 6. Cleanse wound twice daily with vashe (or similar wound cleanser) 7. Apply Aquacel Ag to ulcers bilaterally, cover with gauze, roller gauze and secure with medipore tape. Change twice daily. (Will need reevaluation of dressing post-operatively if surgeon does proceed with intervention). 8. Need for financial assistance counseling. Would appreciate assistance in procuring financial assistance for outpatient wound care continuation after he is discharged from hospital. 9. Low threshold for further imaging (MRI) on left with elevated CRP, ESR and depth/nature of ulcer. Will hold off for now and await surgeon's input. MOY DELGADO MD Jun 18, 2021 17:30
[2021-06-18] MEDS: LACTOBACILLUS ACIDOPHILUS (PROBIOTIC) CAPSULE PO SCH (18:04)
--- NOTE | 2021-06-18 19:07 | Progress Note-Pre Operative ---
Pre-Operative Progress Note H&P Reviewed The H&P was reviewed, patient examined and no changes noted. Date Seen by Provider: Jun 18, 2021 Time Seen by Provider: 19:00 Date H&P Reviewed: Jun 18, 2021 Time H&P Reviewed: 19:00 Pre-Operative Diagnosis: left 5th toe dibetic ulcer and ischemia JUAN DIANA MD Jun 18, 2021 19:07
--- NOTE | 2021-06-18 19:29 | CONSULTATION REPORT ---
DATE OF SERVICE: ATTENDING PRIMARY CARE PHYSICIAN: Dr. Marty Reynaga. ATTENDING PHYSICIAN: Dr. Ruby Gold. HISTORY OF PRESENT ILLNESS: The patient is a 41-year-old male who presented to the Emergency Department with pain and redness along the left fifth toe. He has a longstanding history of poorly controlled diabetes and has been off of his medications for several months. He has also seen Dr. Pitt in the past at [facility] for wound care of the left fifth toe. Wound care was consulted and there was significant ischemic changes along the left fifth toe as well as an overlying bulla along the plantar surface, which was opened and again with ischemic changes. This likely indicates a nonviable toe; however, our recommendations would be to proceed with debridement of the toe in the operating room and if the tissue appears to be nonviable, then proceed with an amputation of the left fifth toe. PAST MEDICAL HISTORY: Insulin-dependent diabetes, neuropathy, hyperlipidemia. PAST SURGICAL HISTORY: None. ALLERGIES: PENICILLIN, CLINDAMYCIN. MEDICATIONS: Albuterol 2 puffs q.4 hours p.r.n., Symbicort 2 puffs b.i.d., glimepiride 4 mg daily, detemir insulin 28 units b.i.d., metformin 500 mg b.i.d. SOCIAL HISTORY: Positive for smoke 20 pack years, positive for THC. FAMILY HISTORY: Noncontributory. VITAL SIGNS: Temperature 36.2, blood pressure 120/71, pulse 74, respirations 18, pulse ox 97% on room air. REVIEW OF SYSTEMS: This is a well-nourished male currently in no acute distress. He is not experiencing any shortness of breath or difficulty breathing. No chest pain, palpitations, diaphoresis. No nausea, vomiting. No diarrhea or constipation. No fever, chills, no recent inadvertent weight loss. All other review of systems negative. PHYSICAL EXAMINATION: CHEST: Expiratory wheezes bilaterally. HEART: Regular, no murmurs. EXTREMITIES: No lower extremity edema, negative Homans sign. Reduced capillary refill bilateral distal feet. HEENT: No scleral icterus. NECK: No cervical lymphadenopathy. ABDOMEN: Soft, nontender, nondistended. SKIN: Along the left fifth toe, there is a propeller purple coloration, which appears to be acute on chronic arterial insufficiency. He also does have a longstanding history of uncontrolled diabetes and smoker. LABORATORY DATA: WBC 8.7, hemoglobin 14.1, hematocrit 41, platelets 212. BUN 10, creatinine 0.67, blood glucose 223. ASSESSMENT AND PLAN: A 41-year-old male with left fifth digit diabetic plantar ulceration; however, ischemic changes, which likely reduce the viability of the toe and the recommendation is to proceed with debridement of the toe; however, if this tissue appears to be ischemic and nonviable, then we would proceed with an amputation of the left fifth toe. He will also need to proceed with medical compliance including control of his diabetes as well as smoking cessation or else he will have continued worsening peripheral vascular disease and further ischemic changes of bilateral lower extremities. Job ID: [id number] DocumentID: [id number] Dictated Date: 06/18/2021 18:54:52 Channeling Machine Runner Date: 06/18/2021 19:09:37 Dictated By: JUAN DIANA MD
[2021-06-18 20:00] VITALS: BP 118/69
[2021-06-18] MEDS: RT--FLUTICASONE/SALMETEROL 232-14 (AIRDUO RespiCLICK) IH SCH (21:16)
[2021-06-18] MEDS: AtorvaSTATin TABLET 10 MG TABLET PO SCH (21:35)
[2021-06-19] VITALS (13 sets, daily range): BP systolic 99–127; BP diastolic 60–79
[2021-06-19] MEDS: NS IV 1000 ML 1,000 ML IV SCH ×4 (00:56→17:09)
[2021-06-19] MEDS: metroNIDAZOLE 500 MG/100 ML IVPB (PRE-MIX) IV SCH ×2 (01:58→17:57)
[2021-06-19] MEDS ORDERED: TROUGH ORDER-PHARMACY XX NR (02:30)
[2021-06-19] MEDS: CEFEPIME 1,000 MG/NS 50 ML IVPB IV SCH ×8 (03:11→22:25)
[2021-06-19] MEDS: VANCOMYCIN 1250 MG/NS 250 ML IVPB IV SCH ×2 (03:54)
[2021-06-19 06:06] LABS: BASOPHILS # (AUTO) 0.1 10^3/uL (0.0-0.1); BASOPHILS % (AUTO) 1 % (0-10); EOSINOPHILS # (AUTO) 0.2 10^3/uL (0.0-0.3); EOSINOPHILS % (AUTO) 2 % (0-10); HEMATOCRIT 38 % (40-54); HEMOGLOBIN 13.2 g/dL (13.3-17.7); LYMPHOCYTES # (AUTO) 1.8 10^3/uL (1.0-4.0); LYMPHOCYTES % (AUTO) 21 % (12-44); MEAN CORPUSCULAR HEMOGLOBIN 31 pg (25-34); MEAN CORPUSCULAR HGB CONC 35 g/dL (32-36); MEAN CORPUSCULAR VOLUME 89 fL (80-99); MEAN PLATELET VOLUME 10.4 fL (9.0-12.2); MONOCYTES # (AUTO) 0.8 10^3/uL (0.0-1.0); MONOCYTES % (AUTO) 10 % (0-12); NEUTROPHILS # (AUTO) 5.7 10^3/uL (1.8-7.8); NEUTROPHILS % (AUTO) 66 % (42-75); PLATELET COUNT 209 10^3/uL (130-400); WHITE BLOOD COUNT 8.6 10^3/uL (4.3-11.0)
[2021-06-19 06:26] LABS: ALBUMIN 3.1 GM/DL (3.2-4.5); BILIRUBIN,TOTAL 0.6 MG/DL (0.1-1.0); CALCIUM 8.2 MG/DL (8.5-10.1); CREATININE SERUM 0.6 MG/DL (0.60-1.30); POTASSIUM 3.6 MMOL/L (3.6-5.0); TOTAL PROTEIN 5.9 GM/DL (6.4-8.2)
[2021-06-19] MEDS: inSUlin ASPART (NovoLOG) 1 UNIT/0.01 ML (CHARGE PER UNIT) SC SCH ×4 (06:38→21:20)
[2021-06-19] MEDS: ASPIRIN E.C. 81 MG (ECOTRIN) TAB PO SCH ×2 (08:20→09:13)
[2021-06-19] MEDS: LACTOBACILLUS ACIDOPHILUS (PROBIOTIC) CAPSULE PO SCH ×4 (08:20→17:57)
[2021-06-19] MEDS: RT--FLUTICASONE/SALMETEROL 232-14 (AIRDUO RespiCLICK) IH SCH ×2 (09:11→22:40)
--- NOTE | 2021-06-19 10:34 | Diagnostic Imaging Report ---
PROCEDURE: US Bilateral lower extremity arterial. TECHNIQUE: Multiple real-time grayscale images are obtained through both lower extremity arterial systems with color Doppler imaging and color Doppler spectral analysis. INDICATION: Bilateral lower extremity cellulitis. History of diabetes. COMPARISON: None. FINDINGS: Normal triphasic waveforms are seen in the right common femoral, profunda femoris, superficial femoral, popliteal, anterior tibial, posterior tibial, and dorsalis pedis arteries. Peak systolic velocities are within normal limits in the right lower extremity. Normal triphasic waveforms are seen in the left common femoral, superficial femoral, and popliteal artery. Biphasic waveforms are seen in the left profunda femoris, anterior tibial, posterior tibial, and dorsalis pedis arteries. Peak systolic velocities are within normal limits within the left lower extremity arterial system. No significant atherosclerotic plaque burden is seen in the bilateral lower extremity arterial systems. IMPRESSION: 1. Normal triphasic and biphasic waveforms in the bilateral lower extremity arterial systems. No evidence of focal stenosis or elevated flow velocities. Dictated by: Dictated on workstation # [id number]
[2021-06-19] MEDS ORDERED: VANCOMYCIN 1500 MG/NS 500 ML IVPB IV SCH ×2 (11:30)
[2021-06-19] MEDS ORDERED: LIDOCAINE/EPI 1%-1:200,000 (XYLOCAINE) 30 ML VIAL ONE (12:28)
[2021-06-19] MEDS: LACTATED RINGERS 1,000 ML IV PRN ×2 (13:40→14:33)
[2021-06-19] MEDS ORDERED: ONDANSETRON 4 MG/2 ML (SDV) Z0FRAN ONE (13:44)
[2021-06-19] MEDS ORDERED: fentaNYL INJ 100 MCG/2 ML AMP ONE (13:44)
[2021-06-19] MEDS ORDERED: proPOfol 200 MG/20 ML (DIPRIVAN) VIAL IV ONE (13:44)
[2021-06-19] MEDS ORDERED: LIDOCAINE PF 2% 5 ML (XYLOCAINE) VIAL ONE (13:44)
[2021-06-19] MEDS ORDERED: MIDAZOLAM 2 MG/2 ML (VERSED) VIAL ONE (13:44)
[2021-06-19] MEDS ORDERED: VANCOMYCIN 1000 MG/VIAL ONE (13:49)
[2021-06-19] MEDS ORDERED: NS (IVPB) 250 ML ONE (14:10)
[2021-06-19] MEDS ORDERED: VANCOMYCIN INJECTION 1,000 MG in NS (IVPB) 250 ML IV ONE (14:30)
[2021-06-19] MEDS ORDERED: SEVOFLURANE (ULTANE) 15 ML INHAL SOLN ONE (14:34)
--- NOTE | 2021-06-19 14:43 | Progress Note-Post Operative ---
Post-Operative Progess Note Surgeon (s)/Formulator Compounder (s) Surgeon JUAN DIANA MD Formulator Compounder: ernst gomez APRN Pre-Operative Diagnosis left 5th toe dibetic ulcer and ischemia Post-Operative Diagnosis same Procedure & Operative Findings Date of Procedure 06/19/21 Procedure Performed/Findings left 5th transmetatarsal amputation, digital block Anesthesia Type general LMA with digital nerve block. Estimated Blood Loss Estimated blood loss (mL): minimal Specimens/Packing Specimens Removed left 5th toe JUAN DIANA MD Jun 19, 2021 14:43
[2021-06-19] MEDS ORDERED: fentaNYL INJ 100 MCG/2 ML AMP IVP ONE (15:00)
[2021-06-19] MEDS ORDERED: morphine INJ 10 MG/ML 1ML (SYR OR VIAL) IVP ONE (15:00)
[2021-06-19] MEDS ORDERED: MEPERIDINE (DEMEROL) INJ 50 MG/ML IVP ONE (15:00)
[2021-06-19] MEDS ORDERED: ONDANSETRON 4 MG/2 ML (SDV) Z0FRAN IVP PRN (15:00)
--- NOTE | 2021-06-19 15:01 | Anesthesia-General Post-Op ---
General Patient Condition Mental Status/LOC: Same as Preop Cardiovascular: Satisfactory Nausea/Vomiting: Absent Respiratory: Satisfactory Pain: Controlled Complications: Absent Post Op Complications Complications None Follow Up Care/Instructions Patient Instructions None needed. Anesthesia/Patient Condition Patient Condition Patient is doing well, no complaints, stable vital signs, no apparent adverse anesthesia problems. No complications reported per nursing. DEEP MCNEILL CRNA Jun 19, 2021 15:01
[2021-06-19] MEDS: ACETAMINOPHEN 500 MG TAB (TYLENOL) PO PRN (17:26)
--- NOTE | 2021-06-19 20:53 | Progress Note ---
Subjective Subjective/Events-last exam Patient doing well today. Going to OR today with Dr Trejo. Pain well controlled Review of Systems General: No Chills, No Fatigue, No Malaise Pulmonary: No Dyspnea, No Cough Cardiovascular: No: Chest Pain, Palpitations, Edema Gastrointestinal: No: Nausea, Vomiting, Abdominal Pain, Diarrhea, Constipation Musculoskeletal: leg pain, foot pain Neurological: Weakness, Incoordination Focused Exam Lactate Level 06/17/21 20:50: Lactic Acid Level 1.43 Objective Exam Last Set of Vital Signs Vital Signs Date Time Temp Pulse Resp B/P (MAP) Pulse Ox O2 Delivery O2 Flow Rate FiO2 06/19/21 19:16 36.3 94 20 119/74 (89) 97 Room Air 06/19/21 15:15 3 Capillary Refill : Less Than 3 SecondsLess Than 3 Seconds I&O Intake and Output 06/18/21 23:59 Intake Total 4332.5 ml Balance 4332.5 ml Intake Oral 2570 ml IV Total 1762.5 ml # Voids 6 # Bowel Movements 4 Daily Weight Change No General: Alert, Oriented X3, Cooperative, No Acute Distress HEENT: Mucous Memb Moist/[place] Lungs: Clear to Auscultation, Normal Air Movement Heart: Regular Rate, No Murmurs Abdomen: Normal Bowel Sounds, Soft, No Tenderness, No Masses Extremities: Other (swelling and erythema of LLE, 5th toe dusky and dark) Neuro: Normal Speech Results/Procedures Lab Laboratory Tests 06/18/21 21:08: Glucometer 250H 06/19/21 02:31: Vancomycin Level Trough 9.3L 06/19/21 05:30: White Blood Count 8.6, Red Blood Count 4.28L, Hemoglobin 13.2L, Hematocrit 38L, Mean Corpuscular Volume 89, Mean Corpuscular Hemoglobin 31, Mean Corpuscular Hemoglobin Concent 35, Red Cell Distribution Width 12.0, Platelet Count 209, Mean Platelet Volume 10.4, Immature Granulocyte % (Auto) 1, Neutrophils (%) (Auto) 66, Lymphocytes (%) (Auto) 21, Monocytes (%) (Auto) 10, Eosinophils (%) (Auto) 2, Basophils (%) (Auto) 1, Neutrophils # (Auto) 5.7, Lymphocytes # (Auto) 1.8, Monocytes # (Auto) 0.8, Eosinophils # (Auto) 0.2, Basophils # (Auto) 0.1, Immature Granulocyte # (Auto) 0.0, Sodium Level 138, Potassium Level 3.6, Chloride Level 108H, Carbon Dioxide Level 19L, Anion Gap 11, Blood Urea Nitrogen 7, Creatinine 0.60, Estimat Glomerular Filtration Rate 149, BUN/Creatinine Ratio 12, Glucose Level 209H, Calcium Level 8.2L, Corrected Calcium 8.9, Total Bilirubin 0.6, Aspartate Amino Transf (AST/SGOT) 10, Alanine Aminotransferase (ALT/SGPT) 13, Alkaline Phosphatase 67, Total Protein 5.9L, Albumin 3.1L 06/19/21 10:18: Glucometer 174H 06/19/21 15:00: Glucometer 152H Microbiology 06/17/21 Blood Culture - Preliminary, Resulted No growth 06/17/21 Urine Culture - Final, Complete >=3 Gram Positive Isolates 06/17/21 Gram Stain - Final, Resulted 06/17/21 Wound Culture - Preliminary, Resulted Mixed Bacterial Deepali Strep, Beta Hemolytic Group B Assessment/Plan Assessment/Plan (1) Cellulitis Status: Acute Assessment & Plan: - Started on IV antibiotics, Doppler neg for DVT 06/19: Patient to OR with Dr Trejo today, Continue IV antibiotics Qualifiers: Qualified Codes: L03.116 - Cellulitis of left lower limb (2) Diabetic foot ulcer Status: Acute Assessment & Plan: - Wound consult placed Qualifiers: Qualified Codes: E11.621 - Type 2 diabetes mellitus with foot ulcer; L97.521 - Non-pressure chronic ulcer of other part of left foot limited to breakdown of skin (3) Insulin dependent diabetes mellitus with complications Status: Chronic Assessment & Plan: - A1c pending, home insulin restarted, SSI, Accucheck ACHS, add daily ASA 06/19: A1c 13.8, increased levemir 20 BID (4) 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
[2021-06-19] MEDS: AtorvaSTATin TABLET 10 MG TABLET PO SCH (21:20)
--- NOTE | 2021-06-19 23:33 | OPERATIVE REPORT ---
DATE OF SERVICE: 06/19/2021 ATTENDING PRIMARY CARE PHYSICIAN: GILBERT Houser. ADMITTING PHYSICIAN: Dr. Ruby Gold. PREOPERATIVE DIAGNOSIS: Diabetic ulceration and ischemia, left fifth digit. POSTOPERATIVE DIAGNOSIS: Soft tissue necrosis and abscess encompassing more proximal within the digit. PROCEDURE: Fifth transmetatarsal amputation and digital nerve block. SURGEON: Juan Trejo MD. TANK CAR LOADER: Jose Burnette APRN. ANESTHESIA: General laryngeal mask airway with a digital nerve block. ESTIMATED BLOOD LOSS: Minimal. FINDINGS: Abscess metatarsophalangeal joint with necrotic debris and ischemic changes, more proximal to the joint. DISPOSITION: The patient tolerated the procedure well. INDICATIONS: The patient is a 41-year-old male who presented to the Emergency Department with pain and redness along the left fifth toe. He has longstanding history of poorly controlled diabetes and has been off his medications for several months. He is also seeing Dr. Pitt at [facility] in the past for wound care of diabetic ulcerations. Wound care was consulted, and he was found to have significant ischemic changes along the left fifth toe as well as overlying bulla along the lateral and plantar aspect, which were open, again consistent with ischemic changes. The patient does have a large vessel blood supply with palpable dorsalis pedis and posterior tibial pulses of the left lower extremity. DESCRIPTION OF PROCEDURE: The patient was brought to the operating room, laid supine on the table. After adequate IV pain and sedative medications and general laryngeal mask airway and intubation, a left fifth metatarsal block was performed using 0.5% Marcaine with epinephrine. The skin was marked off with a marking pen and the subcutaneous tissue opened using electrocautery. An abscess at approximately the metatarsophalangeal joint was identified. This was completely drained and irrigated. The necrotic soft tissue was more proximal to the metatarsal interphalangeal joint. It was decided to proceed with a transmetatarsal amputation. The muscle was dissected off of the distal metatarsal using electrocautery and a periosteal elevator used to remove any other connective tissue. The metatarsal was then cut at the bone cutter. Good hemostasis was observed, and the edges were smoothed using a bone rasp, creating superior and inferior flaps using electrocautery. The skin was then closed using 0 Prolene interrupted sutures. Wound was then cleaned and covered with sterile gauze followed by Kerlix, followed by a Coban followed by a walking shoe. The patient tolerated the procedure well. We instructed to keep the wound clean, dry and to offload pressure on the forefoot and to apply the majority of pressure along the heel. He will also need to proceed with smoking cessation as well as medical compliance or else he will have continued episodes of ulcerations, necrosis and further ischemic changes requiring further amputation. Job ID: [id number] DocumentID: [id number] Dictated Date: 06/19/2021 14:52:12 Chinese Teacher Date: 06/19/2021 23:32:20 Dictated By: JUAN TREJO MD [facility]ITALDary
[2021-06-20 00:51] VITALS: BP 121/73
[2021-06-20] MEDS: NS IV 1000 ML 1,000 ML IV SCH ×2 (03:47→05:30)
[2021-06-20 04:05] VITALS: BP 129/70
[2021-06-20] MEDS: CEFEPIME 1,000 MG/NS 50 ML IVPB IV SCH ×4 (04:27→12:00)
[2021-06-20] MEDS: metroNIDAZOLE 500 MG/100 ML IVPB (PRE-MIX) IV SCH (05:30)
[2021-06-20 06:02] LABS: BASOPHILS # (AUTO) 0.1 10^3/uL (0.0-0.1); BASOPHILS % (AUTO) 1 % (0-10); EOSINOPHILS # (AUTO) 0.1 10^3/uL (0.0-0.3); EOSINOPHILS % (AUTO) 1 % (0-10); HEMATOCRIT 36 % (40-54); HEMOGLOBIN 12.5 g/dL (13.3-17.7); LYMPHOCYTES # (AUTO) 1.7 10^3/uL (1.0-4.0); LYMPHOCYTES % (AUTO) 18 % (12-44); MEAN CORPUSCULAR HEMOGLOBIN 31 pg (25-34); MEAN CORPUSCULAR HGB CONC 34 g/dL (32-36); MEAN CORPUSCULAR VOLUME 89 fL (80-99); MEAN PLATELET VOLUME 10.4 fL (9.0-12.2); MONOCYTES # (AUTO) 0.8 10^3/uL (0.0-1.0); MONOCYTES % (AUTO) 9 % (0-12); NEUTROPHILS # (AUTO) 6.7 10^3/uL (1.8-7.8); NEUTROPHILS % (AUTO) 71 % (42-75); PLATELET COUNT 226 10^3/uL (130-400); WHITE BLOOD COUNT 9.4 10^3/uL (4.3-11.0)
[2021-06-20 06:25] LABS: BILIRUBIN,TOTAL 0.4 MG/DL (0.1-1.0); CALCIUM 8.3 MG/DL (8.5-10.1); CREATININE SERUM 0.61 MG/DL (0.60-1.30); POTASSIUM 3.4 MMOL/L (3.6-5.0); TOTAL PROTEIN 5.8 GM/DL (6.4-8.2)
[2021-06-20] MEDS: inSUlin ASPART (NovoLOG) 1 UNIT/0.01 ML (CHARGE PER UNIT) SC SCH ×2 (06:42→12:00)
[2021-06-20] MEDS: RT--FLUTICASONE/SALMETEROL 232-14 (AIRDUO RespiCLICK) IH SCH (08:02)
[2021-06-20] MEDS: ASPIRIN E.C. 81 MG (ECOTRIN) TAB PO SCH (08:21)
[2021-06-20] MEDS: LACTOBACILLUS ACIDOPHILUS (PROBIOTIC) CAPSULE PO SCH ×2 (08:21→12:00)
[2021-06-20 08:40] VITALS: BP 109/65
[2021-06-20] MEDS ORDERED: TROUGH ORDER-PHARMACY XX NR (10:30)
[2021-06-20 11:09] VITALS: BP 115/68
--- NOTE | 2021-06-20 12:44 | Discharge Summary ---
Diagnosis/Chief Complaint Date of Admission Jun 18, 2021 at 00:00 Date of Discharge Discharge Diagnosis Problems/Diagnosis: (1) Cellulitis Assessment & Plan: - Started on IV antibiotics, Doppler neg for DVT 06/19: Patient to OR with Dr Trejo today, Continue IV antibiotics Qualifiers: Qualified Codes: L03.116 - Cellulitis of left lower limb Status: Acute (2) Diabetic foot ulcer Assessment & Plan: - Wound consult placed Qualifiers: Qualified Codes: E11.621 - Type 2 diabetes mellitus with foot ulcer; L97.521 - Non-pressure chronic ulcer of other part of left foot limited to breakdown of skin Status: Acute (3) Insulin dependent diabetes mellitus with complications Assessment & Plan: - A1c pending, home insulin restarted, SSI, Accucheck ACHS, add daily ASA 06/19: A1c 13.8, increased levemir 20 BID Status: Chronic (4) 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 Patient is a known poorly controlled DM that has been off his medications for several months prior to 2 weeks ago. States that he recently reestablished with Marty Reynaga and got restarted on meds. He came into the ER because his whole leg was starting to hurt him. He previously was being seen by Dr Pitt at [facility] for wou va care. Discharge Summary-Simple/Stand Consultations Discharge Physical Examination Allergies: Coded Allergies: Penicillins (Unverified Allergy, Mild, 01/29/09) clindamycin (Verified Adverse Reaction, Unknown, 12/06/19) NAUSEA AND RASH Vitals & I&Os Vital Sign - Last 12Hours Date Time Temp Pulse Resp B/P (MAP) Pulse Ox O2 Delivery O2 Flow Rate FiO2 06/20/21 12:42 70 06/20/21 11:09 36.9 20 115/68 (84) 97 Room Air 06/19/21 15:15 3 Intake and Output 06/20/21 00:00 Intake Total 1780 ml Balance 1780 ml Hospital Course See final discharge diagnosis. Discharge Instructions to patient/family Please see electronic discharge instructions given to patient. Discharge Medications Reviewed and agree with Discharge Medication list on patient's Discharge Instruc tion sheet MANOJ THOMPSON MD Jun 20, 2021 12:44
[2021-06-20] MEDS ORDERED: HYPOCHLOROUS ACID/NaCl (VASHE) 250 ML IR PRN (12:45)
[2021-06-20] MEDS ORDERED: ASPI-1238 PO (12:51)
[2021-06-20] MEDS ORDERED: CEPH500T PO (12:51)
--- NOTE | 2021-06-20 12:52 | Discharge Summary ---
Discharge [facility] Reconcile Patient Problems Problems Reviewed?: Yes Discharge Medications New, Converted or Re-Newed RX: Transmitted to Pharmacy New Medications: Cephalexin (Cephalexin) 500 Mg Tablet 500 MG PO TID for 7 Days, #21 TAB Aspirin (Aspirin EC) 81 Mg Tablet.dr 81 MG PO DAILY, #30 TAB Continued Medications: Albuterol Sulfate (Proair Hfa) 1 Puff Puff 2 PUFF IH Q4H PRN for SHORTNESS OF BREATH, EA Atorvastatin Calcium (Atorvastatin Calcium) 10 Mg Tablet 10 MG PO HS, TAB Budesonide/Formoterol Fumarate (Symbicort 160-4.5 Mcg Inhaler) 10.2 Gm Hfa.aer.ad 2 PUFF IH BID, EA Glimepiride (Amaryl) 4 Mg Tablet 4 MG PO DAILY, TAB Insulin Detemir (Levemir Flextouch) 100 Unit/1 Ml Insuln.pen 28 UNIT SQ BID, EA Metformin HCl (Metformin HCl ER) 500 Mg Tab.er.24 1000 MG PO BID, TAB TAKES 2 (500MG) TABS Discontinued Medications: Ibuprofen (Ibuprofen) 200 Mg Tablet 400-600 MG PO Q8H PRN for PAIN-MILD (1-4), TAB Patient Instructions Goal/Follow Up Appt: F.u with Marty Reynaga next week Make sure to keep your wound care appts Patient Instructions: - Make sure to complete your antibiotics Activity & Diet Discharge Diet: ADA Diet Activity as Tolerated: Yes MANOJ THOMPSON MD Jun 20, 2021 12:52
--- NOTE | 2021-06-20 13:45 | Progress Note ---
Subjective Date Seen by a Provider: Jun 20, 2021 Time Seen by a Provider: 13:15 Subjective/Events-last exam Patient seen with Dr. Trejo. Patient reports doing well. Denies any pain as well as no fever or chills. Focused Exam Lactate Level 06/17/21 20:50: Lactic Acid Level 1.43 Objective Exam Vital Signs Date Time Temp Pulse Resp B/P (MAP) Pulse Ox O2 Delivery O2 Flow Rate FiO2 06/20/21 12:42 70 06/20/21 11:09 36.9 65 20 115/68 (84) 97 Room Air 06/20/21 08:40 37.0 69 20 109/65 (80) 97 Room Air 06/20/21 08:02 97 Room Air 06/20/21 07:50 Room Air 06/20/21 07:00 71 06/20/21 04:05 37.5 67 20 129/70 (89) 95 Room Air 06/20/21 01:00 60 06/20/21 00:51 36.5 66 20 121/73 (89) 96 Room Air 06/19/21 22:40 97 Room Air 06/19/21 21:20 Room Air 06/19/21 19:16 36.3 94 20 119/74 (89) 97 Room Air 06/19/21 19:00 73 06/19/21 15:51 36.8 64 18 122/78 (93) 96 Room Air 06/19/21 15:45 Room Air 06/19/21 15:45 36.3 20 118/72 (87) 96 Room Air 06/19/21 15:40 20 118/72 (87) 96 Room Air 06/19/21 15:30 20 120/72 (88) 96 Room Air 06/19/21 15:30 Room Air 06/19/21 15:20 20 108/73 (85) 96 Room Air 06/19/21 15:15 OxyMask 3 06/19/21 15:10 20 107/79 (88) 96 OxyMask 4 06/19/21 15:00 OxyMask 6 06/19/21 15:00 20 106/65 (79) 97 OxyMask 6 06/19/21 14:58 36.3 16 99/64 (76) 100 OxyMask 6 06/19/21 14:58 OxyMask 6 I & O 06/20/21 07:00 Intake Total 2380 ml Balance 2380 ml Capillary Refill : Less Than 3 SecondsLess Than 3 Seconds General Appearance: No Apparent Distress, WD/WN Neck: Normal Inspection, Supple Respiratory: No Accessory Muscle Use, No Respiratory Distress Cardiovascular: Regular Rate, Rhythm, No Edema Gastrointestinal: normal bowel sounds, non tender, soft Extremity: Other (Left 5th TMA incision C/D/I. Left foot with redness/erythema on top of foot but appears to be improving from yesterday.) Neurologic/Psychiatric: Alert, Oriented x3 Skin: Normal Color, Warm/Dry Results Lab Laboratory Tests 06/19/21 15:00: Glucometer 152H 06/19/21 20:49: Glucometer 227H 06/20/21 05:15: White Blood Count 9.4, Red Blood Count 4.10L, Hemoglobin 12.5L, Hematocrit 36L, Mean Corpuscular Volume 89, Mean Corpuscular Hemoglobin 31, Mean Corpuscular Hemoglobin Concent 34, Red Cell Distribution Width 12.1, Platelet Count 226, Mean Platelet Volume 10.4, Immature Granulocyte % (Auto) 0, Neutrophils (%) (Auto) 71, Lymphocytes (%) (Auto) 18, Monocytes (%) (Auto) 9, Eosinophils (%) (Auto) 1, Basophils (%) (Auto) 1, Neutrophils # (Auto) 6.7, Lymphocytes # (Auto) 1.7, Monocytes # (Auto) 0.8, Eosinophils # (Auto) 0.1, Basophils # (Auto) 0.1, Immature Granulocyte # (Auto) 0.0, Sodium Level 138, Potassium Level 3.4L, Chloride Level 108H, Carbon Dioxide Level 20L, Anion Gap 10, Blood Urea Nitrogen 5L, Creatinine 0.61, Estimat Glomerular Filtration Rate 125, BUN/Creatinine Ratio 8, Glucose Level 242H, Calcium Level 8.3L, Corrected Calcium 9.1, Total Bilirubin 0.4, Aspartate Amino Transf (AST/SGOT) 13, Alanine Aminotransferase (ALT/SGPT) 14, Alkaline Phosphatase 73, Total Protein 5.8L, Albumin 3.0L 06/20/21 05:50: Glucometer 227H 06/20/21 11:11: Glucometer 196H Microbiology 06/19/21 Gram Stain - Final, Resulted 06/19/21 Anaerobic Culture, Resulted Pending 06/19/21 Surgical Culture - Preliminary, Resulted Group B Streptococci ----- 06/18/21 MRSA Screen - Final, Complete MRSA not isolated 06/17/21 Blood Culture - Preliminary, Resulted No growth 06/17/21 Urine Culture - Final, Complete >=3 Gram Positive Isolates Assessment/Plan Assessment/Plan Assess & Plan/Chief Complaint a 41 year old male with diabetic foot ulcer of the left foot, who is S/P left 5th TMA VSS WBC 9.4 Left foot dressing changed, continue with dressing changes twice daily Follow up with wound care IZAIAH VARELA SUPERVISOR PATCHING Jun 20, 2021 13:45
[2021-06-20 14:15] VITALS: BP 115/68
== END 2021-06-20 14:10 | disposition home or self-care (01) | DRG 617 ==
LOC: EDUNIT# 18:25 → ER 18:27 → 4TH 06-18
PROVIDERS: ADMIT Family Medicine; ATTEND Family Medicine
PROC: 0Y6N0ZF Detachment at Left Foot, Partial 5th Ray, Open Approach (ICD-10-PCS; principal; 2021-06-19 13:50)
DX: E11.621 Type 2 diabetes mellitus with foot ulcer (principal); L03.116 Cellulitis of left lower limb; L97.521 Non-pressure chronic ulcer of other part of left foot limited to breakdown of skin; E78.2 Mixed hyperlipidemia; Z20.822 Contact with and (suspected) exposure to COVID-19; E11.40 Type 2 diabetes mellitus with diabetic neuropathy, unspecified; F17.210 Nicotine dependence, cigarettes, uncomplicated; Z88.0 Allergy status to penicillin; Z88.1 Allergy status to other antibiotic agents; E11.65 Type 2 diabetes mellitus with hyperglycemia; J45.909 Unspecified asthma, uncomplicated; M54.9 Dorsalgia, unspecified; F32.A Depression, unspecified
CPT/HCPCS: 36415; 71045; 73630; 80053; 80202; 80306; 80320; 81000; 82550; 82553; 82947; 83036; 83605; 83615; 83735; 83874; 83880; 84145; 85025; 85379; 85610; 85652; 85730; 86141; 87040; 87070; 87075; 87077; 87081; 87088; 87205; 87636; 93925; 94640; 94760

== ENCOUNTER → 2021-06-23 | Outpatient (CLI) | payer SELFPAY ==
[~2021-06-23] MED LIST changes: +ASPI-1238 PO; +ATOR10TA66 PO; +BUDE10.2 IH; +GLIM4TAB56 PO; +IBUP-2473 PO; +INSU100I29 SQ; +METF-478 PO; +RT-ALBUINH IH
== END ==
LOC: WOUNDCARE 09:47
PROVIDERS: ATTEND Family Medicine
DX: T81.31XA Disruption of external operation (surgical) wound, not elsewhere classified, initial encounter (principal); L97.524 Non-pressure chronic ulcer of other part of left foot with necrosis of bone; L97.512 Non-pressure chronic ulcer of other part of right foot with fat layer exposed; E11.621 Type 2 diabetes mellitus with foot ulcer; E11.65 Type 2 diabetes mellitus with hyperglycemia; E11.43 Type 2 diabetes mellitus with diabetic autonomic (poly)neuropathy; L03.116 Cellulitis of left lower limb; M65.072 Abscess of tendon sheath, left ankle and foot; E44.0 Moderate protein-calorie malnutrition; T65.222A Toxic effect of tobacco cigarettes, intentional self-harm, initial encounter
CPT/HCPCS: 11042; 11043; 87070; 87205; A6260; G0463; L4360

== ENCOUNTER → 2021-07-18 | Outpatient (CLI) | payer SELFPAY | LOC: WOUNDCARE 09:18 | PROVIDERS: ATTEND Family Medicine | DX: E11.52 Type 2 diabetes mellitus with diabetic peripheral angiopathy with gangrene (principal); E11.621 Type 2 diabetes mellitus with foot ulcer; E11.65 Type 2 diabetes mellitus with hyperglycemia; E11.43 Type 2 diabetes mellitus with diabetic autonomic (poly)neuropathy; I96 Gangrene, not elsewhere classified; L97.522 Non-pressure chronic ulcer of other part of left foot with fat layer exposed; L97.512 Non-pressure chronic ulcer of other part of right foot with fat layer exposed; T81.31XA Disruption of external operation (surgical) wound, not elsewhere classified, initial encounter; M65.072 Abscess of tendon sheath, left ankle and foot; E44.0 Moderate protein-calorie malnutrition; T65.222A Toxic effect of tobacco cigarettes, intentional self-harm, initial encounter; F17.218 Nicotine dependence, cigarettes, with other nicotine-induced disorders | CPT/HCPCS: 11042; A6197; G0463 ==

== ENCOUNTER → 2021-08-01 | Outpatient (CLI) | payer SELFPAY | LOC: WOUNDCARE 09:27 | PROVIDERS: ATTEND Family Medicine | DX: T81.31XA Disruption of external operation (surgical) wound, not elsewhere classified, initial encounter (principal); E11.621 Type 2 diabetes mellitus with foot ulcer; E11.65 Type 2 diabetes mellitus with hyperglycemia; E11.43 Type 2 diabetes mellitus with diabetic autonomic (poly)neuropathy; M65.072 Abscess of tendon sheath, left ankle and foot; E44.0 Moderate protein-calorie malnutrition; T65.222A Toxic effect of tobacco cigarettes, intentional self-harm, initial encounter; L97.522 Non-pressure chronic ulcer of other part of left foot with fat layer exposed; L03.116 Cellulitis of left lower limb; E11.52 Type 2 diabetes mellitus with diabetic peripheral angiopathy with gangrene ==

== ENCOUNTER → 2021-08-05 | Outpatient (CLI) | payer SELFPAY | LOC: WOUNDCARE 10:46 | PROVIDERS: ATTEND Family Medicine | DX: T81.31XA Disruption of external operation (surgical) wound, not elsewhere classified, initial encounter (principal); E11.621 Type 2 diabetes mellitus with foot ulcer; E11.65 Type 2 diabetes mellitus with hyperglycemia; E11.43 Type 2 diabetes mellitus with diabetic autonomic (poly)neuropathy; E11.52 Type 2 diabetes mellitus with diabetic peripheral angiopathy with gangrene; M65.072 Abscess of tendon sheath, left ankle and foot; E44.0 Moderate protein-calorie malnutrition; T65.222A Toxic effect of tobacco cigarettes, intentional self-harm, initial encounter; L97.522 Non-pressure chronic ulcer of other part of left foot with fat layer exposed; L03.116 Cellulitis of left lower limb | CPT/HCPCS: 11042; G0463 ==

== ENCOUNTER → 2021-08-14 | Outpatient (CLI) | payer SELFPAY | LOC: WOUNDCARE 09:58 | PROVIDERS: ATTEND Family Medicine | DX: T81.31XA Disruption of external operation (surgical) wound, not elsewhere classified, initial encounter (principal); E11.621 Type 2 diabetes mellitus with foot ulcer; E11.65 Type 2 diabetes mellitus with hyperglycemia; E11.43 Type 2 diabetes mellitus with diabetic autonomic (poly)neuropathy; M65.072 Abscess of tendon sheath, left ankle and foot; E44.0 Moderate protein-calorie malnutrition; T65.222A Toxic effect of tobacco cigarettes, intentional self-harm, initial encounter; L97.522 Non-pressure chronic ulcer of other part of left foot with fat layer exposed; L03.116 Cellulitis of left lower limb; E11.52 Type 2 diabetes mellitus with diabetic peripheral angiopathy with gangrene | CPT/HCPCS: 11042; G0463 ==

== ENCOUNTER 2022-03-13 13:11 | Emergency (ER) | payer SELFPAY ==
--- NOTE | 2022-03-13 13:34 | ED EENT ---
History of Present Illness General Chief Complaint: Dental Problems/Pain Stated Complaint: DENTAL PAIN Nursing Triage Note: PT ARRIVAL TO ER WITH COMPLAINT OF DENTAL PAIN X24 HOURS. TOP LEFT FRONT TOOTH. PAIN SINCE YESTERDAY 03/12/22. TOOK IBUPROFEN WITHOUT RELIEF. History of Present Illness Date Seen by Provider: Mar 13, 2022 Time Seen by Provider: 13:31 Initial Comments 42 y/o male presents this afternoon with c/o upper left canine tenderness, swelling of gums. Symptoms started 2-3 days ago. Pt states he has multiple decayed teeth and has h/o dental abscess. Dental pain is accompanied by andrade murrieta. He denies fever, chills, drainage, swollen lymph nodes, throat pain. Location Injury Occurred: left upper canine Timing/Duration: gradual (for the past 2-3 days) Location: dental Prearrival Treatment: over the counter meds (ibuprofen at 0700 today with some relief ) Associated Symptoms: denies symptoms Allergies and Home Medications Allergies Coded Allergies: Penicillins (Unverified Allergy, Mild, 01/29/09) clindamycin (Verified Adverse Reaction, Unknown, 12/06/19) NAUSEA AND RASH Patient Home Medication List Home Medication List Reviewed: Yes Albuterol Sulfate (Proair Hfa) 1 Puff Puff, 2 PUFF IH Q4H PRN for SHORTNESS OF BREATH, (Reported) Entered as Reported by: JASON LE on 06/18/21 1223 Aspirin (Aspirin EC) 81 Mg Tablet.dr, 81 MG PO DAILY Prescribed by: MANOJ THOMPSON on 06/20/21 1251 Atorvastatin Calcium (Atorvastatin Calcium) 10 Mg Tablet, 10 MG PO HS, (Reported) Entered as Reported by: JASON LE on 06/18/21 1223 Budesonide/Formoterol Fumarate (Symbicort 160-4.5 Mcg Inhaler) 10.2 Gm Hfa.aer.ad, 2 PUFF IH BID, (Reported) Entered as Reported by: JASON LE on 06/18/21 1223 Cephalexin (Cephalexin) 500 Mg Tablet, 500 MG PO TID Prescribed by: MANOJ THOMPSON on 06/20/21 1251 Glimepiride (Amaryl) 4 Mg Tablet, 4 MG PO DAILY, (Reported) Entered as Reported by: JASON LE on 06/18/21 1223 Insulin Detemir (Levemir Flextouch) 100 Unit/1 Ml Insuln.pen, 28 UNIT SQ BID, (Reported) Entered as Reported by: JASON LE on 06/18/21 1223 Metformin HCl (Metformin HCl ER) 500 Mg Tab.er.24, 1,000 MG PO BID, (Reported) Entered as Reported by: JASON LE on 06/18/21 1223 Review of Systems Review of Systems Constitutional: no symptoms reported Eyes: No Symptoms Reported Ears: No Symptoms Reported Nose: no symptoms reported Mouth: pain Throat: no symptoms reported Respiratory: no symptoms reported Skin: no symptoms reported Past Nisnvpx-Fkgalo-Igxjnw Hx Patient Social History Tobacco Use?: Yes Tobacco type used: Cigarettes Smoking Status: Current Everyday Smoker Use of E-Cig and/or Vaping dev: No Substance use?: No Alcohol Use?: No Pt feels they are or have been: No Immunizations Up To Date Tetanus Booster (TDap): Unknown Influenza Vaccine Up-to-Date: No; Not Current First/Initial COVID19 Vaccinat: unvaccinated Second COVID19 Vaccination Trey: unvaccinated Third COVID19 Vaccination Date: unvaccinated Seasonal Allergies Seasonal Allergies: No Past Medical History Surgeries: No Respiratory: Yes Asthma Currently Using CPAP: No Currently Using BIPAP: No Cardiac: No Neurological: Yes (BELLS PALSY) Neuropathy Genitourinary: Yes Kidney Stones Gastrointestinal: Yes Pancreatitis Musculoskeletal: Yes Chronic Back Pain Endocrine: Yes Diabetes, Non-Insulin dep HEENT: Yes (CHRONIC DENTAL ISSUES/CARIES) Cancer: No Psychosocial: Yes Depression Integumentary: No Blood Disorders: No Adverse Reaction/Blood Tranf: No Family Medical History Diabetes Physical Exam Vital Signs Vital Signs - First Documented 03/13/22 13:22 Temp 36.8 Pulse 86 Resp 20 B/P (MAP) 143/81 (101) Pulse Ox 99 Height, Weight, BMI Height: 6'4.00" Weight: 250lbs. oz. [id number]; 27.89 BMI Method:Stated General Appearance: WD/WN, no apparent distress Nose: normal inspection Mouth/Throat: dental tenderness (left upper canine), other (poor dentition, multiple dental caries and absent teeth) Neck: non-tender, full range of motion Skin: normal color, warm/dry Progress/Results/Core Measures Results/Orders My Orders Orders - SCHUCKMAN,RISHABH L FLAG SIGNALER Ketorolac Injection (Toradol Injection) (03/13/22 13:45) Acetaminophen Tablet/Caplet (Tylenol T (03/13/22 13:45) Vital Signs/I&O 03/13/22 13:22 Temp 36.8 Pulse 86 Resp 20 B/P (MAP) 143/81 (101) Pulse Ox 99 2 Blood Pressure Mean: 101 Departure Impression Primary Impression: Dental abscess Additional Impression: Dental caries extending into dentine Disposition: HOME, SELF-CARE Condition: Stable Departure-Patient Inst. Decision time for Depature: 13:47 Referrals: [facility] (PCP/Family) Primary Care Physician Patient Instructions: Tooth Decay, Adult (DC), Tooth Abscess (DC) Scripts Metronidazole (Metronidazole) 500 Mg Tablet 500 MG PO TID, #21 TAB Prov: RISHABH CARY APRN 03/13/22 Levofloxacin (Levofloxacin) 750 Mg Tablet 750 MG PO DAILY, #7 TAB Prov: RISHABH CARY APRN 03/13/22 RISHABH CARY APRN Mar 13, 2022 13:34
[2022-03-13] MEDS ORDERED: KETOROLAC 60 MG/2 ML VIAL IM ONE (13:45)
[2022-03-13] MEDS ORDERED: ACETAMINOPHEN 325 MG TABLET PO ONE (13:45)
[2022-03-13] MEDS ORDERED: LEVO750T PO (13:50)
[2022-03-13] MEDS ORDERED: METR-145 PO (13:50)
[2022-03-13 14:05] VITALS: BP 143/81
== END 2022-03-13 14:05 | disposition home or self-care (01) ==
LOC: EDUNIT# 13:11 → ER 13:12
DX: K04.7 Periapical abscess without sinus (principal); K02.9 Dental caries, unspecified; F17.210 Nicotine dependence, cigarettes, uncomplicated; Z28.310 Unvaccinated for COVID-19
CPT/HCPCS: 99284

== ENCOUNTER 2022-04-15 17:44 | Emergency (ER) | payer SELFPAY ==
[~2022-04-15] VITALS: Ht 190 cm; Wt 104.0 kg
[~2022-04-15 17:44] MED LIST changes: +ALBU8.5H6 IH; +LEVO750T PO; +METR-145 PO; -RT-ALBUINH IH
[2022-04-15 17:49] VITALS: BP 158/96
[2022-04-15] MEDS ORDERED: DOXY100T2 PO (18:27)
[2022-04-15] MEDS ORDERED: ACHD5005 PO (18:29)
--- NOTE | 2022-04-15 18:29 | ED General ---
General Chief Complaint: Dental Problems/Pain Stated Complaint: TOOTH PAIN Nursing Triage Note: PT AMBULATORY TO ER, C/O R SIDED DENTAL PAIN, WORSE TODAY, HX OF DENTAL PROBLEMS Source of Information: Patient Exam Limitations: No Limitations History of Present Illness Date Seen by Provider: Apr 15, 2022 Time Seen by Provider: 18:10 Initial Comments This is a well-appearing 42-year-old male who presents to the ER with complaints of right-sided lower dental pain that started this morning. States that he has poor dental health and has not been able to get in to have his teeth pulled. He denies fever, chills, cough, shortness of breath, nausea, vomiting, diarrhea, abdominal pain. Currently rating pain 7/10. Has take Ibuprofen and Tylenol with minimal relief. Able to eat and drink without difficulty on his left side. Allergies and Home Medications Allergies Coded Allergies: Penicillins (Unverified Allergy, Mild, 01/29/09) clindamycin (Verified Adverse Reaction, Unknown, 12/06/19) NAUSEA AND RASH Patient Home Medication List Home Medication List Reviewed: Yes Albuterol Sulfate (Ventolin Hfa) 1 Puff Puff, 2 PUFF IH Q4H PRN for SHORTNESS OF BREATH, (Reported) Entered as Reported by: JASON LE on 06/18/21 1223 Aspirin (Aspirin EC) 81 Mg Tablet.dr, 81 MG PO DAILY Prescribed by: MANOJ THOMPSON on 06/20/21 1251 Atorvastatin Calcium (Atorvastatin Calcium) 10 Mg Tablet, 10 MG PO HS, (Reporte d) Entered as Reported by: JASON LE on 06/18/21 1223 Budesonide/Formoterol Fumarate (Symbicort 160-4.5 Mcg Inhaler) 10.2 Gm Hfa.aer.ad, 2 PUFF IH BID, (Reported) Entered as Reported by: JASON LE on 06/18/21 1223 Cephalexin (Cephalexin) 500 Mg Tablet, 500 MG PO TID Prescribed by: MANOJ THOMPSON on 06/20/21 1251 Glimepiride (Amaryl) 4 Mg Tablet, 4 MG PO DAILY, (Reported) Entered as Reported by: JASON LE on 06/18/21 1223 Insulin Detemir (Levemir Flextouch) 100 Unit/1 Ml Insuln.pen, 28 UNIT SQ BID, (Reported) Entered as Reported by: JASON LE on 06/18/21 1223 Levofloxacin (Levofloxacin) 750 Mg Tablet, 750 MG PO DAILY Prescribed by: Deidra Garza on 03/13/22 1350 Metformin HCl (Metformin HCl ER) 500 Mg Tab.er.24, 1,000 MG PO BID, (Reported) Entered as Reported by: JASON LE on 06/18/21 1223 Metronidazole (Metronidazole) 500 Mg Tablet, 500 MG PO TID Prescribed by: Deidra Garza on 03/13/22 1350 Past Sztyfed-Xufzfs-Gokgxe Hx Patient Social History Tobacco Use?: Yes Tobacco type used: Cigarettes Smoking Status: Current Everyday Smoker Use of E-Cig and/or Vaping dev: No Substance use?: No Alcohol Use?: No Pt feels they are or have been: No Immunizations Up To Date Tetanus Booster (TDap): Unknown First/Initial COVID19 Vaccinat: NO Second COVID19 Vaccination Trey: unvaccinated Third COVID19 Vaccination Date: unvaccinated Seasonal Allergies Seasonal Allergies: No Past Medical History Surgeries: No Respiratory: Yes Asthma Currently Using CPAP: No Currently Using BIPAP: No Cardiac: No Neurological: Yes (BELLS PALSY) Neuropathy Genitourinary: Yes Kidney Stones Gastrointestinal: Yes Pancreatitis Musculoskeletal: Yes Chronic Back Pain Endocrine: Yes Diabetes, Non-Insulin dep HEENT: Yes (CHRONIC DENTAL ISSUES/CARIES) Cancer: No Psychosocial: Yes Depression Integumentary: No Blood Disorders: No Adverse Reaction/Blood Tranf: No Family Medical History Diabetes Physical Exam Vital Signs Vital Signs - First Documented 04/15/22 17:49 Temp 36.8 Pulse 98 Resp 18 B/P (MAP) 158/96 (116) Pulse Ox 97 O2 Delivery Room Air Capillary Refill : Height, Weight, BMI Height: 6'4.00" Weight: 250lbs. oz. [id number]; 28.00 BMI Method:Stated Progress/Results/Core Measures Suspected Sepsis SIRS Temperature: Pulse: 98 Respiratory Rate: 18 Blood Pressure 158 /96 Mean: 116 Results/Orders Vital Signs/I&O 04/15/22 17:49 Temp 36.8 Pulse 98 Resp 18 B/P (MAP) 158/96 (116) Pulse Ox 97 O2 Delivery Room Air Capillary Refill : Blood Pressure Mean: 116 Departure Impression Primary Impression: Dental caries extending into dentine Disposition: 01 HOME, SELF-CARE Condition: Improved Departure-Patient Inst. Decision time for Depature: 18:26 Referrals: [facility] (PCP/Family) Primary Care Physician Patient Instructions: Dental Pain, Tooth Decay, Adult Add. Discharge Instructions: Plan: 1. Use warm salt water rinses 3-4x per day. 2. Take antibiotics as directed and complete full course. Avoid direct sunlight while taking as this can cause severe lim. 3. Follow up with [facility] to get a new meter and have your mouth reassessed. 4. Use Tylenol or Ibuprofen as needed for pain. May use Ibuprofen 600mg by mouth every 6 hours. Avoid using for more than a couple days. 5. Return for any new, concerning, or worsening symptoms. All discharge instructions reviewed with patient and/or family. Voiced understanding. Scripts Hydrocodone/Acetaminophen (Hydrocodone-Acetamin 5-325 mg) 5 Mg-325 Mg Tablet 1 TAB PO Q4H PRN for PAIN-MODERATE (5-7), #8 TAB 0 Refills Prov: MEAGAN ALMEIDA HOLTER TECHNICIAN 04/15/22 Doxycycline Hyclate (Doxycycline Hyclate) 100 Mg Tablet 100 MG PO BID for 10 Days, #20 TAB 0 Refills Prov: MEAGAN ALMEIDA HOLTER TECHNICIAN 04/15/22 MEAGAN ALMEIDA HOLTER TECHNICIAN Apr 15, 2022 18:29
[2022-04-15] MEDS ORDERED: DOXYCYCLINE 100 MG (VIBRAMYCIN) TABLET PO ONE (18:30)
== END 2022-04-15 18:55 | disposition home or self-care (01) ==
LOC: EDUNIT# 17:44 → ER 17:45
DX: K02.9 Dental caries, unspecified (principal); F17.210 Nicotine dependence, cigarettes, uncomplicated; Z88.0 Allergy status to penicillin; Z28.310 Unvaccinated for COVID-19
CPT/HCPCS: 99283

== ENCOUNTER 2022-10-02 14:08 | Emergency (ER) | payer SELFPAY ==
[~2022-10-02] VITALS: Ht 190 cm; Wt 108.0 kg
[~2022-10-02 14:08] MED LIST changes: -INSU100I29 SQ; +INSU100I30 SQ; +LIDO15SO6 MM; -LIDO20SO23 MM
[2022-10-02] MEDS ORDERED: VANCOMYCIN INJECTION 1,000 MG in NS (IVPB) 250 ML IV ONE (14:30)
[2022-10-02] MEDS ORDERED: CEFEPIME INJECTION 1,000 MG in NS (IVPB) 50 ML IV ONE (14:30)
--- NOTE | 2022-10-02 14:34 | ED Lower Extremity ---
General Chief Complaint: Lower Extremity Stated Complaint: RT FOOT, LITTLE TOE PAIN|DIABETIC Nursing Triage Note: RIGHT 5TH TOE RED, SWOLLEN, AND PAINFUL. HX OF DIABETES Source: patient Exam Limitations: no limitations History of Present Illness Date Seen by Provider: Oct 02, 2022 Time Seen by Provider: 14:31 Initial Comments Patient is a 42-year-old male who presents ED with right foot redness and pain. Patient noted redness today on the top side of his right foot. History of neuropathy. Type II diabetic currently on insulin, metformin, Farxiga. States his blood sugar typically runs around 120-240. Patient noted a ulcer to the right plantar foot 2 weeks ago. Noted redness today. Has had pain and discomfort to the right foot overlying the right little toe over the past 2 days. He states he had his left little toe amputated in the past. Denies fever, chills, nausea vomiting, diarrhea. Not currently on any antibiotics Allergies and Home Medications Allergies Coded Allergies: Penicillins (Unverified Allergy, Mild, 01/29/09) clindamycin (Verified Adverse Reaction, Unknown, 12/06/19) NAUSEA AND RASH Patient Home Medication List Home Medication List Reviewed: Yes Albuterol Sulfate (Ventolin Hfa) 1 Puff Puff, 2 PUFF IH Q4H PRN for SHORTNESS OF BREATH, (Reported) Entered as Reported by: JASON LE on 06/18/21 1223 Aspirin (Aspirin EC) 81 Mg Tablet.dr, 81 MG PO DAILY Prescribed by: MANOJ THOMPSON on 06/20/21 1251 Atorvastatin Calcium (Atorvastatin Calcium) 10 Mg Tablet, 10 MG PO HS, (Reported) Entered as Reported by: JASON LE on 06/18/21 1223 Budesonide/Formoterol Fumarate (Symbicort 160-4.5 Mcg Inhaler) 10.2 Gm Hfa.aer.ad, 2 PUFF IH BID, (Reported) Entered as Reported by: JASON LE on 06/18/21 1223 Cephalexin (Cephalexin) 500 Mg Tablet, 500 MG PO TID Prescribed by: MANOJ THOMPSON on 06/20/21 1251 Cephalexin (Cephalexin) 500 Mg Tablet, 500 MG PO QID Prescribed by: GILBERT MOHAMUD on 10/02/22 1537 Doxycycline Hyclate (Doxycycline Hyclate) 100 Mg Tablet, 100 MG PO BID Prescribed by: MEAGAN ALMEIDA on 04/15/22 1827 Doxycycline Monohydrate (Doxycycline Monohydrate) 100 Mg Tablet, 100 MG PO BID Prescribed by: GILBERT MOHAMUD on 10/02/22 1537 Glimepiride (Amaryl) 4 Mg Tablet, 4 MG PO DAILY, (Reported) Entered as Reported by: JASON LE on 06/18/21 1223 Hydrocodone/Acetaminophen (Hydrocodone-Acetamin 5-325 mg) 5 Mg-325 Mg Tablet, 1 TAB PO Q4H PRN for PAIN-MODERATE (5-7) Prescribed by: MEAGAN ALMEIDA on 04/15/22 1830 Insulin Detemir (Levemir Flextouch) 100 Unit/1 Ml Insuln.pen, 28 UNIT SQ BID, (Reported) Entered as Reported by: JASON LE on 06/18/21 1223 Levofloxacin (Levofloxacin) 750 Mg Tablet, 750 MG PO DAILY Prescribed by: Deidra Garza on 03/13/22 1350 Metformin HCl (Metformin HCl ER) 500 Mg Tab.er.24, 1,000 MG PO BID, (Reported) Entered as Reported by: JASON LE on 06/18/21 1223 Metronidazole (Metronidazole) 500 Mg Tablet, 500 MG PO TID Prescribed by: Deidra Garza on 03/13/22 1350 Review of Systems Constitutional: No chills, No diaphoresis, No fever, No malaise, No weakness EENTM: No blurred vision, No double vision Respiratory: No cough, No dyspnea on exertion Cardiovascular: No chest pain Gastrointestinal: No abdominal pain, No diarrhea, No nausea, No vomiting Genitourinary: No decreased output, No discharge Musculoskeletal: No back pain; joint pain, joint swelling Skin: change in color All Other Systems Reviewed Negative Unless Noted: Yes Past Euszsmc-Tkitst-Pnaccs Hx Patient Social History Tobacco Use?: Yes Tobacco type used: Cigarettes Smoking Status: Current Everyday Smoker Substance use?: No Alcohol Use?: No Immunizations Up To Date Tetanus Booster (TDap): Unknown First/Initial COVID19 Vaccinat: NO Second COVID19 Vaccination Trey: unvaccinated Third COVID19 Vaccination Date: unvaccinated Seasonal Allergies Seasonal Allergies: No Past Medical History Surgeries: No Respiratory: Yes Asthma Currently Using CPAP: No Currently Using BIPAP: No Cardiac: No Neurological: Yes (BELLS PALSY) Neuropathy Genitourinary: Yes Kidney Stones Gastrointestinal: Yes Pancreatitis Musculoskeletal: Yes Chronic Back Pain Endocrine: Yes Diabetes, Non-Insulin dep HEENT: Yes (CHRONIC DENTAL ISSUES/CARIES) Cancer: No Psychosocial: Yes Depression Integumentary: No Blood Disorders: No Adverse Reaction/Blood Tranf: No Family Medical History Diabetes Physical Exam Vital Signs Vital Signs - First Documented 10/02/22 14:16 Temp 36.7 Pulse 86 Resp 16 B/P (MAP) 133/86 (102) Pulse Ox 97 O2 Delivery Room Air Capillary Refill : Less Than 3 Seconds Height, Weight, BMI Height: 6'4.00" Weight: 250lbs. oz. [id number]; 29.00 BMI Method:Stated General Appearance: WD/WN, no apparent distress HEENT: PERRL/EOMI, normal ENT inspection, TMs normal, pharynx normal Neck: non-tender, full range of motion, supple, normal inspection Cardiovascular: regular rate, rhythm, no edema, no gallop, no JVD Respiratory: chest non-tender, lungs clear, normal breath sounds, no respiratory distress, no accessory muscle use Gastrointestinal: normal bowel sounds, non tender, soft Back: normal inspection, no CVA tenderness, no vertebral tenderness Feet: right foot other (Ulcer noted to right plantar foot underneath right little toe. Erythema noted to right plantar foot. Normal active range of motion of the toes. Neurovascular intact. Foot swelling of the right foot dorsum side. 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 No purulent drainage. Odor noted.) Progress/Results/Core Measures Results/Orders Lab Results Laboratory Tests Test 10/02/22 14:40 Range/Units White Blood Count 8.6 4.3-11.0 10^3/uL Red Blood Count 5.42 4.30-5.52 10^6/uL Hemoglobin 16.9 13.3-17.7 g/dL Hematocrit 48 40-54 % Mean Corpuscular Volume 89 80-99 fL Mean Corpuscular Hemoglobin 31 25-34 pg Mean Corpuscular Hemoglobin Concent 35 32-36 g/dL Red Cell Distribution Width 12.4 10.0-14.5 % Platelet Count 234 130-400 10^3/uL Mean Platelet Volume 10.2 9.0-12.2 fL Immature Granulocyte % (Auto) 1 % Neutrophils (%) (Auto) 63 42-75 % Lymphocytes (%) (Auto) 23 12-44 % Monocytes (%) (Auto) 10 0-12 % Eosinophils (%) (Auto) 3 0-10 % Basophils (%) (Auto) 1 0-10 % Neutrophils # (Auto) 5.4 1.8-7.8 10^3/uL Lymphocytes # (Auto) 2.0 1.0-4.0 10^3/uL Monocytes # (Auto) 0.8 0.0-1.0 10^3/uL Eosinophils # (Auto) 0.3 0.0-0.3 10^3/uL Basophils # (Auto) 0.1 0.0-0.1 10^3/uL Immature Granulocyte # (Auto) 0.0 0.0-0.1 10^3/uL Erythrocyte Sedimentation Rate 5 0-15 MM/HR Sodium Level 142 135-145 MMOL/L Potassium Level 3.7 3.6-5.0 MMOL/L Chloride Level 108 H 98-107 MMOL/L Carbon Dioxide Level 22 21-32 MMOL/L Anion Gap 12 5-14 MMOL/L Blood Urea Nitrogen 10 7-18 MG/DL Creatinine 0.69 0.60-1.30 MG/DL Estimat Glomerular Filtration Rate 119 BUN/Creatinine Ratio 14 Glucose Level 170 H 70-105 MG/DL Calcium Level 9.2 8.5-10.1 MG/DL Corrected Calcium 9.2 8.5-10.1 MG/DL Total Bilirubin 0.5 0.1-1.0 MG/DL Aspartate Amino Transf (AST/SGOT) 13 5-34 U/L Alanine Aminotransferase (ALT/SGPT) 12 0-55 U/L Alkaline Phosphatase 73 40-136 U/L C-Reactive Protein High Sensitivity 1.07 H 0.00-0.50 MG/DL Total Protein 7.2 6.4-8.2 GM/DL Albumin 4.0 3.2-4.5 GM/DL My Orders Orders - DAVENPORT,JEAN A PA Foot, Right, 3 View (10/02/22 14:28) Cbc With Automated Diff (10/02/22 14:28) Comprehensive Metabolic Panel (10/02/22 14:28) Erythrocyte Sedimentation Rate (10/02/22 14:28) Hs C Reactive Protein (10/02/22 14:28) Vancomycin Injection (Vancomycin Injecti (10/02/22 14:30) Wound Culture (10/02/22 14:28) Cefepime Injection (Maxipime Injection) (10/02/22 14:30) Medications Given in ED Current Medications Medications Dose Ordered Sig/Nelli Route Start Time Stop Time Status Last Admin Dose Admin Cefepime HCl 1000 mg/Sodium Chloride 50 ml @ 100 mls/hr ONCE ONCE IV 10/02/22 14:30 10/02/22 15:00 DC 10/02/22 15:02 100 MLS/HR Vancomycin HCl 1000 mg/Sodium Chloride 250 ml @ 250 mls/hr ONCE ONCE IV 10/02/22 14:30 10/02/22 15:29 DC 10/02/22 15:02 250 MLS/HR Vital Signs/I&O 10/02/22 14:16 Temp 36.7 Pulse 86 Resp 16 B/P (MAP) 133/86 (102) Pulse Ox 97 O2 Delivery Room Air Blood Pressure Mean: 102 Departure Communication (PCP) Patient presents ED with right dorsum foot swelling and redness with a ulcer on the right plantar foot underlying the fifth MTP joint. No significant swelling noted to the right calf. Chronic neuropathy. Does have sensation. Neurovascular intact. Odor noted to the wound. No active drainage. Concerning for osteomyelitis. States he has had the ulcer at least 2 weeks according to patient. Potentially longer. Scheduled to follow-up with wound care at [facility] next Wednesday. He is afebrile. History of amputation of left toe. X-ray was ordered with CBC, CMP, ESR and CRP. Patient was started on cefepime and vancomycin allergy to clindamycin and penicillin. Patient CBC, CMP grossly unremarkable. ESR 5. CRP of 1. Not significantly high suggesting osteomyelitis. X-ray did not show any cortical destruction. Soft tissue gas is noted near the 5th MTP joint, which may represent an infectious process. No bony erosion. Suspect infection. Patient was discussed with Dr. Cervantes regarding MRI and further evaluation. Recommended outpatient MRI start patient on antibiotics and to follow-up with his office next week. MRI was scheduled for next Wednesday. Provided outpatient order. Patient will be started on Keflex and doxycycline. He has a scheduled follow-up with wound care on Wednesday. If increased redness, swelling of the right foot with redness and swelling into the calf he will need to return back to ED. Wound culture was obtained. Impression Primary Impression: Foot infection Disposition: HOME, SELF-CARE Condition: Stable Departure-Patient Inst. Decision time for Depature: 15:36 Referrals: [facility] [place] Primary Care Physician HSARON CERVANTES DO Patient Instructions: Wound Infection Add. Discharge Instructions: Need to follow-up with scheduling to to set up the appointment for your MRI next Wednesday. After results recommend following up with Dr. Cervantes on Wednesday. Provided number in discharge instructions to schedule appointment for Wednesday. We will need to get a hold of financial . recommend taking NSAIDs for pain. If increased redness or swelling to return back to ED All discharge instructions reviewed with patient and/or family. Voiced understanding. Follow-up with wound care on Wednesday Scripts Doxycycline Monohydrate (Doxycycline Monohydrate) 100 Mg Tablet 100 MG PO BID for 10 Days, #20 TAB Prov: JEAN DAVENPORT 10/02/22 Cephalexin (Cephalexin) 500 Mg Tablet 500 MG PO QID for 7 Days, #28 TAB Prov: JEAN DAVENPORT 10/02/22 JEAN DAVENPORT Oct 02, 2022 14:33
[2022-10-02 14:49] LABS: BASOPHILS # (AUTO) 0.1 10^3/uL (0.0-0.1); BASOPHILS % (AUTO) 1 % (0-10); EOSINOPHILS # (AUTO) 0.3 10^3/uL (0.0-0.3); EOSINOPHILS % (AUTO) 3 % (0-10); HEMATOCRIT 48 % (40-54); HEMOGLOBIN 16.9 g/dL (13.3-17.7); LYMPHOCYTES % (AUTO) 23 % (12-44); MEAN CORPUSCULAR HEMOGLOBIN 31 pg (25-34); MEAN CORPUSCULAR HGB CONC 35 g/dL (32-36); MEAN CORPUSCULAR VOLUME 89 fL (80-99); MEAN PLATELET VOLUME 10.2 fL (9.0-12.2); MONOCYTES # (AUTO) 0.8 10^3/uL (0.0-1.0); MONOCYTES % (AUTO) 10 % (0-12); NEUTROPHILS # (AUTO) 5.4 10^3/uL (1.8-7.8); NEUTROPHILS % (AUTO) 63 % (42-75); PLATELET COUNT 234 10^3/uL (130-400); WHITE BLOOD COUNT 8.6 10^3/uL (4.3-11.0)
--- NOTE | 2022-10-02 15:01 | Diagnostic Imaging Report ---
INDICATION: Left 5th toe pain. EXAMINATION: AP, oblique and lateral views of the right foot were obtained. FINDINGS: No fracture or acute bony abnormality is seen. There is soft tissue gas extending near the 5th MTP joint, questioned infectious etiology. IMPRESSION: No fracture or erosive bony lesion. Soft tissue gas is noted near the 5th MTP joint, which may represent an infectious process. MRI may be helpful for further characterization, as clinically warranted. Dictated by: Dictated on workstation # [id number]
[2022-10-02 15:07] LABS: POTASSIUM 3.7 MMOL/L (3.6-5.0)
[2022-10-02 15:08] LABS: CALCIUM 9.2 MG/DL (8.5-10.1)
[2022-10-02 15:09] LABS: TOTAL PROTEIN 7.2 GM/DL (6.4-8.2)
[2022-10-02 15:11] LABS: BILIRUBIN,TOTAL 0.5 MG/DL (0.1-1.0)
[2022-10-02 15:13] LABS: CREATININE SERUM 0.69 MG/DL (0.60-1.30)
[2022-10-02 15:26] LABS: ERYTHROCYTE SEDIMENTATION RATE 5 MM/HR (0-15)
[2022-10-02] MEDS ORDERED: CEPH500T PO (15:37)
[2022-10-02] MEDS ORDERED: DOXY100T31 PO (15:37)
[2022-10-02 16:35] VITALS: BP 125/83
== END 2022-10-02 16:35 | disposition home or self-care (01) ==
LOC: EDUNIT# 14:08 → ER 14:11
DX: E11.621 Type 2 diabetes mellitus with foot ulcer (principal); L97.519 Non-pressure chronic ulcer of other part of right foot with unspecified severity; E11.40 Type 2 diabetes mellitus with diabetic neuropathy, unspecified; F17.210 Nicotine dependence, cigarettes, uncomplicated; Z79.4 Long term (current) use of insulin; Z79.84 Long term (current) use of oral hypoglycemic drugs; Z28.310 Unvaccinated for COVID-19; Z88.0 Allergy status to penicillin; Z88.1 Allergy status to other antibiotic agents
CPT/HCPCS: 36415; 73630; 80053; 85025; 85652; 86141; 87070; 87205

== ENCOUNTER 2023-03-25 14:23 | Emergency (ER) | payer SELFPAY ==
[~2023-03-25] VITALS: Ht 190.5 cm; Wt 113.3 kg
[~2023-03-25 14:23] MED LIST changes: +DOXY100T31 PO; +LIDO15SO3 MM; -LIDO15SO6 MM
[2023-03-25] MEDS ORDERED: ACHD5005 PO (14:51)
[2023-03-25] MEDS ORDERED: DOXY100T31 PO (14:51)
--- NOTE | 2023-03-25 14:51 | ED EENT ---
History of Present Illness General Chief Complaint: Dental Problems/Pain Stated Complaint: DENTAL PAIN | SWELLING Nursing Triage Note: pt amb to triage rm with cc of infected tooth on the bottom right. pt reports that symptoms started last night. Source: patient Exam Limitations: no limitations History of Present Illness Date Seen by Provider: Mar 25, 2023 Time Seen by Provider: 14:47 Initial Comments Patient is a 43-year-old male who presents ED with right lower dental pain. Dental pain started last night. Developed some right lower jaw swelling. Increase in swelling and pain since last night. Has been taking ibuprofen without much improvement. States he has poor teeth and he knows several of his teeth need to get pulled. Denies of any fever chills body aches, neck swelling, nausea, vomiting, diarrhea. Reports history of similar symptoms on other teeth. Does have a dentist at [facility]. Patient was not able to get a appointment today. Allergies and Home Medications Allergies Coded Allergies: Penicillins (Unverified Allergy, Mild, 01/29/09) clindamycin (Verified Adverse Reaction, Unknown, 12/06/19) NAUSEA AND RASH Patient Home Medication List Home Medication List Reviewed: Yes Albuterol Sulfate (Ventolin Hfa) 1 Puff Puff, 2 PUFF IH Q4H PRN for SHORTNESS OF BREATH, (Reported) Entered as Reported by: JASON LE on 06/18/21 1223 Aspirin (Aspirin EC) 81 Mg Tablet.dr, 81 MG PO DAILY Prescribed by: MANOJ THOMPSON on 06/20/21 1251 Atorvastatin Calcium (Atorvastatin Calcium) 10 Mg Tablet, 10 MG PO HS, (Reported) Entered as Reported by: JASON LE on 06/18/21 1223 Budesonide/Formoterol Fumarate (Symbicort 160-4.5 Mcg Inhaler) 10.2 Gm Hfa.aer.ad, 2 PUFF IH BID, (Reported) Entered as Reported by: JASON LE on 06/18/21 1223 Cephalexin (Cephalexin) 500 Mg Tablet, 500 MG PO TID Prescribed by: MANOJ THOMPSON on 06/20/21 1251 Cephalexin (Cephalexin) 500 Mg Tablet, 500 MG PO QID Prescribed by: GILBERT MOHAMUD on 10/02/22 1537 Doxycycline Hyclate (Doxycycline Hyclate) 100 Mg Tablet, 100 MG PO BID Prescribed by: MEAGAN ALMEIDA on 04/15/22 182 Doxycycline Monohydrate (Doxycycline Monohydrate) 100 Mg Tablet, 100 MG PO BID Prescribed by: GILBERT MOHAMUD on 10/02/22 1537 Doxycycline Monohydrate (Doxycycline Monohydrate) 100 Mg Tablet, 100 MG PO BID Prescribed by: GILBERT MOHAMUD on 03/25/23 1451 Glimepiride (Amaryl) 4 Mg Tablet, 4 MG PO DAILY, (Reported) Entered as Reported by: JASON LE on 06/18/21 1223 Hydrocodone/Acetaminophen (Hydrocodone-Acetamin 5-325 mg) 5 Mg-325 Mg Tablet, 1 TAB PO Q4H PRN for PAIN-MODERATE (5-7) Prescribed by: MEAGAN ALMEIDA on 04/15/22 183 Hydrocodone/Acetaminophen (Hydrocodone-Acetamin 5-325 mg) 5 Mg-325 Mg Tablet, 1 TAB PO Q4H PRN for PAIN-MODERATE (5-7) Prescribed by: GILBERT MOHAMUD on 03/25/23 1451 Insulin Detemir (Levemir Flextouch) 100 Unit/1 Ml Insuln.pen, 28 UNIT SQ BID, (Reported) Entered as Reported by: JASON LE on 06/18/21 1223 Levofloxacin (Levofloxacin) 750 Mg Tablet, 750 MG PO DAILY Prescribed by: Deidra Garza on 03/13/22 1350 Metformin HCl (Metformin HCl ER) 500 Mg Tab.er.24, 1,000 MG PO BID, (Reported) Entered as Reported by: JASON LE on 06/18/21 1223 Metronidazole (Metronidazole) 500 Mg Tablet, 500 MG PO TID Prescribed by: Deidra Garza on 03/13/22 1350 Review of Systems Review of Systems Constitutional: No chills, No diaphoresis Eyes: Denies Drainage, Denies Decreased Acuity Ears: Denies Dizziness, Denies Pain Nose: denies clots, denies congestion Mouth: denies clots, denies loose teeth; pain, swelling Throat: denies pain, denies swelling Respiratory: No cough, No dyspnea on exertion Cardiovascular: No chest pain Gastrointestinal: No abdominal pain, No diarrhea, No nausea, No vomiting Musculoskeletal: No back pain, No joint pain Skin: No change in color All Other Systems Reviewed Negative Unless Noted: Yes Past Viffmfi-Tfxxst-Ajjfjq Hx Patient Social History Tobacco Use?: Yes Tobacco type used: Cigarettes Substance use?: No Alcohol Use?: No Immunizations Up To Date Tetanus Booster (TDap): Unknown First/Initial COVID19 Vaccinat: NO Second COVID19 Vaccination Trey: NO Third COVID19 Vaccination Date: NO Seasonal Allergies Seasonal Allergies: No Past Medical History Surgeries: No Respiratory: Yes Asthma Currently Using CPAP: No Currently Using BIPAP: No Cardiac: No Neurological: Yes (BELLS PALSY) Neuropathy Genitourinary: Yes Kidney Stones Gastrointestinal: Yes Pancreatitis Musculoskeletal: Yes Chronic Back Pain Endocrine: Yes Diabetes, Non-Insulin dep HEENT: Yes (CHRONIC DENTAL ISSUES/CARIES) Cancer: No Psychosocial: Yes Depression Integumentary: No Blood Disorders: No Adverse Reaction/Blood Tranf: No Family Medical History Diabetes Physical Exam Vital Signs Vital Signs - First Documented 03/25/23 14:43 Temp 36.7 Pulse 92 B/P (MAP) 146/84 (104) Pulse Ox 98 O2 Delivery Room Air Height, Weight, BMI Height: 6'4.00" Weight: 250lbs. oz. [id number]; 31.00 BMI Method:Stated General Appearance: WD/WN, no apparent distress Eyes: bilateral eye normal inspection, bilateral eye PERRL, bilateral eye EOMI Ears: bilateral ear auricle normal, bilateral ear canal normal, bilateral ear TM normal Nose: normal inspection Mouth/Throat: other (Severe dental disease. Extensive decay. Right lower molar with severe decay with surrounding gum swelling erythema. 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 Poor dentention throughout. Concern for dental abscess. There is no evidence of redness or swelling migrating from the face. Tolerating secretions. No stridor. No sore throat. Symptoms started yesterday. Differential diagnosis dental abscess, pulpitis, gingivitis. On exam no evidence of obvious periodontal abscess. Concern for periapical abscess. Refused dental block. At this time will discharge with antibiotics and a few days worth of pain medication. Does follow a dentist at [facility] which I recommend scheduling appointment for further evaluation. Allergic to penicillins and clindamycin. Has been on doxycycline in the past for dental infections which I will discharge. If increased redness swelling of the face return back to ED. Recommend cool compresses.'s soft foods. if any worsening symptoms return back to ED. Impression Primary Impression: Dental abscess Disposition: HOME, SELF-CARE Condition: Stable Departure-Patient Inst. Decision time for Depature: 14:49 Referrals: [facility] (PCP/Family) Primary Care Physician Patient Instructions: Dental Pain ED Add. Discharge Instructions: If increased redness or swelling to return back to ED. Follow-up your dentist for further evaluation. Take pain medication as needed. Recommend ibuprofen daily. Ice to help with swelling. Recommend soft foods All discharge instructions reviewed with patient and/or family. Voiced understanding. Scripts Hydrocodone/Acetaminophen (Hydrocodone-Acetamin 5-325 mg) 5 Mg-325 Mg Tablet 1 TAB PO Q4H PRN for PAIN-MODERATE (5-7), #8 TAB Prov: JEAN DAVENPORT 03/25/23 Doxycycline Monohydrate (Doxycycline Monohydrate) 100 Mg Tablet 100 MG PO BID for 7 Days, #14 TAB Prov: JEAN DAVENPORT 03/25/23 JEAN DAVENPORT Mar 25, 2023 14:51
[2023-03-25 15:07] VITALS: BP 146/84
== END 2023-03-25 15:07 | disposition home or self-care (01) ==
LOC: EDUNIT# 14:23 → ER 14:25
DX: K04.7 Periapical abscess without sinus (principal); F17.210 Nicotine dependence, cigarettes, uncomplicated; Z88.0 Allergy status to penicillin; Z88.1 Allergy status to other antibiotic agents
CPT/HCPCS: 99281